=== PATIENT | male | born 1940 | race Caucasian/White ===

== ENCOUNTER → 2017-06-23 | Outpatient (CLI) | payer OTHER ==
[~2017-06-23] MED LIST: AFRIN15 ML NASAL; ALDACTONE25 MG PO; ATORVASTATIN CA40 MG PO; BAYER CHEWABLE81 MG PO; BENICAR20 MG PO; BYSTOLIC 5 MG5 M1 PO; CELEBREX 200 M200 M1 PO; COLACE100 MG PO; COUMADIN 2 MG TA2 M1 PO; COUMADIN 5 MG TA5 M1 PO; LASIX 40 MG TAB40 M2 PO; MOM PO; NEURONTIN 300300 M1 PO; NORCO 10-325 T1 EACH PO; NORCO 5-325 TA1 EACH PO; PRADAXA150 MG PO; PROTONIX40 M1 PO; SENNA PO; TYLENOL325 MG PO; VITAMIN B-12500 MCG PO; VITAMIN D1000 UNI1 PO
== END ==
LOC: HYPER 03-04 11:19
DX: L97.821 Non-pressure chronic ulcer of other part of left lower leg limited to breakdown of skin (principal); L97.811 Non-pressure chronic ulcer of other part of right lower leg limited to breakdown of skin; I87.323 Chronic venous hypertension (idiopathic) with inflammation of bilateral lower extremity; I77.9 Disorder of arteries and arterioles, unspecified; I48.1 Persistent atrial fibrillation; I25.10 Atherosclerotic heart disease of native coronary artery without angina pectoris; E78.00 Pure hypercholesterolemia, unspecified; I12.9 Hypertensive chronic kidney disease with stage 1 through stage 4 chronic kidney disease, or unspecified chronic kidney disease; N18.9 Chronic kidney disease, unspecified; I25.2 Old myocardial infarction; M19.90 Unspecified osteoarthritis, unspecified site; M86.9 Osteomyelitis, unspecified; F17.200 Nicotine dependence, unspecified, uncomplicated; Z96.611 Presence of right artificial shoulder joint; Z96.612 Presence of left artificial shoulder joint; Z86.73 Personal history of transient ischemic attack (TIA), and cerebral infarction without residual deficits

== ENCOUNTER → 2017-06-30 | Outpatient (CLI) | payer OTHER | LOC: HYPER 07:14 | DX: L97.821 Non-pressure chronic ulcer of other part of left lower leg limited to breakdown of skin (principal); L97.811 Non-pressure chronic ulcer of other part of right lower leg limited to breakdown of skin; I87.323 Chronic venous hypertension (idiopathic) with inflammation of bilateral lower extremity; I77.9 Disorder of arteries and arterioles, unspecified; M79.89 Other specified soft tissue disorders; I48.1 Persistent atrial fibrillation; I25.10 Atherosclerotic heart disease of native coronary artery without angina pectoris; I25.2 Old myocardial infarction; M19.90 Unspecified osteoarthritis, unspecified site; M86.9 Osteomyelitis, unspecified; F17.200 Nicotine dependence, unspecified, uncomplicated; Z96.611 Presence of right artificial shoulder joint; Z96.612 Presence of left artificial shoulder joint ==

== ENCOUNTER → 2017-07-07 | Outpatient (CLI) | payer OTHER | LOC: HYPER 06:51 | DX: I87.323 Chronic venous hypertension (idiopathic) with inflammation of bilateral lower extremity (principal); R60.0 Localized edema; I77.9 Disorder of arteries and arterioles, unspecified; M79.669 Pain in unspecified lower leg; M79.89 Other specified soft tissue disorders; I25.10 Atherosclerotic heart disease of native coronary artery without angina pectoris; E78.00 Pure hypercholesterolemia, unspecified; I25.2 Old myocardial infarction; M19.90 Unspecified osteoarthritis, unspecified site; I12.9 Hypertensive chronic kidney disease with stage 1 through stage 4 chronic kidney disease, or unspecified chronic kidney disease; N18.9 Chronic kidney disease, unspecified; F17.210 Nicotine dependence, cigarettes, uncomplicated ==

== ENCOUNTER → 2017-07-14 | Outpatient (CLI) | payer OTHER | LOC: HYPER 07:08 | DX: I87.333 Chronic venous hypertension (idiopathic) with ulcer and inflammation of bilateral lower extremity (principal); L97.821 Non-pressure chronic ulcer of other part of left lower leg limited to breakdown of skin; L97.811 Non-pressure chronic ulcer of other part of right lower leg limited to breakdown of skin; M79.89 Other specified soft tissue disorders; I48.1 Persistent atrial fibrillation; M19.90 Unspecified osteoarthritis, unspecified site; I25.2 Old myocardial infarction; M86.8X6 Other osteomyelitis, lower leg; I25.10 Atherosclerotic heart disease of native coronary artery without angina pectoris; E78.00 Pure hypercholesterolemia, unspecified; F17.200 Nicotine dependence, unspecified, uncomplicated; Z96.612 Presence of left artificial shoulder joint; Z86.73 Personal history of transient ischemic attack (TIA), and cerebral infarction without residual deficits; Z96.611 Presence of right artificial shoulder joint ==

== ENCOUNTER → 2017-08-04 | Outpatient (CLI) | payer OTHER | LOC: HYPER 07-28 11:29 | DX: I87.333 Chronic venous hypertension (idiopathic) with ulcer and inflammation of bilateral lower extremity (principal); L97.821 Non-pressure chronic ulcer of other part of left lower leg limited to breakdown of skin; L97.811 Non-pressure chronic ulcer of other part of right lower leg limited to breakdown of skin; M86.8X8 Other osteomyelitis, other site; I48.91 Unspecified atrial fibrillation; I25.10 Atherosclerotic heart disease of native coronary artery without angina pectoris; I25.2 Old myocardial infarction; I77.9 Disorder of arteries and arterioles, unspecified; E78.00 Pure hypercholesterolemia, unspecified; M19.90 Unspecified osteoarthritis, unspecified site; F17.200 Nicotine dependence, unspecified, uncomplicated; M79.89 Other specified soft tissue disorders; Z96.612 Presence of left artificial shoulder joint; Z86.73 Personal history of transient ischemic attack (TIA), and cerebral infarction without residual deficits; Z96.611 Presence of right artificial shoulder joint ==

== ENCOUNTER → 2017-08-18 | Outpatient (CLI) | payer OTHER | LOC: HYPER 06:49 | DX: I87.323 Chronic venous hypertension (idiopathic) with inflammation of bilateral lower extremity (principal); L97.821 Non-pressure chronic ulcer of other part of left lower leg limited to breakdown of skin; L97.811 Non-pressure chronic ulcer of other part of right lower leg limited to breakdown of skin; I12.9 Hypertensive chronic kidney disease with stage 1 through stage 4 chronic kidney disease, or unspecified chronic kidney disease; N18.9 Chronic kidney disease, unspecified; I25.10 Atherosclerotic heart disease of native coronary artery without angina pectoris; I25.2 Old myocardial infarction; I48.1 Persistent atrial fibrillation; E78.00 Pure hypercholesterolemia, unspecified; M19.90 Unspecified osteoarthritis, unspecified site; M86.8X8 Other osteomyelitis, other site; M79.89 Other specified soft tissue disorders; I77.9 Disorder of arteries and arterioles, unspecified; F17.200 Nicotine dependence, unspecified, uncomplicated; Z96.653 Presence of artificial knee joint, bilateral; Z96.612 Presence of left artificial shoulder joint; Z96.611 Presence of right artificial shoulder joint; Z86.73 Personal history of transient ischemic attack (TIA), and cerebral infarction without residual deficits ==

== ENCOUNTER → 2017-09-01 | Outpatient (CLI) | payer OTHER | LOC: HYPER 07:07 | DX: I87.333 Chronic venous hypertension (idiopathic) with ulcer and inflammation of bilateral lower extremity (principal); L97.821 Non-pressure chronic ulcer of other part of left lower leg limited to breakdown of skin; L97.811 Non-pressure chronic ulcer of other part of right lower leg limited to breakdown of skin; M86.8X8 Other osteomyelitis, other site; I25.10 Atherosclerotic heart disease of native coronary artery without angina pectoris; I25.2 Old myocardial infarction; I48.1 Persistent atrial fibrillation; E78.5 Hyperlipidemia, unspecified; I77.9 Disorder of arteries and arterioles, unspecified; M19.90 Unspecified osteoarthritis, unspecified site; M79.89 Other specified soft tissue disorders; M79.669 Pain in unspecified lower leg; F17.200 Nicotine dependence, unspecified, uncomplicated; Z79.02 Long term (current) use of antithrombotics/antiplatelets; Z86.73 Personal history of transient ischemic attack (TIA), and cerebral infarction without residual deficits; Z96.612 Presence of left artificial shoulder joint; Z96.611 Presence of right artificial shoulder joint ==

== ENCOUNTER → 2017-09-18 | Outpatient (CLI) | payer OTHER | LOC: HYPER 06:54 | DX: I87.323 Chronic venous hypertension (idiopathic) with inflammation of bilateral lower extremity (principal); L97.821 Non-pressure chronic ulcer of other part of left lower leg limited to breakdown of skin; L97.811 Non-pressure chronic ulcer of other part of right lower leg limited to breakdown of skin; I12.9 Hypertensive chronic kidney disease with stage 1 through stage 4 chronic kidney disease, or unspecified chronic kidney disease; N18.9 Chronic kidney disease, unspecified; M86.8X8 Other osteomyelitis, other site; E78.00 Pure hypercholesterolemia, unspecified; I25.2 Old myocardial infarction; I25.10 Atherosclerotic heart disease of native coronary artery without angina pectoris; I77.9 Disorder of arteries and arterioles, unspecified; I48.1 Persistent atrial fibrillation; M79.669 Pain in unspecified lower leg; M79.89 Other specified soft tissue disorders; M19.90 Unspecified osteoarthritis, unspecified site; F17.200 Nicotine dependence, unspecified, uncomplicated; Z96.612 Presence of left artificial shoulder joint; Z86.73 Personal history of transient ischemic attack (TIA), and cerebral infarction without residual deficits; Z79.02 Long term (current) use of antithrombotics/antiplatelets; Z96.611 Presence of right artificial shoulder joint ==

== ENCOUNTER → 2017-10-07 | Outpatient (CLI) | payer OTHER | LOC: HYPER 07:09 | DX: I87.323 Chronic venous hypertension (idiopathic) with inflammation of bilateral lower extremity (principal); L97.821 Non-pressure chronic ulcer of other part of left lower leg limited to breakdown of skin; L97.811 Non-pressure chronic ulcer of other part of right lower leg limited to breakdown of skin; I12.9 Hypertensive chronic kidney disease with stage 1 through stage 4 chronic kidney disease, or unspecified chronic kidney disease; N18.9 Chronic kidney disease, unspecified; M86.8X8 Other osteomyelitis, other site; I77.9 Disorder of arteries and arterioles, unspecified; I48.1 Persistent atrial fibrillation; I25.10 Atherosclerotic heart disease of native coronary artery without angina pectoris; E78.00 Pure hypercholesterolemia, unspecified; I25.2 Old myocardial infarction; M79.669 Pain in unspecified lower leg; M79.89 Other specified soft tissue disorders; M19.90 Unspecified osteoarthritis, unspecified site; F17.200 Nicotine dependence, unspecified, uncomplicated; Z79.02 Long term (current) use of antithrombotics/antiplatelets; Z86.73 Personal history of transient ischemic attack (TIA), and cerebral infarction without residual deficits; Z96.612 Presence of left artificial shoulder joint; Z96.611 Presence of right artificial shoulder joint ==

== ENCOUNTER → 2017-10-20 | Outpatient (CLI) | payer OTHER | LOC: HYPER 07:16 | DX: I87.323 Chronic venous hypertension (idiopathic) with inflammation of bilateral lower extremity (principal); L97.821 Non-pressure chronic ulcer of other part of left lower leg limited to breakdown of skin; L97.811 Non-pressure chronic ulcer of other part of right lower leg limited to breakdown of skin; M79.89 Other specified soft tissue disorders; I13.10 Hypertensive heart and chronic kidney disease without heart failure, with stage 1 through stage 4 chronic kidney disease, or unspecified chronic kidney disease; N18.9 Chronic kidney disease, unspecified; I25.10 Atherosclerotic heart disease of native coronary artery without angina pectoris; E78.00 Pure hypercholesterolemia, unspecified; I48.91 Unspecified atrial fibrillation; I77.9 Disorder of arteries and arterioles, unspecified; I25.2 Old myocardial infarction; M86.8X8 Other osteomyelitis, other site; M19.90 Unspecified osteoarthritis, unspecified site; F17.200 Nicotine dependence, unspecified, uncomplicated; Z79.02 Long term (current) use of antithrombotics/antiplatelets; Z86.73 Personal history of transient ischemic attack (TIA), and cerebral infarction without residual deficits ==

== ENCOUNTER 2018-09-26 20:35 | Inpatient (IN) | payer OTHER ==
[~2018-09-26] VITALS: Ht 190.5 cm; Wt 108.5 kg
--- NOTE | ~2018-09-26 | HC ---
[facility] [place] [address] CONSULTATION Name: TAYO MENESES Room #: 356-P ADM IN M.R.#: [id number] Admission: 09/26/18 ������������������ Attend Phys: Sacha Mcdermott Discharge: ������������������ Date of : 38 Report #: [id number] THIS REPORT FOR: //name// CC: Pascual Mcdermott DATE OF SERVICE: 09/27/2018 REASON FOR CONSULTATION: Hyperkalemia and elevated creatinine level. HISTORY OF PRESENT ILLNESS: This is an 78-year-old male with several chronic medical problems. He has a long history of atrial fibrillation. He has also had some hypertension. He has had some vascular disease in addition. He was on his usual chronic medications and there is some debate about what those actually include. At minimum he was on some losartan 100 mg daily, spironolactone 25 mg daily, some Bystolic 5 mg daily, about 10 days ago, he had a lesion removed from his left duncan. This leg wounds are required some extensive excision and with concern of infection he was placed on some Bactrim, which he was taking twice a day. He began feeling weaker and came to the Emergency Room yesterday. Upon presentation to the Emergency Room, he was found to be hyperkalemic with a potassium of 7.3. His bicarbonate is 20, sodium was 129. Glucose was 111, BUN 96, creatinine 3.8. He had no EKG changes of hyperkalemia. He was in his usual chronic atrial fibrillation. He was treated in the Emergency Room with insulin, dextrose, albuterol, Kayexalate, some IV fluids. Within a couple of hours his potassium was down to 6.7. He was continued on IV fluids overnight. The Kayexalate has had its effect as he has had several stools. In addition, with his creatinine level of 3.8, we reviewed that he has some chronic kidney disease with a baseline creatinine in the 1.6 range that at least as recently as 01/2017. I do not have the interim creatinine levels. He has seen a dermatological surgeon at [facility] who has told him that his renal function is stable. He is chronically on the losartan. He is unaware of proteinuria, hematuria, nephrolithiasis, urinary tract infections. A prior urinalysis from 5 years ago showed no proteinuria at that time, but I do not have a current urinalysis. It has been ordered. With his weakness, he is not quite as much intake of liquids. He states he has no trouble voiding urine. No nonsteroidal exposures. No contrast exposures. His only concern from a medication standpoint is his Emergency Room meds list not only the losartan, but also some olmesartan 20 mg daily, but the patient is unaware of whether he is actually on the olmesartan or not. He does readily recognized the losartan as well as the spironolactone. PAST MEDICAL HISTORY: Longstanding hypertension. He also has chronic atrial fib and is chronically on Xarelto. 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 He was hospitalized then, received tPA, and had fairly good response to that and spent some time on the rehab floor before going home. He has had prior partial colon resection for diverticular disease. [facility] [address] [place] [address] CONSULTATION Name: TAYO MENESES Room #: 356-P ADM IN M.R.#: [id number] Admission: 09/26/18 ������������������ Attend Phys: Sacha Mcdermott Discharge: ������������������ Date of : 38 Report #: [id number] He has had a prior appendectomy. He has had many joint surgeries over the years and I will not recount all of those. He has chronic kidney disease as noted above. He knows of no prostate trouble. MEDICATIONS: Again include losartan 100 mg daily, Bystolic 5 mg daily, spironolactone 25 mg daily. He is also on atorvastatin 40 mg daily, tramadol 50 mg twice daily, Xarelto 15 mg daily, vitamin D 1000 units daily and some gabapentin for some peripheral neuropathy 300 mg b.i.d., again we were uncertain about the olmesartan. He has been on the Bactrim twice daily just for the past 10 days. ALLERGIES: No known medication allergies. FAMILY HISTORY: Unremarkable. SOCIAL HISTORY: The patient is , currently lives in [place], [place]. 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 REVIEW OF SYSTEMS: Currently, denies dyspnea, cough, chest pain or palpitations. He is unaware of irregular heart rhythm except he knows that he is always in atrial fibrillation. Appetite has been a bit down. He had one episode of diarrhea prior to coming in. He has had more since he came in after getting the Kayexalate. Denies abdominal pain at this time. He has chronic lower extremity edema of both legs. He had the recent excision from his left leg of a benign lesion. He has chronic erythema of the legs with the chronic edema. He walks with an assistive device, but he is able to get around. He does not really notice any weakness on the left side since his stroke. 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 He has obstructive sleep apnea, but does not tolerate CPAP. Complains of no dyspnea at this time. PHYSICAL EXAMINATION: GENERAL: A very pleasant 78-year-old male, awake, alert and oriented at this time. VITAL SIGNS: Blood pressure 103/59, heart rate 86 and irregular, temperature 98.3. He has had no fever since admission, oxygen saturation 97%. HEENT: Shows right eye has reactive pupils, nonicteric sclerae on the right. Oral mucosa is moist. NECK: Supple without adenopathy, thyromegaly, JVD or bruit. CHEST: Generally clear bilaterally. HEART: Has an irregularly irregular rhythm. ABDOMEN: Has bowel sounds, which are present, soft, nontender at this time. I cannot palpate organomegaly or masses. EXTREMITIES: Show 2+ peripheral pulses. No upper extremity edema and the 2+ bilateral lower extremity edema, which appears chronic, with diffuse erythema [address] [address] CONSULTATION Name: TAYO MENESES Room #: 356-P [facility] IN M.R.#: [id number] Admission: 09/26/18 ������������������ Attend Phys: Sacha Mcdermott Discharge: ������������������ Date of : 38 Report #: [id number] below the knees. No active drainage from a wrapped area on both the left and the right leg. LABORATORY DATA: Chest x-ray is visualized and is clear. Renal ultrasound is as noted above. Labs from this morning, sodium 136, potassium down to 6.2, chloride 104, bicarbonate 20, BUN 90, creatinine 3.6, glucose 97, calcium 8.4, phosphorus 5.2, magnesium 2.6. Normal liver function tests. White count 6.9, hemoglobin 10.4, hematocrit 30.9, platelets 154,000. Differential on the white count 83 neutrophils, 7 lymphs, 8 monos, 1 eosinophil. Urinalysis not back yet. ASSESSMENT: 1. Hyperkalemia. Upon presentation, he had no EKG changes of hyperkalemia. He was treated in the Emergency Room, potassium level started to drop. It has now come down further. He was on both the losartan (uncertain about the second angiotensin receptor charly), spironolactone, and then the Bactrim was added which would have tipped things over the edge as far as potassium levels. At this time, with him improving, I will continue him on some IV fluids. We will give him a dose of furosemide to help clear some additional potassium. This should correct in the next 24-48 hours. Down the line, certainly I think an angiotensin receptor charly is fine. We will need to be careful about also using the spironolactone and hopefully we will have to give him any more of the Bactrim. 2. Elevated creatinine on top of chronic kidney disease stage 3. Blood pressures have been on the low side. He has some chronic edema. He got some additional volume in the Emergency Room. I will cut his rate down slightly, again the addition of the Bactrim has caused some of the change in creatinine level related to creatinine excretion. With adequate volume replacement and some time off the Bactrim this will correct. 3. Chronic atrial fibrillation, continue his anticoagulation. 4. Cerebrovascular accident in 2017, thought to be embolic, continues on anticoagulation. 5. Hypotension. He has been on the low side. Certainly we will not want to over medicate him, keep him with adequate perfusion. 6. Chronic lower extremity edema. PLAN: 1. I will cut his IV fluids down to 100 mL per hour. We will continue the normal saline. 2. Single dose of furosemide today to help with additional potassium clearance. 3. Continue to hold his angiotensin receptor charly and spironolactone at this time. 4. No further Bactrim. 5. Repeat labs in the morning. [facility] [address] [place] [address] CONSULTATION Name: TAYO MENESES Room #: 356-P ADM IN M.R.#: [id number] Admission: 09/26/18 ������������������ Attend Phys: Sacha Mcdermott Discharge: ������������������ Date of : 38 Report #: [id number] 6. We will check urinalysis and related urine studies today. 7. We will follow along the care of this very pleasant patient. ��������������������������������������������� ���������������������������������������� By: ��������������������������������������������� [id number] Jeffrey Grigsby MD /nt
--- NOTE | ~2018-09-26 | HC ---
[facility] [place] [address] CONSULTATION Name: TAYO MENESES Room #: 356-P ADM IN M.R.#: [id number] Admission: 09/26/18 ������������������ Attend Phys: Sacha Mcdermott Discharge: ������������������ Date of : 38 Report #: [id number] THIS REPORT FOR: //name// CC: Pascual Mcdermott DATE OF SERVICE: 09/27/2018 REASON FOR CONSULTATION: Cellulitis of both lower extremities with venous stasis and ulcerations. 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 He is a wound care patient of Dr. Morejon followed for venous stasis with ulceration of the lower extremities. He had recently been placed on Bactrim for some wounds of the lower extremities with small ulcers and weeping. He had also small skin cancer removed from the right pretibial leg, wound did not heal. The patient was admitted to the Emergency Room with weakness and hyperkalemia from renal failure. The patient has felt weak and has fallen a couple of times. He has a history of cerebrovascular accident. He also had some anorexia, weakness and unsteadiness. The patient complains for the past week or two HE has had a small open wound of his legs with some drainage and weeping of fluid. He also may have had some minor trauma to his legs creating some wound, which did not heal. He says that his legs have been red, but really do not hurt. PAST MEDICAL HISTORY: Status post cerebrovascular accident, chronic kidney disease with hyperkalemia, neuropathy, atrial fibrillation, chronic venous stasis of lower extremities, hypertension, hypercholesterolemia, idiopathic neuropathy, atrial fibrillation, status post right posterior frontal lobe cerebrovascular accident. ALLERGIES: ADHESIVE TAPE. MEDICATIONS: Lasix, Neurontin, Cozaar, Xarelto, Ultram, Lipitor, Bystolic, Aldactone, Tylenol. PAST SURGICAL HISTORY: Bilateral total shoulder replacement, bilateral rotator cuff repairs, lumbar laminectomy, colon resection for diverticulitis, right total knee in 10/2013. SOCIAL HISTORY: Does not drink. He is a cigarette smoker. PHYSICAL EXAMINATION: GENERAL: Shows a chronically ill-appearing elderly gentleman who is a good historian. VITAL SIGNS: Temperature 36.8, pulse 101, respirations 18, blood pressure 103/59. [address] [address] CONSULTATION Name: TAYO MENESES Room #: 356-P [facility] IN M.R.#: [id number] Admission: 09/26/18 ������������������ Attend Phys: Sacha Mcdermott Discharge: ������������������ Date of : 38 Report #: [id number] HEENT: Mucous membranes are moist. The patient has blindness opacification of the left eye from previous trauma. NECK: Supple. RESPIRATIONS: Unlabored. HEART: Rate is regular. ABDOMEN: Soft. EXTREMITIES: Shows some redness of both lower legs circumferentially. There is a small open ulcer of the left upper pretibial area measuring 2 x 1.5 cm with some adherent exudate. There is some other small wounds of both legs with drainage. Both legs show moderate cellulitis, but are nontender. Dorsalis pedis pulses are not palpable. IMPRESSION: 1. Severe hyperkalemia related to renal failure. 2. Status post cerebrovascular accident. 3. Chronic atrial fibrillation, on Xarelto. 4. Weakness. 5. Chronic venous stasis with inflammation and ulceration, bilateral lower extremity cellulitis and small open wound to the lower legs. PLAN: Wound culture of the open wounds of the legs. The patient is on IV antibiotics, vancomycin and clindamycin. Order mupirocin topical bordered foam to small open areas, will perform lower extremity arterial Dopplers to assess for arterial flow so the compression can be done if arterial flow is adequate. Notify Dr. Morejon the patient is in the hospital. Dr. Morejon has cared for this patient before. ��������������������������������������������� ���������������������������������������� By: ��������������������������������������������� [id number] Mono Amador MD /nt
--- NOTE | ~2018-09-26 | HC ---
[facility] [place] [place] [address] CONSULTATION Name: TAYO MENESES Room #: 356-P [facility] IN M.R.#: [id number] Admission: 09/26/18 ������������������ Attend Phys: Jamie Bush MD Discharge: 09/29/18 ������������������ Date of : 38 Report #: [id number] THIS REPORT FOR: //name// CC: Pascual Bush DATE OF SERVICE: 09/29/2018 HISTORY OF PRESENT ILLNESS: The patient is an 78-year-old white male, previously known to me, admitted with significant weakness and some hypotension. He has had a couple of falls including a fall a couple of weeks ago. He was having difficulty trying to get up steps. He has bilateral hand numbness and bilateral lower extremity numbness and weakness consistent with his premorbid idiopathic peripheral neuropathy. The patient was noted to have acute renal insufficiency superimposed on chronic kidney disease and had a severe increase in potassium at 7.3. BUN 96, creatinine 3.8. He has shown some improvement with potassium now down to 5.7, BUN 74, and creatinine 2.7. He has been diagnosed with bilateral lower extremity cellulitis. He has lower extremity wounds. He had been on Bactrim. Infectious Disease is involved as well as wound care. He is also being treated for chronic atrial fibrillation. He is noted to have venous stasis dermatitis, cellulitis, vascular ulcers. He also was noted to have right lower lobe collapse. He has multiple medical comorbidities and has had a significant decrease in his overall functional abilities. We are seeing him in rehabilitation medicine consultation. PAST MEDICAL HISTORY: Includes a prior right posterior frontal lobe CVA back in 2017. He has a history of hypertension, hyperlipidemia, peripheral vascular disease, and degenerative arthritis. He has a history of idiopathic neuropathy, unknown etiology, which he has had for approximately the last 7 years. Has history of diverticulitis, chronic edema of the lower extremities, obstructive sleep apnea. He is noted to have a CPAP at home. PAST SURGICAL HISTORY: Includes multiple joint surgeries including bilateral shoulders, bilateral hips, one knee, lumbar laminectomy, and left eye surgery x 5 with blindness. He has had finger and toe surgeries. HABITS: Past history of tobacco abuse, noted to chew tobacco. No history of alcohol abuse. MEDICATIONS: Please see the full medication listing, these are noted to include vitamins, herbals, and supplements. SOCIAL HISTORY: He lives in a house with his , 2-tianna house, 2 steps in with handrails. There are 13 inside steps with a stair glide. He did not utilize the stair glide, but his does. He has COPD. They have kids and grandkids that assist. He did get out in the community, some shopping trips, [facility] [address] [place] [address] CONSULTATION Name: TAYO MENESES Room #: 356-P [facility] IN M.R.#: [id number] Admission: 09/26/18 ������������������ Attend Phys: Jamie Bush MD Discharge: 09/29/18 ������������������ Date of : 38 Report #: [id number] etc. utilizing the cane. He was still driving. 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 REVIEW OF SYSTEMS: No current complaints of chest pain, shortness of breath, or abdominal discomfort. He does have numbness of the hands and lower extremities. He complains of generalized weakness. He had some diarrhea, which appears to be improving. He does have left eye blindness. He has chronic significant joint problems with multiple total joint replacements. PHYSICAL EXAMINATION: GENERAL: He is a pleasant, tall, 76-year-old white male in no obvious distress. VITAL SIGNS: Last recorded temperature 98, pulse 98, respirations 18, blood pressure 117/72. NEUROMUSCULOSKELETAL: He is alert, good historian. 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 Facies are symmetric. He has decreased range of motion of both shoulders with prior total shoulders. 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 Upper body strength is probably a grade 4-/5. He does have decreased distal sensation with his hands. In his lower extremities, both legs are wrapped. He has had a prior total joint replacements as noted above. He has marked decreased proprioception in bilateral large toes with decreased sensation and stocking distribution distally. Lower extremity strength is probably a grade 4-/5. Tone appeared to be intact. Functionally, he has been mod assist trying to come to stand. He has been some short distance gait mod assist with a front-wheeled walker. ASSESSMENT: An 78-year-old white male with the following problem list: 1. Idiopathic polyneuropathy with numbness and weakness involving both lower extremities greater than upper extremities. 2. Medical complexity with generalized debilitation. 3. Acute renal insufficiency with severe hyperkalemia, superimposed on chronic kidney disease. 4. Bilateral lower extremity cellulitis. 5. History of diverticulitis, status post colon resection. 6. Atrial fibrillation, on Xarelto. 7. Normocytic anemia with GI involved. 8. Partial lung collapse, right middle lobe. 9. Deep venous thrombosis prophylaxis. 10. Chronic atrial fibrillation. PLAN: The patient is a candidate for an acute in-hospital inpatient rehabilitation stay. Planning on transfer to the acute [address] [place] [address] inpatient rehabilitation birch when medically ready and bed available. ��������������������������������������������� ���������������������������������������� By: ��������������������������������������������� [phone] Chandrakant Zayas MD /nt
[2018-09-26 20:36] VITALS: BP 129/69
[2018-09-26 21:26] LABS: ABSOLUTE NEUTROPHILS 5.8 thou/uL (1.4-8.2); BASOPHILS 0.6 % (0.0-2.0); EOSINOPHILS 1.1 % (0.0-3.0); HEMOGLOBIN 11.6 gm/dL (14.0-18.0); LYMPHOCYTES 7.4 % (24.0-44.0); MCH 30.7 pg (26.0-34.0); MCV 93.2 fL (80.0-100.0); MONOCYTES 7.8 % (1.0-8.0); PLATELET COUNT 176 thou/uL (150-400); POLYS 83.1 % (36.0-66.0); RBC 3.76 mil/uL (4.50-6.00); WBC 6.9 thou/uL (4.0-11.0)
[2018-09-26 21:42] LABS: ALBUMIN 3.5 g/dL (3.4-5.0); CREATININE 3.8 mg/dL (0.7-1.3); MAGNESIUM 2.6 mg/dL (1.8-2.4); TOTAL BILIRUBIN 0.5 mg/dL (<0.1-1.0); TOTAL PROTEIN 7.1 g/dL (6.4-8.2); TROPONIN-I 0.12 ng/mL (<0.06)
[2018-09-26 21:47] LABS: POTASSIUM 7.3 mmol/L (3.5-5.1)
--- NOTE | 2018-09-26 21:48 | NUR ---
CRITICAL LAB RESULT K+7.3 - DR. TORO NOTIFIED AND NURSE MADE AWARE
[2018-09-26] MEDS ORDERED: COZAAR 25 MG TA25 M1 PO (23:09)
[2018-09-26] MEDS ORDERED: XARELTO15 MG PO (23:10)
[2018-09-26] MEDS ORDERED: TRAMADOL 50 MG50 MG PO ×2 (23:12→23:14)
[2018-09-26 23:28] VITALS: BP 130/98
--- NOTE | 2018-09-26 23:29 | NUR ---
HAND OFF TOOL SENT TO 3W
[2018-09-27] VITALS: BP 130/98
[2018-09-27 00:20] VITALS: BP 146/70
--- NOTE | 2018-09-27 03:12 | NUR ---
PATIENT WAS A NEW ADMISSION TO THE UNIT THIS SHIFT. HE ARRIVED VIA CART FROM THE ER AND WAS ABLE TO AMBULATE TO THE BED WITH ASSISTANCE INCIDENT FREE. PATIENT IS ALERT AND ORIENTED AND ABLE TO PARTICIPATE IN ADMISSION PROCESS AND CALL APPROPRIATELY FOR ASSISTANCE. NURSE TO COMPLETE ADMISSION AND INITIATE CARE PLAN.
[2018-09-27 05:30] LABS: HEMATOCRIT 30.9 % (42.0-52.0); HEMOGLOBIN 10.4 gm/dL (14.0-18.0); MCH 31.2 pg (26.0-34.0); MCHC 33.6 g/dL (28.0-37.0); MCV 92.8 fL (80.0-100.0); RBC 3.33 mil/uL (4.50-6.00); RDW 15.9 % (10.5-14.5); WBC 6.9 thou/uL (4.0-11.0)
[2018-09-27 05:36] VITALS: BP 105/60
[2018-09-27 06:25] LABS: CALCIUM 8.4 mg/dL (8.5-10.1); CREATININE 3.6 mg/dL (0.7-1.3); PHOSPHORUS 5.2 mg/dL (2.5-4.9); TROPONIN-I 0.1 ng/mL (<0.06)
[2018-09-27 06:29] LABS: POTASSIUM 6.2 mmol/L (3.5-5.1)
[2018-09-27 07:25] VITALS: BP 103/59
[2018-09-27 16:00] VITALS: BP 108/67
[2018-09-27 16:33] LABS: CALCIUM 8.5 mg/dL (8.5-10.1); CREATININE 3.8 mg/dL (0.7-1.3)
[2018-09-27 16:37] LABS: POTASSIUM 6.6 mmol/L (3.5-5.1)
--- NOTE | 2018-09-27 18:00 | NUR ---
PT TREATED FOR ELEVATED K TODAY..SEE ORDERS..WILL MONITOR..
[2018-09-27 19:24] LABS: URINE BILIRUBIN NEGATIVE (Negative); URINE BLOOD NEGATIVE (Negative); URINE CLARITY CLEAR; URINE COLOR YELLOW; URINE GLUCOSE-RANDOM* NEGATIVE (Negative); URINE KETONES NEGATIVE (Negative); URINE LEUKOCYTES-REFLEX NEGATIVE (Negative); URINE NITRITE-REFLEX NEGATIVE (Negative); URINE PROTEIN (DIPSTICK) NEGATIVE (Negative); URINE UROBILINOGEN 0.2 E.U./dl (0.2-1.0)
[2018-09-27 20:00] VITALS: BP 101/49
[2018-09-27 20:48] LABS: PROT/CREAT RATIO 0.1; URINE CREATININE-RANDOM* 105.8 mg/dL; URINE PROTEIN-RANDOM* 9.7 mg/dL (<11.9)
[2018-09-28 01:30] VITALS: BP 133/91
[2018-09-28 04:00] VITALS: BP 112/65
[2018-09-28 07:06] LABS: ALBUMIN 3.3 g/dL (3.4-5.0); CALCIUM 8.3 mg/dL (8.5-10.1); CREATININE 3.5 mg/dL (0.7-1.3); PHOSPHORUS 5.4 mg/dL (2.5-4.9); POTASSIUM 5.7 mmol/L (3.5-5.1)
--- NOTE | 2018-09-28 08:02 | NUR ---
PATIENT IS PROGRESSING IN HIS CARE PLAN. VITAL SIGNS STABLE WITH PATIENT HAVING NO COMPLAINTS OF NAUSEA. PATIENT DID COMPLAIN OF PAIN WHICH WAS TREATED WITH MEDICATION. PATIENT IS FULLY ORIENTED BUT FORGETFUL AT TIMES, BUT CALLS APPROPRIATELY FOR REQUESTS. UP MULTIPLE TIMES TO BATHROOM AND RECLINER WITH MODERATE ASSISTANCE INCIDENT FREE, PATIENT IS A HIGH FALL RISK. PATIENT IS UPSET DUE TO TEMPERATURE IN ROOM WHICH NURSE TRIED TO RECTIFY WITH WORK ORDER FOR [employer] TO ASSESS HEATER. PATIENT WAS ABLE TO VOID APPROPRIATELY. CONTINUE PLAN OF CARE.
[2018-09-28 08:09] VITALS: BP 108/75
--- NOTE | 2018-09-28 08:42 | EKG ---
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 Armenta : 1940 Requested By: Stephon Murphy Order Number: [id number] MD: Herson Lzoa Measurements Intervals [place] Rate: 71 P: [place]: QRS: 28 QRSD: 120 T: 8 QT: 411 QTc: 447 Interpretive Statements Atrial fibrillation Nonspecific intraventricular conduction delay Lead(s) aVF were not used for morphology analysis Compared to ECG 02/14/2017 17:05:50 Intraventricular conduction delay now present Electronically Signed On 09-28-2018 8:41:55 CDT by Herson Loza [email or web address] ��������������������������������������������� <ELECTRONICALLY SIGNED> ���������������������������������������� By: Herson Loza MD ��������������������������������������������� 09/28/18 0841 [id number] Herson Loza MD /EPI
[2018-09-28 11:20] VITALS: BP 116/57
--- NOTE | 2018-09-28 15:32 | NUR ---
WOUND CARE CONSULT; ROUNDING WITH DR HANSEN AND CHRIS GRAIN COMBINE DRIVER. PT IS ALERT AND ORIENTED. HEMOSIDERIN STAINING PRESENT BILATERALLY. LYMPHEDEMA NOTED. BILATERAL LE WOUNDS NOTED, COVERED WITH WOUND DEBRIS. RECOMMENDATIONS; APPLY THERAHONE TO BILATERAL LE WOUND, CHANGE M/W/F PRN DISCUSSED WITH JAYA
--- NOTE | 2018-09-28 15:33 | NUR ---
ASSESSMENT: CM REVIEWED CHART AND MET WITH PATIENT AT THE BEDSIDE. PT WAS ADMITTED WITH GER. PT REPORTS THAT HE LIVES AT HOME WITH HIS IN A HOUSE. PT REPORTS HAVING A COUPLE STEPS TO ENTER THE HOME WITH HANDRAILS. PT REPORTS ONCE INSIDE HE HAS ABOUT 13 STEPS WITH HANDRAILS TO HIS BEDROOM. PT REPORTS HE HAS CANES AND WALKERS AT HOME BUT STATES THAT HE USES HIS CANE MOST OFTEN. PT REPORTS HAVING A CPAP AT HOME. PT REPORTS THAT HE HAS GRAB BARS IN THE SHOWER. PT REPORTS HE HAS VERY SUPPORTIVE FAMILY THAT HELP ASSIST HIM. PTS MOTHER AND DAUGHTER CAME TO VISIT WHILE AT THE BEDSIDE. PT REPORTS HE BELIEVES HE HAS HAD CHCS IN THE PAST. CM DISCUSSED ROLE. PT WILL LIKELY NEED HH VS POST ACUTE CARE AT DISCHARGE. CM WILL CONTNUE TO FOLLOW TO ASSIST NEEDED.
[2018-09-28 16:57] VITALS: BP 92/61
[2018-09-28 19:00] VITALS: BP 100/57
--- NOTE | 2018-09-28 20:16 | NUR ---
PT WAS MEDICATED THIS AM AROUND 0700 FOR FEET PAIN AND HAS DECLINED ANY FURTHER PAIN MEDS..WILL MONITOR
--- NOTE | 2018-09-29 03:15 | NUR ---
PATIENT IS ADVANCING IN HIS CARE PLAN. VITAL SIGNS STABLE WITH PATIENT HAVING NO COMPLAINTS OF NAUSEA. PATIENT DID COMPLAIN OF PAIN IN LOWER LEGS WHICH WAS SUCCESSFULLY TREATED BY MEDICATION. PATIENT REMAINED ALERT AND ORIENTED, BUT WAS MORE FORGETFUL THAN PREVIOUS SHIFTS POSSIBLY DUE TO SLEEP DEPRIVATION. ATRIAL FIB RATE CONTROLLED. PATIENT WAS ABLE TO AMBULATE TO RESTROOM MULTIPLE TIMES WITH ASSISTANCE INCIDENT FREE. CONTINUE PLAN OF CARE.
[2018-09-29 04:21] VITALS: BP 111/76
[2018-09-29 05:51] LABS: ALBUMIN 3.2 g/dL (3.4-5.0); CALCIUM 8.4 mg/dL (8.5-10.1); CREATININE 2.7 mg/dL (0.7-1.3); POTASSIUM 5.7 mmol/L (3.5-5.1)
[2018-09-29 06:00] LABS: ALBUMIN 3.2 g/dL (3.4-5.0); DIRECT BILIRUBIN 0.3 mg/dL (<0.1-0.3); TOTAL BILIRUBIN 0.7 mg/dL (<0.1-1.0); TOTAL PROTEIN 5.9 g/dL (6.4-8.2)
[2018-09-29 07:35] VITALS: BP 117/72
--- NOTE | 2018-09-29 09:42 | NUR ---
Assess for RD consult regarding wt loss. Admit with weakness, acute on chronic kidney injury. Wound care also consulted and pt with lymphedema and bilateral lower extremity wounds. Visit with pt this am, ate 100% and stated appetite was good. Reviewed renal diet as pt with high K and phos levels. Pt reports a usual wt of 220 lb and no wt loss for several years. Current wt is up to 239 lb due to fluids. Renal managing fluid needs. Physician has indicated mild protein calorie malnutrition: RD will defer this dx. Presents at low nutrition risk at this time.
[2018-09-29 11:35] VITALS: BP 96/62
[2018-09-29] MEDS ORDERED: MELATONIN5 M1 PO (12:27)
[2018-09-29] MEDS ORDERED: TRIAMCINOLONE A80 G2 TOP (12:27)
[2018-09-29] MEDS ORDERED: KEFLEX500 M1 PO (12:27)
[2018-09-29] MEDS ORDERED: NICOTINE GUM2 MG MUCOUS MEM (12:27)
[2018-09-29] MEDS ORDERED: ACCUNEB SO1.25 MG/1 INH (12:27)
[2018-09-29] MEDS ORDERED: SODIUM BICARBO650 M3 PO (12:27)
[2018-09-29] MEDS ORDERED: DEMADEX20 MG PO (12:27)
--- NOTE | 2018-09-29 12:42 | NUR ---
WOUND CARE FOLLOW UP; ROUNDING WITH DR HANSEN AND CHRIS FANCY PACKER. THIS PATIENT HAS LYMPHEDEMA WRAPS ON BILATERALLY. DISCSSED THE EFFICACY OF THESE WRAPS. THE PATIENT AGREE TO CONTINUE THEM. RECOMMENDATION; NO CHANGES AT THIS TIME. DISCUSSED WITH RN
--- NOTE | 2018-09-29 13:19 | NUR ---
ON-GOING ASSESSMENT: CM REVIEWED CHART AND MET WITH PATIENT AT THE BEDSIDE. PT IS POSSIBLE DISCHARGE TO TO ACUTE REHAB TODAY. CM MET WITH PATIENT AT THE BEDSIDE. [facility]N CONSULT WAS PLACED FOR PATIENT AND THEY ARE ABLE TO ACCEPT PATIENT. PT REPORTS HE PREFERS TO GO TO 5N AT [facility] HIS CHOICE FOR REHAB. PLANS ARE FOR PATIENT TO GO TO [facility]N ACUTE REHAB LATER THIS AFTERNOON. CM ASKED PT IF HE WANTED CM TO REACH OUT TO HIS TO DISCUSS REHaB. PT STATED NO AND THAT HE WOULD TELL HER IN A BIT. CM DISCUSSED THAT HE WOULD LIKELY BE ABLE TO GO UP THIS AFTERNOON AND CM DID NOT WANT TO CATCH HER OFF GUARD. HE STATES HE WILL CALL HER. CM ATTEMPTED TO CONTACT PATIENTS SON ELAINE BUT VM WAS LEFT.
[2018-09-29 15:09] LABS: KAPPA FREE LIGHT CHAINS 48.3 mg/L (3.3-19.4); KAPPA/LAMBDA RATIO 1.83 (0.26-1.65); LAMBDA FREE LIGHT CHAINS 26.4 mg/L (5.7-26.3)
--- NOTE | 2018-09-29 15:39 | NUR ---
ASSUMED CARE OF PT AT 0700. PT HAS BEEN A&Ox4 WITH SOME FORGETFULNESS. PT HAS BEEN IN A-FLUTTER WITH CONTROLLED RATES. PT HAS DENIED PAIN BUT HAS ANTICIPATED THAT PAIN WILL DEVELOP IN HIS FEET FOLLOWING OT'S APPLICATION OF COMPRESSION WRAPS ON HIS BILATERAL LOWER EXTREMITIES. PT EXPRESSES THE DESIRE TO WORK MORE DILIGENTLY ON HIS ABILITY TO WALK TODAY, CITING THE DESIRE TO BE ABLE TO GO BACK HOME SOONER RATHER THAN LATER. ANTICIPATED DC TO 5N TODAY. PT CONTINUES TO PROGRESS TOWARD HIS POC AND DC GOALS. WILL CONTINUE TO MONITOR AND ASSESS.
--- NOTE | 2018-09-29 15:52 | HC ---
[facility] [place] [address] CONSULTATION Name: TAYO MENESES Room #: 356-P ADM IN M.R.#: [id number] Admission: 09/26/18 ������������������ Attend Phys: Jamie Bush MD Discharge: ������������������ Date of : 38 Report #: [id number] THIS REPORT FOR: //name// CC: Pascual Mcdermott DATE OF SERVICE: 09/27/2018 REASON FOR CONSULTATION: I was asked to evaluate concerning lower extremity cellulitis and wound infection. HISTORY OF PRESENT ILLNESS: The patient is an 78-year-old who was admitted with generalized weakness, found to have acute kidney injury with hyperkalemia. After treatment with Bactrim, he has underlying hypertension, chronic kidney disease. He has chronic venous stasis, both lower extremities, been a longstanding issue for him. Aldie skin cancer to his left pretibial skin, which was resected. Developed a wound from this. Last week, was placed on Bactrim and had significant side effects from this. He has had no fever, chills or sweats. Pain has been minimal. Does have peripheral neuropathy. No history of diabetes. He does smoke cigars. Peripheral vascular studies showed mild diffuse disease with no focal narrowing. REVIEW OF SYSTEMS: Denies any cough, sputum, nausea, vomiting. He has had generalized weakness. He had loose stools after getting Kayexalate. A 10-point review of systems was otherwise negative. PAST MEDICAL HISTORY: Hypertension, hyperlipidemia, bilateral shoulder, bilateral hip and right knee replacement, colon resection for diverticulitis, left eye blind, peripheral vascular disease, cataracts, appendectomy, degenerative arthritis, peripheral neuropathy, chronic kidney disease, TIA, atrial fibrillation, previous stroke. FAMILY HISTORY: Noncontributory. SOCIAL HISTORY: Smoker of cigarettes. No significant alcohol intake. ALLERGIES: ADHESIVE TAPE. MEDICATIONS: As noted on his JUN, now on vancomycin. PHYSICAL EXAMINATION: VITAL SIGNS: Afebrile, hemodynamically stable. GENERAL: He is alert, cooperative. SKIN: With venous stasis dermatitis changes both pretibial legs has a small shallow ulcer over the right pretibial skin with some serous drainage. A deeper wound over the anterior upper pretibial, left leg. Serous drainage from this. [address] [address] CONSULTATION Name: TAYO MENESES Room #: 356-P ADM IN M.R.#: [id number] Admission: 09/26/18 ������������������ Attend Phys: Jamie Bush MD Discharge: ������������������ Date of : 38 Report #: [id number] 2+ edema both lower extremities below the knees. Pulses were palpable. Decreased sensation in his feet to touch. No palpable adenopathy. Blind in the left eye. MOUTH: Without mucositis. NECK: Supple. LUNGS: Clear to auscultation. HEART: Regular, without murmur. ABDOMEN: Soft, nontender, no hepatosplenomegaly or mass. EXTREMITIES: As noted above. NEUROLOGIC: As noted above. Mood normal. LABORATORY STUDIES: Reviewed. Cultures reviewed. Ultrasound of the arteries reviewed. IMPRESSION: 1. Acute kidney injury in the setting of chronic kidney disease following use of Bactrim in addition to his diuretics. 2. Venous stasis disease, bilateral lower extremities. May have a component of cellulitis on the left, but it is mild 3. Atrial fibrillation, diarrhea related to Kayexalate. 4. Generalized weakness, suspect a combination of all of the above. RECOMMENDATION: 1. We will continue with cephalexin. Leg elevation to control edema. Topical steroid for venous stasis disease. Continue localized wound care. 2. Nephrology is working on his potassium and acute kidney injury. We will avoid Bactrim in the future given a combination of diuretics. 3. Continue other current management. I do not feel that stools due to Clostridium difficile in this setting. Less likely related to his Kayexalate. ��������������������������������������������� <ELECTRONICALLY SIGNED> ���������������������������������������� By: Stephon Norris MD ��������������������������������������������� 09/29/18 1552 [id number] Stephon Norris MD /nt
[2018-10-01 11:09] LABS: GLOBULIN TOTAL 2.3 g/dL (2.2-3.9); M-SPIKE Not Observed g/dL (Not Observed)
== END 2018-09-29 15:52 | DRG 683 ==
LOC: ER 20:35 → EROBS 22:43 → 3W 22:43
PROVIDERS: Emergency Medicine; Internal Medicine Nephrology; Nurse Practitioner; Nurse Practitioner Acute Care; ADMIT Internal Medicine
DX: N17.9 Acute kidney failure, unspecified (principal); L03.116 Cellulitis of left lower limb; E87.1 Hypo-osmolality and hyponatremia; L03.115 Cellulitis of right lower limb; J98.19 Other pulmonary collapse; K52.1 Toxic gastroenteritis and colitis; E44.1 Mild protein-calorie malnutrition; E78.00 Pure hypercholesterolemia, unspecified; H54.40 Blindness, one eye, unspecified eye; I73.9 Peripheral vascular disease, unspecified; M19.90 Unspecified osteoarthritis, unspecified site; D64.9 Anemia, unspecified; E87.5 Hyperkalemia; I95.9 Hypotension, unspecified; G62.9 Polyneuropathy, unspecified; I87.2 Venous insufficiency (chronic) (peripheral); I48.2 Chronic atrial fibrillation; N18.3 Chronic kidney disease, stage 3 (moderate); I12.9 Hypertensive chronic kidney disease with stage 1 through stage 4 chronic kidney disease, or unspecified chronic kidney disease; Z96.612 Presence of left artificial shoulder joint; Z96.611 Presence of right artificial shoulder joint; F17.210 Nicotine dependence, cigarettes, uncomplicated; T50.3X5A Adverse effect of electrolytic, caloric and water-balance agents, initial encounter; Z68.29 Body mass index [BMI] 29.0-29.9, adult; Z86.010 Personal history of colon polyps; Y92.89 Other specified places as the place of occurrence of the external cause; Z90.49 Acquired absence of other specified parts of digestive tract; Z86.73 Personal history of transient ischemic attack (TIA), and cerebral infarction without residual deficits; Z79.01 Long term (current) use of anticoagulants; Z79.899 Other long term (current) drug therapy; Z88.8 Allergy status to other drugs, medicaments and biological substances
CPT/HCPCS: 10879

== ENCOUNTER 2018-09-29 12:53 | Inpatient (IN) | payer OTHER ==
[~2018-09-29] VITALS: Ht 185.4 cm; Wt 108.0 kg
--- NOTE | ~2018-09-29 | P ---
[facility] [place] [address] PROCEDURE REPORT Name: TAYO MENESES Room #: 501-A ADM IN M.R.#: [id number] Admission: 09/29/18 ������������������ Attend Phys: Chandrakant Zayas MD Discharge: ������������������ Date of : 38 Report #: [id number] THIS REPORT FOR: //name// CC: Chandrakant Powers DATE OF SERVICE: 10/07/2018 PROCEDURE PERFORMED: Colonoscopy. HISTORY OF PRESENT ILLNESS: The patient is an 78-year-old male with a normocytic anemia, Hemoccult positive stool and rust color stool recently. Plan is for colonoscopy. Reportedly, he had colonoscopy in the last 5 years and it was negative. No family history of colon cancer. Denies any symptoms. His most recent hemoglobin was 11.2 today and 10.7 on the . Plan is for colonoscopy. DESCRIPTION OF PROCEDURE: The risks and benefits of the procedure were explained to the patient, those risks including but not limited to bleeding, perforation and the risk of sedation. He understood these risks and gave informed consent. Sedation was given using propofol per Anesthesia. Next, a digital rectal exam was initially performed, which was normal. Next, using a standard Olympus colonoscope, the scope was placed in the patient's anus and advanced under direct vision to the cecum. The overall prep was excellent. The cecum and ileocecal valve were normal in appearance. Ascending, transverse, descending and sigmoid colon were normal. In the remaining sigmoid colon, surgical anastomosis was noted. The patient had a previous partial sigmoid resection for diverticulitis in the past. No evidence of diverticula were noted. The rectal mucosa was normal. On retroflexion, small nonbleeding internal hemorrhoids were noted. The scope was then withdrawn and the procedure terminated. The patient tolerated the procedure well. IMPRESSION: 1. Surgical anastomosis well healed in the distal remaining sigmoid colon. 2. Small internal hemorrhoids. 3. Otherwise, normal colonoscopy. RECOMMENDATIONS: Observe at this point and monitor hemoglobin, could consider EGD or possible M2 capsule in the future if the patient's hemoglobin drops or if he remains anemic. [facility] [place] [place] [address] [place] [address] PROCEDURE REPORT Name: TAYO MENESES Room #: 501-A [facility] IN M.R.#: [id number] Admission: 09/29/18 ������������������ Attend Phys: Chandrakant Zayas MD Discharge: ������������������ Date of : 38 Report #: [id number] Thank you for allowing me to participate in his care. ��������������������������������������������� ���������������������������������������� By: ��������������������������������������������� [id number] [address] العراقي MD /nt
[~2018-09-29 12:53] MED LIST changes: +ACCUNEB SO1.25 MG/1 INH; +COZAAR 25 MG TA25 M1 PO; +DEMADEX20 MG PO; +KEFLEX500 M1 PO; +MELATONIN5 M1 PO; +NICOTINE GUM2 MG MUCOUS MEM; +SODIUM BICARBO650 M3 PO; +TRAMADOL 50 MG50 MG PO; +TRIAMCINOLONE A80 G2 TOP; +XARELTO15 MG PO
[2018-09-29 16:15] VITALS: BP 115/66
[2018-09-29 16:30] VITALS: BP 115/66
[2018-09-29 19:10] VITALS: BP 111/64
--- NOTE | 2018-09-29 19:21 | NUR ---
PT ADMITTED TO ROOM 501 FROM 3W FOR IDIOPATHIC PERIPHERAL NEUROPATHY AND BLE CELLULITIS. PATIENT A/O X4, BUT NATIVE AND FORGETFUL. VSS ON RA. OFFERED SUPPORTIVE CARE. DISCUSSED WITH PT ABOUT REHAB SCHEDULED. PT TOOK NAP AT ADMISSION, NOTICED THAT PT WAS SHAKING AND JERKING WHILE SLEEPING. PT HAS APNEA AND FAMILY REQUESTS FOR CPAP AT NIGHT. PT DENIES OF PAIN, BUT DOES HAS BACK PAIN WHEN WALKING. UP WITH 2X AT THIS MOMENT FOR SAFETY. PT HAS STRONG UPPER EXTREMETIES BUT WEAK LOWER EXTREMITIES. LYMPHEDEMA OT WRAPPED LEGS BEFORE PT MOVED UP TO 5N. NO ADMISSION PICTURE TAKEN AT THIS MOMENT SINCE PT REFUSES TO REWRAP. BLE DRESSING IN PLACE,BLE EDEMA NOTED. MEDICATIONS LIST WENT OVER WITH PT AND HIS FAMILY AND FAXED TO PHARMACY. ADMISSION ASSESSMENT COMPLETE. CONSENTS SIGNED. GAVE REPORT TO NIGHT NURSE TO CALL FOR CONSULTS, NOTIFY DAY NURSE TO TAKE ADMISSION PICTURES. PT UP IN RECLINER ATE 90% DINNER. USES URINAL HAD 350CC LIGHT YELLOW URINE. FALL PRECAUTIONS IN PLACE. CALL LIGHT WITHIN REACH.
--- NOTE | 2018-09-30 01:24 | NUR ---
PT ALERT AND ORIENTED X 4, VERY FORGETFUL. VOIDS ADEQUATE AMTS CLEAR YELLOW URINE PER URINAL. PT REQUESTED OTILIA WRAPS BE REMOVED FROM RIGHT LEG SINCE HIS HEEL WAS BURNING. WRAPS REMOVED AND RELIEF OF BURNING VERBALIZED. OTILIA WRAP C/D/I TO LEFT LEG. PT REFUSED CPAP TONIGHT. WANTS TO WAIT UNTIL HIS FAMILY CAN BRING HIS MACHINE FROM HOME. C/O GENERALIZED PAIN. TRAMADOL GIVEN AT HS. PT SLEEPING UPON REASSESSMENT. PT SLEEPING IN RECLINER. CHAIR ALARM ON FOR SAFETY. PT APPEARS TO BE SLEEPING ON HOURLY ROUNDS.
[2018-09-30 06:21] LABS: HEMATOCRIT 31.5 % (42.0-52.0); HEMOGLOBIN 10.7 gm/dL (14.0-18.0); MCH 31.3 pg (26.0-34.0); MCHC 33.8 g/dL (28.0-37.0); MCV 92.7 fL (80.0-100.0); RBC 3.4 mil/uL (4.50-6.00); RDW 15.7 % (10.5-14.5); WBC 5.7 thou/uL (4.0-11.0)
[2018-09-30 06:56] LABS: ALBUMIN 3.2 g/dL (3.4-5.0); CALCIUM 8.6 mg/dL (8.5-10.1); CREATININE 2.4 mg/dL (0.7-1.3); PHOSPHORUS 4.8 mg/dL (2.5-4.9); POTASSIUM 5.4 mmol/L (3.5-5.1)
[2018-09-30 08:31] VITALS: BP 115/73
--- NOTE | 2018-09-30 10:20 | NUR ---
chart review. pt up in recliner getting ready to work with ot. intro to cm, team meeting and transition of care. " home with , few step to enter with hand rail, 13 steps to bedroom with hr. still drive, use cane and have walker. manage own medication, use cpap([facility] and have own leg pumps at home for legs. have 2 ladies come in 2 x month to clean. cooks and microwave."/isabel. will cont following as needed for dc needs.
--- NOTE | 2018-09-30 11:15 | NUR ---
ASSUMED CARES AT 0700. PT AWAKE, ALERT AND ORIENTED *4 BUT FORGETFUL. DENIES PAIN. VITALS REMAIN STABLE. LS CLEAR/ DIMINISHED , O2 SATS GREATER 95% ON RA. BS ACTIVE *4, ABDOMEN SOFT AND ROUND, LAST BM 09/29. HS STABLE, EDEMA AND CELLULITIS IN BLE, WOUNDS IN BLE. DRESSING ON BLE CHANGED AND EXTREMITIES ELEVATED. PT UP WITH 1 MIN ASSIST, GAITBELT AND WALKER. Q1H VISUAL CHECKS. CALL LIGHT WITHIN REACH. FALL PRECAUTIONS IN PLACE
--- NOTE | 2018-09-30 12:35 | NUR ---
Nutrition: Pt seen for consult related to diet instruction. Admit to rehab unit with peripheral neuropathy, BLE cellulitis. Intake is good, 100% of meals. UBW 220# currently up significantly with fluid. Renal manages and now on torsemide. RD reviewed renal restrictions with pt on 09/29 while on acute unit and pt reports no additional questions at this time. Consider low risk.
--- NOTE | 2018-09-30 14:14 | NUR ---
Patient participated in community reintegration on 09/30/18 with Physical Therapy. Refer to documentation by PT.
[2018-09-30 19:21] VITALS: BP 116/66
--- NOTE | 2018-09-30 23:18 | NUR ---
PT ASSESSMENT COMPLETED AND VSS. MEDS GIVEN ORDERED AND WELL TOLERATED. FALL PRECUATIONS IN PLACE. SLEEP AND PAIN MEDICATION WORKING WELL. SLEEPING WELL. WILL CONTINUE TO MONITOR FREQUENTLY.
[2018-10-01 08:58] VITALS: BP 117/64
--- NOTE | 2018-10-01 12:54 | NUR ---
ASSUMED CARES AT 0700. PT ALERT AND ORIENTED*4. DENIES PAIN. VITALS REMAIN STABLE. PT CONTINUES TO HAVE CELLULITIS AND WOUNDS IN BLE. LYMPHEDEMA NURSE MASSAGE AND WRAPPED EXTREMITIES WITH OTILIA WRAPS, EXTREMITIES ELEVATED WHEN AT REST. WOUNDS CLEANED AND DRESSING CHANGED. PT UP WITH THERAPY AND TOLERATED WELL, AMBULATED WITH WALKER AND GAITBELT. Q1H VISUAL CHECKS. CALL LIGHT WITHIN REACH. FALL PRECAUTIONS IN PLACE
[2018-10-01 20:45] VITALS: BP 118/62
--- NOTE | 2018-10-02 01:22 | NUR ---
PT ALERT AND ORIENTED X 4, FORGETFUL. AMB TO BR WITH WALKER AND ASSIST X 1. C/O PAIN IN FEET. TRAMADOL GIVEN AT HS PER PT REQUEST. MELATONIN AND BENADRYL GIVEN PER PT REQUEST FOR SLEEP AT HS ALSO. OTILIA WRAPS C/D/I TO BOTH LE'S. BED ALARM ON FOR SAFETY. PT APPEARS TO BE SLEEPING ON HOURLY ROUNDS.
[2018-10-02 05:39] LABS: ALBUMIN 3.1 g/dL (3.4-5.0); CALCIUM 8.8 mg/dL (8.5-10.1); CREATININE 2.1 mg/dL (0.7-1.3); PHOSPHORUS 4.3 mg/dL (2.5-4.9); POTASSIUM 4.4 mmol/L (3.5-5.1)
[2018-10-02 08:41] VITALS: BP 128/67
[2018-10-02 18:56] VITALS: BP 112/63
--- NOTE | 2018-10-02 19:51 | NUR ---
ASSUMED CARE OF PT AT 0715. PT IS A&OX4 AND VITAL SIGNS ARE STABLE. PT HAS OTILIA WRAPS PLACED BY LYMPHEDEMA IN PLACE AND C/D/I. PT TRANSFERS AND AMBULATES WITH 1 PERSON ASSISTANCE USING GAIT BELT AND WALKER. PT FAMILY BROUGHT CPAP RESERVIOR IN TODAY AND RT PROVIDED WATER. PT REPORTED NO PAIN AND PARTICIPATED IN SCHEDULED THERAPIES. MEDICAITONS TAKEN WHOLE WITH THIN LIQUIDS. FALL PRECAUTIONS IN PLACE AND NURSING WILL CONTINUE TO MONITOR.
--- NOTE | 2018-10-03 00:43 | NUR ---
PT ASSESSMENT COMPLETED AND VSS. MEDS GIVEN ORDERED AND WELL TOLERATED. FALL PRECAUTIONS IN PLACE. UP TO THE BATHROOM WITH ASST/GAIT/WALKER. STEADY. VOIDING LARGE AMOUNT OF YELLOW URINE. PT DENIES NEEDS. SLEEPING WELL AFTER SLEEPING MEDICATION. WILL CONTINUE TO MONITOR FREQUENTLY.
[2018-10-03 09:25] VITALS: BP 104/64
--- NOTE | 2018-10-03 11:20 | NUR ---
ASSUMED CARES AT 0700. PT AWAKE, ALERT AND ORIENTED*4. DENIES PAIN. VITALS REMAIN STABLE, PT CONCERNED ABOUT 104/64, ENCOURAGED TO INCREASE FLUID INTAKE. WOUNDS ON BLE CLEANED AND DRESSINGS CHANGED. ACEWRAPS ON BLE R/T CELLULITIS. PT CONTINUES TO HAVE BLE, EXTREMITIES ELEVATED. BS ACTIVE*4, ABDOMEN SOFT AND DISTENDED, MED BM TODAY (PT STATED THAT HE FELT CONSTIPATED), STOOL SOFTENOR ADMINISTERED. PT UP WITH SBA, GAITBELT AND WALKER AND TOLERATED WELL. Q1H VISUAL CHECKS. CALL LIGHT WITHIN REACH
[2018-10-03 21:00] VITALS: BP 117/66
--- NOTE | 2018-10-04 03:14 | NUR ---
assumed care at approx 1900 evening 10/03. pt alert and oriented x4, appropriate and cooperative. pt sitting up in recliner at change of shift resting and watching tv. pt somewhat impulsive not waiting for staff before getting up to go to bathroom. chair alarm on and call light in reach. reminded pt to not get up on his own and please wait for assistance. pt verbalized understanding. pt now in bed appears to be resting soundly. bed alarm on, call light in reach. will continue to monitor.
[2018-10-04 07:27] VITALS: BP 116/68
--- NOTE | 2018-10-04 12:04 | NUR ---
ASSUMED CARE OF PT AT 0715. PT IS A&OX4 AND VITAL SIGNS ARE STABLE. PT IS IMPULSIVE AND FREQUENTLY SELF TRANSFERS AND AMBULATES TO THE RESTROOM AND AROUND ROOM WITHOUT WAITING FOR STAFF TO ASSIST. PT EDUCATED ABOUT FALL PRECAUTIONS AND RISK FOR FALLS. PT REPORTS PAIN IN SHINS WHICH HAVE BEEN TREATED WITH ORAL MEDICAITONS WITH PARTIAL RELIEF. PT PARTICIPATED IN THERAPIES THIS SHIFT AND AMBULATES WITH 1 PERSON STAND BY ASSISTANCE WITH GAIT BELT AND WALKER. FALL PRECAUTIONS IN PLACE AND NURSING WILL CONTINUE TO MONITOR.
[2018-10-04 21:17] VITALS: BP 130/73
--- NOTE | 2018-10-05 01:26 | NUR ---
PT ALERT AND ORIENTED X 4. AMB TO BR WITH WALKER AND ASSIST X 1 WITHOUT DIFFICULTY. CPAP ON DURING THE NIGHT. PT C/O PAIN IN HIS FEET. TRAMADOL GIVEN AT HS. MELATONIN AND BENADRYL GIVEN AT HS PER PT REQUEST FOR SLEEP. OTILIA WRAPS INTACT TO LE'S. BED ALARM ON FOR SAFETY. PT CHECKED ON HOURLY ROUNDS.
[2018-10-05 05:39] LABS: ALBUMIN 3.2 g/dL (3.4-5.0); CALCIUM 8.7 mg/dL (8.5-10.1); CREATININE 1.9 mg/dL (0.7-1.3); PHOSPHORUS 4.5 mg/dL (2.5-4.9); POTASSIUM 3.7 mmol/L (3.5-5.1)
[2018-10-05 07:20] VITALS: BP 95/55
--- NOTE | 2018-10-05 12:30 | NUR ---
cm visited with isabel in room rt bedside nurse passed on that pt wanted hh with anneliese. , " want [facility] with lymphedema specialized for [facility]h. i will just got with you all for hh"/isabel. referral sent to [facility] and will cont following as needed for dc needs.
--- NOTE | 2018-10-05 13:34 | NUR ---
PER CONVERSATION WITH MEGAN ZARATE NP, PATIENT IS TO HAVE A COLONOSCOPY WHILE ON REHAB ON SATURDAY 10/07. THIS IS BEING DONE WHILE INPATIENT DUE TO CONCERNS OF HEME POSITIVE STOOLS AND CHANGE IN STOOL COLOR PER PT CONCERN. PLANS FOR THERAPIES TO ENSUE FOR FRIDAY AND FRIDAY IS TENTATIVE DISCHARGE. THIS PLAN HAS BEEN COMMUNICATED TO HARDEEP, THE PHYSICAL THERAPIST AND TO Robert LINOLEUM FLOOR INSTALLER TO CONVEY TO THE REST OF THE TEAM REGARDING DISCHARGE EVALUATIONS, ETC.
[2018-10-05 15:23] VITALS: BP 95/55
--- NOTE | 2018-10-05 15:25 | NUR ---
FAXED REFERRAL TO [facility] SPOKE WITH RAJEEV IN ADM SHE CAN ACCEPT PT AT DC AND THEY HAVE LYMPHEDEMA SPECIALIST TO DO THE LEG WRAPS. DCP TO FOLLOW.
[2018-10-05 19:20] VITALS: BP 108/68
--- NOTE | 2018-10-05 19:37 | NUR ---
ASSUMED CARE OF PT AT 0715. PT IS A&OX4 AND VITAL SIGNS ARE STABLE. ORDERS RECEIVED FOR PT TO BE MOD I IN ROOM. PT EDUCATED ABOUT MOD I ORDERS. PT HAD BOWEL MOVEMENT THIS MORNING WITH VISIBLE BLOOD. ORDERS TO CONSULT WITH GI AND ORDERS ARE FOR PT TO HAVE COLONOSCOPY ON FRIDAY. PT CLEAR LIQUIDS BEGINING WITH BREAKFAST TOMORROW. PT DENIES ABDOMINAL PAIN, NAUSEA, VOMITING, COLORING IS APPROPRIATE. DRESSINGS TO SHINS AND WRAPS BILATERALLY CHANGED BY LYMPHEDEMA THIS SHIFT. NURSING WILL CONTINUE TO MONITOR.
--- NOTE | 2018-10-06 02:24 | NUR ---
assumed care at approx 1900 evening 10/05. pt sitting up in recliner at change of shift. pt now modified independent in his room with walker. pt alert and oriented x4, appropriate and cooperative. pt took hs meds with water tolerating well. pt wearing cpap at present. pt appears to be sleeping soundly with hourly rounding checks. call light in reach. will continue to monitor.
--- NOTE | 2018-10-06 06:31 | HC ---
[facility] [place] [address] CONSULTATION Name: TAYO MENESES Room #: 501-A [facility] IN M.R.#: [id number] Admission: 09/29/18 ������������������ Attend Phys: Chandrakant Zayas MD Discharge: ������������������ Date of : 38 Report #: [id number] THIS REPORT FOR: //name// CC: Chandrakant Dyereusebia Clements DATE OF SERVICE: 10/04/2018 NEUROBEHAVIORAL STATUS EXAMINATION ATTENDING PHYSICIAN: Chandrakant Zayas MD. RAYON WINDER: Fede Hein, PhD CLINICAL PRESENTATION: The patient is an 78-year-old male admitted to the Rehabilitation Unit at [facility] for comprehensive inpatient rehabilitation program to improve functional mobility, activities of daily living and self-care secondary to a fall at his home. The patient carries a diagnosis of idiopathic polyneuropathy with numbness and weakness that involves both lower extremities greater than upper extremities. His assessment on admission to rehab included medical complexity with generalized debility, acute renal insufficiency superimposed on chronic kidney disease, severe hyperkalemia, bilateral lower extremity cellulitis, history of diverticulitis, status post colon resection, atrial fibrillation on Xarelto, normocytic anemia with GI involvement, partial lung collapse in the right middle lobe, deep venous thrombosis and chronic atrial fibrillation. A complete description of his medical condition and history can be found in his medical records. Neuropsychological consultation was requested to provide assistance in the assessment of cognitive and emotional status and to provide recommendations and services. Prior to this most recent medical event, he was living independently with his in their home. He reports having been independent with driving and managing instrumental activities of daily living. He has 4 children. 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 He is a college graduate. He does not report a prior history of treatment for alcohol/drug abuse or mood disorder. The patient did indicate having participated in an assessment for the [facility] Compens[facility] Program, but did not qualify. TECHNIQUES UTILIZED: Clinical interview, review of medical records, staff consultation and behavioral observation, mini mental status exam 2 standard version, clock drawing and verbal fluency assessment (letter and category). EXAMINATION FINDINGS: The patient was alert and cooperative with the assessment. He did not present with aphasia. His thoughts are logical and [facility] [address] [place] [address] CONSULTATION Name: TAYO MENESES Room #: 501-A [facility] IN [facility].#: [id number] Admission: 09/29/18 ������������������ Attend Phys: Chandrakant Zayas MD Discharge: ������������������ Date of : 38 Report #: [id number] goal oriented. He was somewhat suspicious of the assessment and questioned how the report would be used. There is no evidence of thought disorder. He does not report auditory or visual hallucinations. His performance on the MMSE 2 brief version was 13/16, which is a T score of 38 and percentile rank of 12. He was 1/3 for initial registration, 5/5 for orientation to time, 5/[address] and 1/3 for immediate recall with 3 items after a brief time delay and distraction. The patient required multiple repetitions during initial registration. His performance on the MMSE 2 standard version was a raw score of 25/30, which is a T score of 44, which is at the 27th percentile and in the average range. The patient was 4/5 for serial sevens, 2/2 for naming, 1/1 for repetition, 3/3 for auditory comprehension. He could read and follow single command and write a sentence. The patient had difficulty with copying a simple geometric design. Clock drawing was within normal limits for number placement. However, the patient was unable to accurately place the hands of the clock at a designated time. Letter fluency was at the 8th percentile with a raw score of 15, T score of 36, which is in the borderline range. Category fluency was within normal limits with a raw score of 38, T score of 48 and percentile rank of 42. Overall, total fluency was a raw score of 53, T score 38, percentile rank of 12, which is low average. The patient is presenting with deficits in subtests that suggest higher level executive dysfunction. Deficits in letter fluency and inability to place the hands at a correct time suggests variability in attention/concentration and executive functioning. 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 RECOMMENDATIONS: The patient is not reporting subjective difficulty with memory, although he does notice occasional difficulty with word finding, which was identified in letter fluency assessment. He does not report symptoms suggesting anxiety or depression. Mild deficits in cognition are likely associated with medical etiology. He may benefit from assistance in higher level planning and problem solving and aspects of decision making. [address] [address] CONSULTATION Name: TAYO MENESES Room #: 501-A [facility] IN .R.#: [id number] Admission: 09/29/18 ������������������ Attend Phys: Chandrakant Zayas MD Discharge: ������������������ Date of : 38 Report #: [id number] Thank you very much for allowing me to provide the consultation on this patient. ��������������������������������������������� <ELECTRONICALLY SIGNED> ���������������������������������������� By: Fede Hein, PhD ��������������������������������������������� 10/06/18 0631 1621 15 Fede Hein, PhD /nt
[2018-10-06 07:28] VITALS: BP 117/60
--- NOTE | 2018-10-06 11:23 | NUR ---
Nutrition followup: pt continues on rehab unit. Now on clear liquids for colonoscopy prep tomorrow due to some rust colored/heme + stools. Weights trending down 11# in 6 days with diuresis. Still up 18# from reported usual. Prior intake recorded 100% of all meals. Remains low nutrition risk.
--- NOTE | 2018-10-06 11:32 | NUR ---
ASSUMED CARE AT 0700. PATIENT IS ALERT AND ORIENTED X4. PATIENT GARCIA'S, DEGREASING WHEEL OPERATOR ARE EQUAL. LUNGS ARE CLEAR. ABD IS SOFT WITH BSX4. PATIENT IS MOD/I IN ROOM. UP IN CHAIR FOR CLEAR LIQUID BREAKFAST. G.I. PREP TO START AFTER LUNCH. LEGS HAVE LYMPHEDEMA WRAPS IN PLACE. CREAM APPLIED TO FEET/TOES. FALL AND SAFETY PROTOCOLS IN PLACE. C/O PAIN IN HIS LEGS AND BACK. MEDICATED WITH PRN PAIN MED. CONTINUES TO PROGESS TOWARDS D/C GOALS. WILL CONTINUE TO MONITER.
--- NOTE | 2018-10-06 14:06 | NUR ---
team meeting, recommendation: adl and mobility for mod I over 150 ft with fww. dc 13th with hh ( pt, ot, nursing, lymphedema home care) with [facility].
[2018-10-06 14:36] VITALS: BP 95/55
[2018-10-06 19:08] VITALS: BP 110/56
--- NOTE | 2018-10-07 03:39 | NUR ---
ASSUMED CARE FOR PT. @1900 PT ALERT AND OREINTED X4 SITTING UP IN RECLINER AND WATCHING TV. VSS, MIRALAX POWDER GIVEN FOR COLON PREP AND COLONOSCOPY IN THE MORNING. PAIN MEDS GIVEN FOR FOOT PAIN. NPO AT MIDNIGHT. WILL CONTINUE TO MONITOR
[2018-10-07 05:55] LABS: ABSOLUTE NEUTROPHILS 3.9 thou/uL (1.4-8.2); BASOPHILS 1.3 % (0.0-2.0); EOSINOPHILS 2.6 % (0.0-3.0); HEMATOCRIT 32.9 % (42.0-52.0); HEMOGLOBIN 11.2 gm/dL (14.0-18.0); LYMPHOCYTES 16.4 % (24.0-44.0); MCH 31.1 pg (26.0-34.0); MCHC 34.1 g/dL (28.0-37.0); MCV 91.4 fL (80.0-100.0); MONOCYTES 11.8 % (1.0-8.0); PLATELET COUNT 231 thou/uL (150-400); POLYS 67.9 % (36.0-66.0); RDW 15.4 % (10.5-14.5); WBC 5.8 thou/uL (4.0-11.0)
[2018-10-07 06:12] LABS: ALBUMIN 3.3 g/dL (3.4-5.0); CALCIUM 8.8 mg/dL (8.5-10.1); CREATININE 1.8 mg/dL (0.7-1.3); MAGNESIUM 1.5 mg/dL (1.8-2.4); PHOSPHORUS 3.9 mg/dL (2.5-4.9); POTASSIUM 3.6 mmol/L (3.5-5.1)
[2018-10-07 07:15] VITALS: BP 111/65
--- NOTE | 2018-10-07 07:51 | NUR ---
ASSUMED CARE AT 0700. PATIENT IS ALERT AND ORIENTED X4. PATIENT GARCIA'S, COMMUNICATION ENGINEER ARE EQUAL. LUNGS ARE CLEAR. ABD IS SOFT WITH BSX4. PATIENT IS NPO FOR COLONOSCOPY THIS A.M. PATIENT IS MOD/I IN ROOM. FALL AND SAFETY PROTOCOLS IN PLACE. DIDN'T SLEEP WELL. PATIENT HAS LEG WRAPS ON. CONTINUES TO PROGRESS TOWARDS D/C GOALS. WILL CONTINUE TO MONITER.
--- NOTE | 2018-10-07 10:34 | NUR ---
TO G.I. LAB PER CART FOR COLONOSCOPY. FAMILY AT BEDSIDE. WILL CONTINUE TO MONITER WHEN HE RETURNS.
--- NOTE | 2018-10-07 12:48 | NUR ---
PATIENT RETURNED FROM G.I. LAB. VSS, UP IN CHAIR FOR LUNCH. BP LOW, BYSTOLIC HELD. ENCOURAGED PO FLUIDS. PATIENT RESTARTED ON REGULAR DIET. WILL CONTINUE TO MONITER.
[2018-10-07 18:52] VITALS: BP 109/69
[2018-10-07 22:00] VITALS: BP 122/65
--- NOTE | 2018-10-07 23:12 | NUR ---
PT ASSESSMENT COMPLETED AND VSS. MEDS GIVEN ORDERED AND WELL TOLERATED. TITI IN ROOM. STEADY. VOIDING MODERATE AMOUNT OF YELLOW URINE. 0 BM. PRN PAIN AND SLEEP MEDICATION HELPFUL. ALESSIO LOWER LEG WRAPS IN PLACE. CREAM PLACED ON FEET AND TOES ORDERED. SLEEPING. WILL CONTINUE TO MONITOR FREQUENTLY.
[2018-10-08] VITALS (7 sets, daily range): BP systolic 95–103; BP diastolic 55–57
[2018-10-08] MEDS ORDERED: DEMADEX20 MG PO (09:36)
[2018-10-08] MEDS ORDERED: SODIUM BICARBO650 M3 PO (09:36)
--- NOTE | 2018-10-08 12:38 | NUR ---
PT DISCHARGING TODAY TO HOME WITH [facility] FAXED DC ORDERSS/SUMMARY TO [facility] SPOKE WITH KRISTINA IN ADM SHE RECEIVED DC ORDERS AND WILL NOTIFY PT TIME OF VISITS.
--- NOTE | 2018-10-08 14:33 | NUR ---
ASSUMED CARE OF PT AT 0730. PT IS A&OX4 AND VITAL SIGNS ARE STABLE, PT IS MOD I IN ROOM. ORDERS FOR DISCHARGE THIS SHIFT. DISCHARGE EDUCATION GIVEN WITH PRINTED D/C INSTRUCTIONS AND EDUCATION PACKET, CHILDREN PRESENT AT DISCHARGE. INFORMATION GIVEN REGUARDING F/U WITH PROVIDERS, D/C MEDICAITONS, D/C WITH HH, INFORMAITON ABOUT RENAL DISEASE AND DIET (PER FAMILY REQUEST), PT AND FAMILY VERBALIZED UNDERSTANDING OF INFORMATION. PT WAS DISCHARGED FROM FACILITY WITH CHILDREN AND ASSISTED BY VOLUNTEER TRANSPORT TO THE [facility].
--- NOTE | 2018-10-08 19:35 | NUR ---
NO D/C PHOTO TAKEN ON DISCHARGE DUE TO LEGS BEING WRAPPED AND ORDERS TO NOT REMOVE WRAPS BY PROVIDER.
--- NOTE | 2018-10-12 15:26 | PLAN ---
[facility] [place] [address] REHAB UNIT PLAN OF CARE Name: TAYO MENESES Room #: 501-A [facility] IN M.R.#: [id number] Admission: 09/29/18 ������������������ Attend Phys: Chandrakant Zayas MD Discharge: 10/08/18 ������������������ Date of : 38 Report #: [id number] THIS REPORT FOR: //name// CC: Chandrakant Dyereusebia Clements DATE OF SERVICE: 10/02/2018 PROGRESS NOTE/OVERALL PLAN OF CARE SUBJECTIVE: The patient is seen back today in followup. He was in no distress. Temperature 36.7, pulse 78, respirations 16, and blood pressure 118/62. Wound care is continuing to follow regarding his lower extremity edema and vascular ulcers. Occupational therapy is following as well from lymphedema therapy. He is working in physical therapy with transfers, min assist, gait 90 feet contact guard. He did start stairs 8 steps x 2 with min assist. In occupational therapy, lower body dressing is mod assist. ASSESSMENT: 1. Idiopathic polyneuropathy with numbness and weakness involving both lower extremities greater than upper extremities. 2. Medical complexity with generalized debilitation. 3. Acute renal insufficiency superimposed on chronic kidney disease. 4. Bilateral lower extremity edema and venous stasis ulcers. 5. Recent bilateral lower extremity cellulitis. 6. History of diverticulitis, status post colon resection. 7. Atrial fibrillation, on Xarelto. 8. Normocytic anemia with GI involved. 9. Partial lung collapse, right middle lobe. 10. Deep venous thrombosis prophylaxis. 11. Chronic atrial fibrillation. PLAN: The overall plan of care is based on the preadmission screen, post-admission physician evaluation, and information garnered from therapy assessments. 1. Estimated length of stay is probably at least 7-10 days. 2. Medical prognosis is reasonably good. 3. Anticipated interventions includes the interdisciplinary acute inpatient rehabilitation program. 4. Anticipated functional outcomes would be for the patient to become modified independent with transfers, mobility, ADLs, so he can return back to the home setting. 5. Discharge destination would be back home with his . He does have a lot of steps at home and did not utilize the stair glide premorbidly. 6. Expected therapy by discipline includes PT and OT 1-1/2 hours per day each [address] [address] REHAB UNIT PLAN OF CARE Name: TAYO MENESES Room #: 501-A [facility] IN [facility]#: [id number] Admission: 09/29/18 ������������������ Attend Phys: Chandrakant Zayas MD Discharge: 10/08/18 ������������������ Date of : 38 Report #: [id number] five days a week throughout the duration of the acute inpatient rehabilitation stay. ��������������������������������������������� <ELECTRONICALLY SIGNED> ���������������������������������������� By: Chandrakant Zayas MD ��������������������������������������������� 10/12/18 1526 0751 [id number] Chandrakant Zayas MD /nt
--- NOTE | 2018-10-12 15:26 | H ---
[facility] [place] [address] HISTORY AND PHYSICAL Name: TAYO MENESES Room #: 501-A [facility] IN M.R.#: [id number] Admission: 09/29/18 ������������������ Attend Phys: Chandrakant Zayas MD Discharge: 10/08/18 ������������������ Date of : 38 Report #: [id number] THIS REPORT FOR: //name// CC: Chandrakant Garner [facility] DATE OF SERVICE: 09/30/2018 HISTORY AND PHYSICAL/POSTADMISSION PHYSICIAN EVALUATION HISTORY OF PRESENT ILLNESS: This is an 78-year-old male previously known to me, admitted with significant weakness originally on 09/26/2018. He had hypotension. He has had a couple of falls including a fall a couple of weeks ago. He was having difficulty trying to get up steps. He has bilateral lower extremity numbness and weakness as well as bilateral hand numbness with his premorbid idiopathic peripheral neuropathy. He is noted to have acute renal insufficiency superimposed on chronic kidney disease and initially had a severe increase in potassium at 7.3. He had elevated BUN and creatinine. He has shown some improvement with his potassium dropping down to 5.7 and most recently 5.3. He was diagnosed with bilateral lower extremity cellulitis. He has lower extremity wounds and was on Bactrim. Infectious Disease has been involved as well as wound care. He was treated for chronic atrial fibrillation. He is noted to have venous stasis dermatitis, cellulitis, and vascular ulcers. He also was noted to have a right lower lobe collapse. He has multiple medical comorbidities and has his idiopathic peripheral neuropathy and has had a significant decline from his premorbid functional level. He has been admitted for acute in-hospital inpatient rehabilitation. PAST MEDICAL HISTORY: Includes a prior right posterior frontal lobe CVA back in 2017. He has a history of hypertension, hyperlipidemia, peripheral vascular disease, and degenerative arthritis. He has the idiopathic neuropathy, unknown etiology for which he has had approximately the last 7 years. He has history of diverticulitis, chronic edema of the lower extremities for which he utilizes bilateral lower extremity pumps and has a history of obstructive sleep apnea. 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 HABITS: Past history of tobacco abuse noted to chew tobacco. No history of alcohol abuse. MEDICATIONS: Please see the full medication listing. This includes vitamins, herbals, and supplements per report. SOCIAL HISTORY: Lives in a house with his , [address], [address] [place] [address] HISTORY AND PHYSICAL Name: TAYO MENESES Room #: 501-A [facility] IN ..#: [id number] Admission: 09/29/18 ������������������ Attend Phys: Chandrakant Zayas MD Discharge: 10/08/18 ������������������ Date of : 38 Report #: [id number] hand rails. There are 13 steps inside with a stair glide. He did not utilize a stair glide, but his does. They do have kids and grandkids that assist. He was getting out in the community, short shopping trips, etc. Utilized a cane. He was still driving. He is a retired [employer]. REVIEW OF SYSTEMS: Currently complains of chest pain, shortness of breath, abdominal discomfort. He has the numbness of his hands and lower extremities. He has complaints of generalized weakness. He has the chronic significant joint problems with multiple joint replacements. PHYSICAL EXAMINATION: GENERAL: He is a pleasant 78-year-old white male in no obvious distress. VITAL SIGNS: Temperature 97.6, pulse 74, respirations 20, blood pressure 111/64. 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 He is a good historian. CHEST: Sounded clear to auscultation except for some diffuse decreased breath sounds. CARDIOVASCULAR: Regular rate and rhythm. ABDOMEN: Bowel sounds positive, nontender. GENITOURINARY AND RECTAL: Deferred. EXTREMITIES: He has significant degenerative arthritis of his hands and has decreased range of motion of both shoulders with his prior total shoulder replacements. Upper body strength is a grade 4-/5. He has decreased distal sensation. His lower extremities, he does have wrappings. He has had prior total joint replacements. He has marked decreased proprioception bilateral large toes with decreased sensation in a stocking distribution. Lower extremity strength is grade 4-/5. Tone appears to be intact. He has been mod assist coming to stand. He has done some short distance front-wheeled walker ambulation. ASSESSMENT: An 78-year-old white male with the following problems: 1. Idiopathic polyneuropathy with numbness and weakness involving both lower extremities greater than upper extremities. 2. Medical complexity with generalized debilitation. 3. Acute renal insufficiency superimposed on chronic kidney disease. He had initial severe hyperkalemia. 4. Bilateral lower extremity cellulitis. 5. History of diverticulitis, status post colon resection. 6. Atrial fibrillation, on Xarelto. 7. Normocytic anemia with GI involved. 8. Partial lung collapse, right middle lobe. 9. Deep venous thrombosis prophylaxis. 10. Chronic atrial fibrillation. PLAN: The patient is admitted for acute in-hospital inpatient rehabilitation. [facility] [address] [place] [address] HISTORY AND PHYSICAL Name: TAYO MENESES Room #: 501-A [facility] IN [facility]#: [id number] Admission: 09/29/18 ������������������ Attend Phys: Chandrakant Zayas MD Discharge: 10/08/18 ������������������ Date of : 38 Report #: [id number] From a postadmission physician evaluation perspective, there are no relevant changes since the preadmission screening. Please see the above review of prior and current medical and functional conditions and comorbidities. Please see the patient's previous and current functional status. As far as risk of complications, the patient has multiple medical comorbidities as noted above. Initial plan of care involves the interdisciplinary acute inpatient rehabilitation program with goal of maximizing his functional independence, so he can hopefully return back to his prior living situation. Measurable functional goals would be for the patient to become modified independent with transfers, mobility, ADLs improvement in overall mobility and independence with ADLs, so he can return back to the home setting. Prognosis is reasonably good. Estimated length of stay is probably at least 1-2 weeks pending progress. Potential barriers would include his multiple medical comorbidities and decreased functional status. The patient meets diagnostic criteria for an acute in-hospital inpatient rehabilitation stay. He meets the medical necessity criteria and we will have the multiple immigration consultant physicians continue to follow. He does have the tolerance for therapies and has appropriate discharge goals back to the home setting. ��������������������������������������������� <ELECTRONICALLY SIGNED> ���������������������������������������� By: Chandrakant Zayas MD ��������������������������������������������� 10/12/18 1526 0906 Donna Zayas MD /heladio
== END 2018-10-08 13:45 | disposition home health service (06) | DRG 74 ==
LOC: ENTRNSPT 10-08 13:32 → EDTRNSPTSTS 10-08 13:39
PROVIDERS: Internal Medicine Nephrology; Nurse Practitioner; ADMIT Physical Medicine & Rehabilitation
PROC: 0DJD8ZZ Inspection of Lower Intestinal Tract, Via Natural or Artificial Opening Endoscopic (ICD-10-PCS; principal; 2018-10-07)
DX: G60.8 Other hereditary and idiopathic neuropathies (principal); L03.116 Cellulitis of left lower limb; L03.115 Cellulitis of right lower limb; J98.19 Other pulmonary collapse; N17.9 Acute kidney failure, unspecified; E44.1 Mild protein-calorie malnutrition; L97.819 Non-pressure chronic ulcer of other part of right lower leg with unspecified severity; L97.829 Non-pressure chronic ulcer of other part of left lower leg with unspecified severity; R53.81 Other malaise; D64.9 Anemia, unspecified; I48.2 Chronic atrial fibrillation; N18.3 Chronic kidney disease, stage 3 (moderate); I89.0 Lymphedema, not elsewhere classified; R19.7 Diarrhea, unspecified; I12.9 Hypertensive chronic kidney disease with stage 1 through stage 4 chronic kidney disease, or unspecified chronic kidney disease; I73.9 Peripheral vascular disease, unspecified; E87.5 Hyperkalemia; E78.5 Hyperlipidemia, unspecified; M19.90 Unspecified osteoarthritis, unspecified site; K64.9 Unspecified hemorrhoids; G47.33 Obstructive sleep apnea (adult) (pediatric); Z86.73 Personal history of transient ischemic attack (TIA), and cerebral infarction without residual deficits; Z91.048 Other nonmedicinal substance allergy status; Z79.01 Long term (current) use of anticoagulants; Z87.891 Personal history of nicotine dependence; Z68.31 Body mass index [BMI] 31.0-31.9, adult; Z86.010 Personal history of colon polyps
CPT/HCPCS: 10112; 62110; 62900; 70005

== ENCOUNTER 2018-10-12 12:26 | Emergency (ER) | payer OTHER ==
[~2018-10-12] VITALS: Ht 185.4 cm; Wt 99.8 kg
[2018-10-12 13:30] LABS: ABSOLUTE NEUTROPHILS 7.9 thou/uL (1.4-8.2); BASOPHILS 0.6 % (0.0-2.0); EOSINOPHILS 0.8 % (0.0-3.0); HEMATOCRIT 33.5 % (42.0-52.0); HEMOGLOBIN 11.4 gm/dL (14.0-18.0); LYMPHOCYTES 6.2 % (24.0-44.0); MCH 31.6 pg (26.0-34.0); MCHC 34.2 g/dL (28.0-37.0); MCV 92.3 fL (80.0-100.0); MONOCYTES 8.7 % (1.0-8.0); PLATELET COUNT 230 thou/uL (150-400); POLYS 83.7 % (36.0-66.0); RBC 3.63 mil/uL (4.50-6.00); RDW 15.5 % (10.5-14.5); WBC 9.4 thou/uL (4.0-11.0)
[2018-10-12 13:38] LABS: CALCIUM 9.1 mg/dL (8.5-10.1); CREATININE 2.5 mg/dL (0.7-1.3); POTASSIUM 4.2 mmol/L (3.5-5.1)
[2018-10-12 14:56] LABS: CREATININE 2.5 mg/dL (0.7-1.3); POTASSIUM 4.4 mmol/L (3.5-5.1)
[2018-10-12 15:27] VITALS: BP 129/76
== END 2018-10-12 15:20 | disposition home or self-care (01) ==
LOC: ER 12:26
PROVIDERS: Emergency Medicine
DX: N17.9 Acute kidney failure, unspecified (principal); K56.41 Fecal impaction; I48.91 Unspecified atrial fibrillation; I12.9 Hypertensive chronic kidney disease with stage 1 through stage 4 chronic kidney disease, or unspecified chronic kidney disease; N18.3 Chronic kidney disease, stage 3 (moderate); G47.30 Sleep apnea, unspecified; I73.9 Peripheral vascular disease, unspecified; M19.90 Unspecified osteoarthritis, unspecified site; G60.9 Hereditary and idiopathic neuropathy, unspecified; Z90.49 Acquired absence of other specified parts of digestive tract; Z79.899 Other long term (current) drug therapy; Z86.73 Personal history of transient ischemic attack (TIA), and cerebral infarction without residual deficits; Z96.643 Presence of artificial hip joint, bilateral; Z96.611 Presence of right artificial shoulder joint; Z96.612 Presence of left artificial shoulder joint

== ENCOUNTER 2018-10-12 20:35 | Inpatient (IN) | payer OTHER ==
[~2018-10-12] VITALS: Ht 185.4 cm; Wt 100.2 kg
[2018-10-13 01:32] LABS: ABSOLUTE NEUTROPHILS 10.2 thou/uL (1.4-8.2); BASOPHILS 0.6 % (0.0-2.0); EOSINOPHILS 0.1 % (0.0-3.0); HEMATOCRIT 36.8 % (42.0-52.0); HEMOGLOBIN 12.4 gm/dL (14.0-18.0); LYMPHOCYTES 5.1 % (24.0-44.0); MCHC 33.6 g/dL (28.0-37.0); MCV 92.3 fL (80.0-100.0); MONOCYTES 7.2 % (1.0-8.0); PLATELET COUNT 249 thou/uL (150-400); RBC 3.99 mil/uL (4.50-6.00); RDW 15.2 % (10.5-14.5); WBC 11.7 thou/uL (4.0-11.0)
[2018-10-13 01:37] LABS: CALCIUM 9.1 mg/dL (8.5-10.1); CREATININE 2.9 mg/dL (0.7-1.3); POTASSIUM 4.2 mmol/L (3.5-5.1)
[2018-10-13 01:43] LABS: ALBUMIN 4.1 g/dL (3.4-5.0); TOTAL BILIRUBIN 1.4 mg/dL (<0.1-1.0); TOTAL PROTEIN 7.9 g/dL (6.4-8.2)
[2018-10-13 08:08] VITALS: BP 119/57
[2018-10-13 08:20] VITALS: BP 103/49; BP 119/57
[2018-10-13 08:44] VITALS: BP 97/61
--- NOTE | 2018-10-13 10:33 | NUR ---
78 YO MALE ADMITTED TO 417 BY CART FROM ED. A&OX4, IV INTACT IN R AC, AMBULATES WITH STAND BY ASSIST. DURHAM TO DD URINE IS CLOUDY WITH SOME SEDIMENT. DENIES PAIN AT THIS TIME. BILAT LOWER EXTREMITIES WITH LYMPHODEMA. ASSESSMENT COMPLETE, CONSULTS CALLED IN FOR WOUND CARE AND NEPHROLOGY FOR GER. PT ORIENTED TO ROOM, CALL LIGHT IS W/I REACH.
--- NOTE | 2018-10-13 13:13 | NUR ---
WOUND CONSULT; ROUNDING WITH DR HANSEN AND CHRIS. THIS IS A WELL KNOW PT TO US. THE LEFT LE BEING MANGED WITH LYMPHEDEMA WRAPS. THE LEFT LE WOUND IS MORE SIGNIFICANT THAN THE RIGHT. BOTH WOUNDS HAVE NO VISUAL S/S OF INFECTION. RECOMMENDATIONS; CONT. LYMPHEDEMA MANGEMENT AND BOARDERED FOAM DRESSINGS TO THE WOUNDS. DISCUSSED WITH JAYA
--- NOTE | 2018-10-13 13:53 | NUR ---
ASSESSMENT: CM REVIEWED CHART AND MET WITH PT AND HIS SON AT THE BEDSIDE. PT WAS ADMITTED WITH URINARY RETENTION. PT WAS JUST DISCHARGED FROM LAST WEEK AND WENT HOME WITH [facility]. PT LIVES IN A HOUSE WITH HIS . PT REPORTS HE HAS ABOUT 2 STEPS WITH HANDRAILS TO ENTER THE HOME. PT REPORTS ONCE INSIDE HE HAS ABOUT 13 STEPS WITH HANDRAILS TO HIS UPPER LEVEL IN THE HOME. PT REPORTS USING A WALKER AND CANE AT HOME WELL A CPAP. PT REPORTS HE IS STILL IN SERVICES WITH [facility]. CM CONTACTED [facility] TO NOTIFY THEM AND FAXED CLINICAL. PT PLANS ON RETURNING HOME WITH [facility] ONCE MEDICALLY STABLE. PT REPORTS HIS FAMILY IS VERY SUPPORTIVE. CM WILL CONTINUE TO FOLLOW TO ASSIST NEEDED.
[2018-10-13 15:20] LABS: URINE BILIRUBIN NEGATIVE (Negative); URINE BLOOD 3+ (Negative); URINE CLARITY SL CLOUDY; URINE COLOR YELLOW; URINE GLUCOSE-RANDOM* NEGATIVE (Negative); URINE KETONES NEGATIVE (Negative); URINE LEUKOCYTES-REFLEX 1+ (Negative); URINE NITRITE-REFLEX NEGATIVE (Negative); URINE PROTEIN (DIPSTICK) 1+ (Negative); URINE UROBILINOGEN 0.2 E.U./dl (0.2-1.0)
[2018-10-13 15:36] LABS: BACTERIA-REFLEX >30 Many /HPF (None Seen); SQUAMOUS None Seen /LPF (0-3); URINE RBC >20 Many /HPF (0-2); URINE WBC-REFLEX 6-15 Few /HPF (0-5)
[2018-10-13 15:37] LABS: CASTS None Seen /LPF (None Seen); CRYSTALS None Seen /LPF (None Seen)
[2018-10-13 16:20] VITALS: BP 103/45
[2018-10-13 20:42] VITALS: BP 99/54
--- NOTE | 2018-10-14 01:07 | NUR ---
PT UNABLE TO SLEEP DESPITE TAKING MELATONIN ALREADY, TEXT PAGED ARABELLA.
[2018-10-14 04:52] VITALS: BP 92/52
[2018-10-14 05:45] LABS: HEMATOCRIT 31.3 % (42.0-52.0); HEMOGLOBIN 10.5 gm/dL (14.0-18.0); MCHC 33.5 g/dL (28.0-37.0); MCV 92.5 fL (80.0-100.0); RBC 3.39 mil/uL (4.50-6.00); RDW 15.1 % (10.5-14.5); WBC 8.8 thou/uL (4.0-11.0)
[2018-10-14 06:00] LABS: ALBUMIN 2.6 g/dL (3.4-5.0); CALCIUM 8.3 mg/dL (8.5-10.1); CREATININE 2.5 mg/dL (0.7-1.3); PHOSPHORUS 4.2 mg/dL (2.5-4.9); POTASSIUM 4.3 mmol/L (3.5-5.1); TOTAL BILIRUBIN 1.1 mg/dL (<0.1-1.0); TOTAL PROTEIN 5.8 g/dL (6.4-8.2)
[2018-10-14 08:00] VITALS: BP 110/58
--- NOTE | 2018-10-14 08:49 | HC ---
[facility] [place] [address] CONSULTATION Name: TAYO MENESES Room #: 417-I ADM IN M.R.#: [id number] Admission: 10/13/18 ������������������ Attend Phys: Krzysztof Jama DO Discharge: ������������������ Date of : 38 Report #: [id number] THIS REPORT FOR: //name// CC: Pascual Jama DATE OF SERVICE: 10/13/2018 CHIEF COMPLAINT: Ulcerations to the pretibial region bilaterally. HISTORY OF PRESENT ILLNESS: This is an 78-year-old male patient with whom I am familiar from recent hospitalization who was discharged from the [facility]'s rehab unit last week. Since that time, he has not been able to have a bowel movement and he returned to the ER yesterday morning with severe abdominal pain. He underwent manual disimpaction and enema. He improved and was discharged home; however, returned to the ER, was noted to have a distended bladder and elevated renal function. A Hagan was placed in the ER. He has had persistent ulcers on both legs and I have been asked to see him with regard to wound care. The patient states he is feeling much more comfortable at this time. PAST MEDICAL HISTORY: Positive for hypertension, high cholesterol, bilateral total shoulder replacements, bilateral rotator cuff repairs, lumbar laminectomy, sleep apnea, right knee surgery x 3, colon resection for diverticulitis. He is blind in his left eye. History of peripheral vascular disease, diverticulitis, chronic lower extremity lymphedema, previous appendectomy, idiopathic neuropathy, chronic kidney disease stage 3, TIA, atrial fibrillation. SOCIAL HISTORY: Negative for alcohol use. He currently smokes daily. FAMILY HISTORY: Noncontributory. REVIEW OF SYSTEMS: CONSTITUTIONAL: The patient denies fever, chills or weight loss. NEUROLOGICAL: The patient denies focal weakness, numbness or tingling. EYES: The patient denies any new visual changes. He has blindness in his left eye. ENT: The patient denies earache, nasal drainage, sore throat. CARDIOVASCULAR: The patient denies chest pain, palpitations or diaphoresis. PULMONARY: The patient denies cough or shortness of breath. GASTROINTESTINAL: The patient does complain of some abdominal discomfort, which is now resolved having had a Hagan catheter placed. ORTHOPEDIC: The patient does note the ulcerations on bilateral lower extremities with both lower extremity swelling. Denies pain at this time. Other systems in a 14-point review of systems are negative. [facility] [address] [id number] CONSULTATION Name: TAYO MENESES Room #: 417-I ADM IN [facility].#: [id number] Admission: 10/13/18 ������������������ Attend Phys: Krzysztof Jama DO Discharge: ������������������ Date of : 38 Report #: [id number] PHYSICAL EXAMINATION: VITAL SIGNS: At this time include temperature 36.8, pulse 86, respiratory rate 20, blood pressure 103/45. GENERAL: This is a chronically ill-appearing male patient who appears to be in minimal distress. HEENT: Head normocephalic. Nose and throat are clear. NECK: Supple. LUNGS: Clear. HEART: Regular. ABDOMEN: Soft. Bowel sounds present. EXTREMITIES: Examination of the lower extremities demonstrate ulcerations to both pretibial regions, left greater than right. They are both improved mostly clean, healthy, granulating, do not show sign of infection. He has 2+ edema to his both lower extremities. NEUROLOGIC: The patient is alert, does move all 4 extremities. LABORATORY DATA: Include sodium 135, potassium 4.2, chloride 96, CO2 of 27, BUN 65, creatinine 2.9, glucose 128, calcium is 9.1, total bilirubin 1.4, alkaline phosphatase 129, total protein 7.9, albumin 4.1. White blood cell count 11.7, hemoglobin 12.4, hematocrit 36.8. CLINICAL IMPRESSION: 1. Venous type ulcerations to both lower extremities, left greater than right. 2. Bilateral lower extremity lymphedema. 3. Hypertension. 4. Chronic atrial fibrillation. 5. Idiopathic neuropathy. 6. Chronic kidney disease stage 3. 7. History of transient ischemic attack. 8. Generalized weakness. 9. Mild protein-calorie malnutrition. RECOMMENDATIONS: We will recommend bordered foam to the open ulcers and then lymphedema wraps three times per week. It is okay to leave his feet excluded. He has done well with this in the past. We will recommend elevation of the lower extremities, continuation of current medications, and PT, OT as able. I appreciate being asked to see the patient in consultation. ��������������������������������������������� <ELECTRONICALLY SIGNED> ���������������������������������������� By: Zach Mcmillan MD ��������������������������������������������� 10/14/18 0849 [id number] Zach Mcmillan MD /nt
--- NOTE | 2018-10-14 10:58 | NUR ---
PT A&OX4, IV INTACT INFUSING FLUIDS W/O COMPS, AMBULATES WITH STAND BY ASSIST AND GAIT BELT. DURHAM TO DD. OT WAS IN TO BLE LYMPHDEMA WRAPS AND WILL BE BACK FRIDAY. DENIES ANY PAIN. PT SITTING IN CHAIR NOW CALL LIGHT W/I REACH.
[2018-10-14] MEDS ORDERED: FLOMAX0.4 MG PO ×2 (14:01)
[2018-10-14 14:36] VITALS: BP 110/58
--- NOTE | 2018-10-14 15:15 | NUR ---
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 THE WOUND WAS NOT VISUALIZED TODAY DUE TO LYPHEDEMA WRAPS REAPPLIED TODAY. PT IS WORKING WITH PT AMBULATING. HIS STRENGTH IS INCREASING. CONTINUE CURRENT PLAN OF CARE DISCUSSED WITH RN
--- NOTE | 2018-10-14 15:25 | NUR ---
PT DISCHARGING TODAY TO HOME WITH [facility]. FAXED DC ORDERS/SUMMARY TO [facility] SPOKE WITH KRISTINA IN ADM SHE RECEIVED DC ORDERS AND WILL RESUME CARE TOMORROW AND WILL NOTIFY PT TIME OF VISITS.
[2018-10-14 16:09] VITALS: BP 110/58
--- NOTE | 2018-10-14 16:46 | NUR ---
DC ORDERS RECEIVED.IV REMOVED FROM R AC, DC INSTRUCTIONS, SCRIPT AND F/U APPOINTMENT REVIEWED WITH PT. VOLUNTEER WHEELED PT TO MAIN ENTRANCE.
--- NOTE | 2018-10-15 10:08 | HC ---
[facility] [place] [address] CONSULTATION Name: TAYO MENESES Room #: 417-I [facility] IN M.R.#: [id number] Admission: 10/13/18 ������������������ Attend Phys: Krzysztof Jama DO Discharge: 10/14/18 ������������������ Date of : 36 Report #: [id number] THIS REPORT FOR: //name// CC: Pascual Tyreeshivani Jama DATE OF SERVICE: 10/13/2018 NEPHROLOGY CONSULTATION ATTENDING PHYSICIAN: Dr. Jama. REASON FOR CONSULTATION: Urinary retention. HISTORY OF PRESENT ILLNESS: The patient is well known to our service with underlying diabetic nephropathy and a baseline creatinine of about 2. He was recently hospitalized at this hospital with hyperkalemia related to losartan, spironolactone, Bystolic and Bactrim. He has a previous history of CVA and peripheral neuropathy and was debilitated. He underwent a rehabilitation stay and improved nicely. During the hospitalization, he did not have an indwelling catheter. His creatinine fell to 1.8 by the time of discharge 1 week ago. After going home, he became constipated and developed urinary retention. Creatinine bonifacio to 2.9. He was readmitted with urinary retention, enlarged bladder and bilateral hydroureteronephrosis. PAST MEDICAL HISTORY: He has longstanding hypertension as well as diabetes, previous CVA. He has chronic atrial fibrillation with peripheral neuropathy. PAST SURGICAL HISTORY: Includes joint surgeries, appendectomy, partial colon resection for diverticular disease. MEDICATIONS: At the time of admission included Lipitor 40 mg daily, vitamin D, vitamin B12, gabapentin 300 mg b.i.d., Bystolic 5 mg daily, Xarelto 15 mg daily, torsemide 20 mg daily, tramadol. FAMILY HISTORY: Please see old charts. 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 Chews tobacco. REVIEW OF SYSTEMS: GENERAL: He has been feeling poorly since he went home. He has had constipation. SKIN: He has got sores on his anterior shins and complicated by chronic brawny lower extremity edema. SKELETAL: Well developed, well nourished. [facility] [address] [place] [address] CONSULTATION Name: TAYO MENESES Room #: 417-I [facility] IN M.R.#: [id number] Admission: 10/13/18 ������������������ Attend Phys: Krzysztof Jama DO Discharge: 10/14/18 ������������������ Date of : 38 Report #: [id number] HEENT: Extraocular movements are full, blind in the left eye, reasonably good sight in the right. No scleral icterus. Hearing and vision are otherwise intact. Mucous membranes are moist. NECK: Supple. CHEST: Clear to auscultation. HEART: Regular. ABDOMEN: Soft, nontender. EXTREMITIES: Show trace brawny edema and dressings over sores on his anterior shins bilaterally. NEUROLOGIC: Grossly intact. LABORATORY DATA: The creatinine was 2.9, potassium was 4.2. Hemoglobin 12.4. ASSESSMENT: 1. Urinary retention. He has urinary retention with hydroureteronephrosis, presumably secondary to prostatic hypertrophy. Flomax will be initiated. We will try to get the Hagan catheter. I will give him some IV fluids for completeness. 2. History of peripheral neuropathy. 3. History of hypertension. 4. Chronic kidney disease. 5. Leg wounds. 6. History of cerebrovascular accident. ��������������������������������������������� <ELECTRONICALLY SIGNED> ���������������������������������������� By: Pascual Powers MD ��������������������������������������������� 10/15/18 1008 1126 1835 Pascual Powers MD /nt
== END 2018-10-14 17:01 | disposition home health service (06) | DRG 683 ==
LOC: ER 20:35 → 4E 10-13 04:48 → EROBS 10-13 04:48 → 4E 10-13 08:20 → ENTRNSPT 10-14 16:47 → 4E 10-14 17:01
PROVIDERS: Emergency Medicine; Nurse Practitioner Family; ADMIT Internal Medicine Geriatric Medicine
DX: N17.9 Acute kidney failure, unspecified (principal); L97.929 Non-pressure chronic ulcer of unspecified part of left lower leg with unspecified severity; L97.919 Non-pressure chronic ulcer of unspecified part of right lower leg with unspecified severity; E44.1 Mild protein-calorie malnutrition; N40.1 Benign prostatic hyperplasia with lower urinary tract symptoms; N13.30 Unspecified hydronephrosis; R33.9 Retention of urine, unspecified; E78.00 Pure hypercholesterolemia, unspecified; Z96.612 Presence of left artificial shoulder joint; Z96.611 Presence of right artificial shoulder joint; Z96.651 Presence of right artificial knee joint; Z96.643 Presence of artificial hip joint, bilateral; I48.91 Unspecified atrial fibrillation; I12.9 Hypertensive chronic kidney disease with stage 1 through stage 4 chronic kidney disease, or unspecified chronic kidney disease; E11.22 Type 2 diabetes mellitus with diabetic chronic kidney disease; E11.42 Type 2 diabetes mellitus with diabetic polyneuropathy; F17.220 Nicotine dependence, chewing tobacco, uncomplicated; I89.0 Lymphedema, not elsewhere classified; E11.622 Type 2 diabetes mellitus with other skin ulcer; N18.3 Chronic kidney disease, stage 3 (moderate); I48.2 Chronic atrial fibrillation; E83.42 Hypomagnesemia; K56.41 Fecal impaction; R31.9 Hematuria, unspecified; R33.8 Other retention of urine; Z90.49 Acquired absence of other specified parts of digestive tract; Z98.42 Cataract extraction status, left eye; Z98.41 Cataract extraction status, right eye; Z86.73 Personal history of transient ischemic attack (TIA), and cerebral infarction without residual deficits; Z79.4 Long term (current) use of insulin; Z79.899 Other long term (current) drug therapy; Z91.048 Other nonmedicinal substance allergy status; Z68.29 Body mass index [BMI] 29.0-29.9, adult
CPT/HCPCS: 10084

== ENCOUNTER 2018-10-16 15:49 | Emergency (ER) | payer OTHER ==
[~2018-10-16] VITALS: Ht 182.9 cm; Wt 81.7 kg
[~2018-10-16 15:49] MED LIST changes: +FLOMAX0.4 MG PO
[2018-10-16 17:26] LABS: ABSOLUTE NEUTROPHILS 10.2 thou/uL (1.4-8.2); BASOPHILS 0.3 % (0.0-2.0); EOSINOPHILS 0.2 % (0.0-3.0); HEMATOCRIT 31.7 % (42.0-52.0); HEMOGLOBIN 10.6 gm/dL (14.0-18.0); LYMPHOCYTES 4.8 % (24.0-44.0); MCH 30.9 pg (26.0-34.0); MCHC 33.3 g/dL (28.0-37.0); MCV 92.9 fL (80.0-100.0); MONOCYTES 10.9 % (1.0-8.0); PLATELET COUNT 196 thou/uL (150-400); POLYS 83.8 % (36.0-66.0); RBC 3.42 mil/uL (4.50-6.00); RDW 15.1 % (10.5-14.5); WBC 12.1 thou/uL (4.0-11.0)
[2018-10-16 17:30] LABS: CALCIUM 8.5 mg/dL (8.5-10.1); CREATININE 2.6 mg/dL (0.7-1.3); POTASSIUM 4.4 mmol/L (3.5-5.1)
[2018-10-16] MEDS ORDERED: NORCO 5-325 TA1 EAC1 PO (21:18)
[2018-10-16 22:01] VITALS: BP 112/72
== END 2018-10-16 22:05 | disposition home or self-care (01) ==
LOC: ER 15:49
PROVIDERS: Emergency Medicine
DX: S91.115A Laceration without foreign body of left lesser toe(s) without damage to nail, initial encounter (principal); I95.1 Orthostatic hypotension; T50.905A Adverse effect of unspecified drugs, medicaments and biological substances, initial encounter; I12.9 Hypertensive chronic kidney disease with stage 1 through stage 4 chronic kidney disease, or unspecified chronic kidney disease; E11.22 Type 2 diabetes mellitus with diabetic chronic kidney disease; N18.3 Chronic kidney disease, stage 3 (moderate); I48.91 Unspecified atrial fibrillation; E78.00 Pure hypercholesterolemia, unspecified; Z96.612 Presence of left artificial shoulder joint; Z96.611 Presence of right artificial shoulder joint; F17.200 Nicotine dependence, unspecified, uncomplicated; Z91.09 Other allergy status, other than to drugs and biological substances; W18.11XA Fall from or off toilet without subsequent striking against object, initial encounter; Y93.89 Activity, other specified; Y92.89 Other specified places as the place of occurrence of the external cause; Y99.8 Other external cause status

== ENCOUNTER → 2018-11-09 | Outpatient (CLI) | payer OTHER ==
[~2018-11-09] MED LIST changes: +NORCO 5-325 TA1 EAC1 PO
== END ==
LOC: HYPER 06:34
DX: T81.89XA Other complications of procedures, not elsewhere classified, initial encounter (principal); L89.311 Pressure ulcer of right buttock, stage 1; I87.021 Postthrombotic syndrome with inflammation of right lower extremity; I48.91 Unspecified atrial fibrillation; I25.10 Atherosclerotic heart disease of native coronary artery without angina pectoris; I12.9 Hypertensive chronic kidney disease with stage 1 through stage 4 chronic kidney disease, or unspecified chronic kidney disease; N18.9 Chronic kidney disease, unspecified; M86.8X8 Other osteomyelitis, other site; E78.00 Pure hypercholesterolemia, unspecified; I25.2 Old myocardial infarction; M19.90 Unspecified osteoarthritis, unspecified site; R60.0 Localized edema; F32.9 Major depressive disorder, single episode, unspecified; Z96.612 Presence of left artificial shoulder joint; Z96.611 Presence of right artificial shoulder joint; Z86.73 Personal history of transient ischemic attack (TIA), and cerebral infarction without residual deficits; Z87.891 Personal history of nicotine dependence; Y92.89 Other specified places as the place of occurrence of the external cause; Y83.8 Other surgical procedures as the cause of abnormal reaction of the patient, or of later complication, without mention of misadventure at the time of the procedure

== ENCOUNTER → 2018-12-01 | Outpatient (CLI) | payer OTHER | LOC: HYPER 06:46 | DX: T81.89XD Other complications of procedures, not elsewhere classified, subsequent encounter (principal); L89.311 Pressure ulcer of right buttock, stage 1; I87.021 Postthrombotic syndrome with inflammation of right lower extremity; I12.9 Hypertensive chronic kidney disease with stage 1 through stage 4 chronic kidney disease, or unspecified chronic kidney disease; N18.9 Chronic kidney disease, unspecified; M86.8X8 Other osteomyelitis, other site; I48.1 Persistent atrial fibrillation; I25.10 Atherosclerotic heart disease of native coronary artery without angina pectoris; E78.00 Pure hypercholesterolemia, unspecified; I25.2 Old myocardial infarction; M19.90 Unspecified osteoarthritis, unspecified site; R60.0 Localized edema; F32.9 Major depressive disorder, single episode, unspecified; Z96.612 Presence of left artificial shoulder joint; Z86.73 Personal history of transient ischemic attack (TIA), and cerebral infarction without residual deficits; Z96.611 Presence of right artificial shoulder joint; Z87.891 Personal history of nicotine dependence; Y83.8 Other surgical procedures as the cause of abnormal reaction of the patient, or of later complication, without mention of misadventure at the time of the procedure ==

== ENCOUNTER 2019-01-05 07:50 | Emergency (ER) | payer OTHER ==
[~2019-01-05] VITALS: Ht 185.4 cm; Wt 95.3 kg
[2019-01-05 08:05] LABS: HEMATOCRIT 32.1 % (42.0-52.0); HEMOGLOBIN 10.7 gm/dL (14.0-18.0); MCH 30.6 pg (26.0-34.0); MCHC 33.4 g/dL (28.0-37.0); MCV 91.5 fL (80.0-100.0); PLATELET COUNT 187 thou/uL (150-400); RBC 3.51 mil/uL (4.50-6.00); RDW 14.9 % (10.5-14.5); WBC 7.3 thou/uL (4.0-11.0)
[2019-01-05 08:11] LABS: CALCIUM 9.2 mg/dL (8.5-10.1); CREATININE 2.5 mg/dL (0.7-1.3)
[2019-01-05 08:17] LABS: ALBUMIN 3.4 g/dL (3.4-5.0); TOTAL BILIRUBIN 1.1 mg/dL (<0.1-1.0); TOTAL PROTEIN 7.3 g/dL (6.4-8.2)
[2019-01-05 08:18] LABS: INR 1.3; PROTIME 13.6 Seconds (9.3-11.4)
--- NOTE | 2019-01-05 08:39 | EKG ---
[address] [place] [address] ELECTROCARDIOGRAM REPORT Name: EDMONDJOSEFeliceTAYO Room #: PRE [facility].#: [id number] ������������������ Admission: ������������������ Attend Phys: Discharge: ������������������ Date of : 38 Report #: [id number] ����������������������������������������������������������������� [id number] THIS REPORT FOR: //name// [facility] ED Test Date: 2019-01-05 Test Time: 07:54:49 Pat Name: TAYO MENESES Department: Room: Gender: M Physician: : 1940 Requested By: Shawn Gaines Order Number: [id number] MD: Eusebio Smallwood Measurements Intervals [place] Rate: 85 P: [place]: QRS: 20 QRSD: 111 T: 44 QT: 404 QTc: 481 Interpretive Statements Atrial fibrillation Nonspecific ST segment abnormality Borderline prolonged QT interval Compared to ECG 09/26/2018 21:46:10 No significant change was found Electronically Signed On 01-05-2019 8:39:31 CDT by Eusebio Smallwood [email or web address] ��������������������������������������������� <ELECTRONICALLY SIGNED> ���������������������������������������� By: Eusebio Smallwood MD, [facility] ��������������������������������������������� 01/05/19 0839 0754 0754 Eusebio Smallwood MD, FACC /EPI
[2019-01-05 08:44] LABS: ABSOLUTE NEUTROPHILS 6.4 thou/uL (1.4-8.2)
[2019-01-05 08:45] LABS: ANISOCYTOSIS 1+; OVALOCYTES 1+; POLYCHROMASIA 1+; SCHISTOCYTES OCCASIONAL
[2019-01-05] MEDS ORDERED: NORCO 5-325 TA1 EAC1 PO (08:45)
[2019-01-05 09:10] VITALS: BP 125/72
== END 2019-01-05 09:10 | disposition home or self-care (01) ==
LOC: ER 07:50
PROVIDERS: Emergency Medicine
DX: M25.511 Pain in right shoulder (principal); I12.9 Hypertensive chronic kidney disease with stage 1 through stage 4 chronic kidney disease, or unspecified chronic kidney disease; E11.22 Type 2 diabetes mellitus with diabetic chronic kidney disease; N18.3 Chronic kidney disease, stage 3 (moderate); E78.00 Pure hypercholesterolemia, unspecified; G47.30 Sleep apnea, unspecified; I48.91 Unspecified atrial fibrillation; F17.290 Nicotine dependence, other tobacco product, uncomplicated; Z86.73 Personal history of transient ischemic attack (TIA), and cerebral infarction without residual deficits; Z96.651 Presence of right artificial knee joint; Z96.611 Presence of right artificial shoulder joint; Z96.612 Presence of left artificial shoulder joint; Z98.890 Other specified postprocedural states; Z91.048 Other nonmedicinal substance allergy status

== ENCOUNTER → 2019-06-24 | Outpatient (CLI) | payer OTHER ==
[~2019-06-24] MED LIST changes: +DESYREL150 MG PO; +DOXYCYCLINE 10100 M2 PO; +MIDODRINE HCL 55 M1 PO; +PROBIOTIC1 EAC7 PO; +TORSEMIDE20 MG PO
== END ==
LOC: SJCVCIMAG 08:20
DX: M79.661 Pain in right lower leg (principal); M79.89 Other specified soft tissue disorders; I87.2 Venous insufficiency (chronic) (peripheral); R59.9 Enlarged lymph nodes, unspecified

== ENCOUNTER 2019-06-30 18:47 | Emergency (ER) | payer OTHER ==
[~2019-06-30] VITALS: Ht 185.4 cm; Wt 90.7 kg
[~2019-06-30 18:47] MED LIST changes: -DESYREL150 MG PO; -DOXYCYCLINE 10100 M2 PO; -MIDODRINE HCL 55 M1 PO; -PROBIOTIC1 EAC7 PO; -TORSEMIDE20 MG PO
[2019-06-30] MEDS ORDERED: TORSEMIDE20 MG PO (19:30)
[2019-06-30] MEDS ORDERED: FLOMAX0.4 MG PO (19:33)
[2019-06-30] MEDS ORDERED: DESYREL150 MG PO (19:34)
[2019-06-30] MEDS ORDERED: MIDODRINE HCL 55 M1 PO (19:44)
[2019-06-30] MEDS ORDERED: PROBIOTIC1 EAC7 PO (19:45)
[2019-06-30 20:01] LABS: HEMOGLOBIN 10.9 gm/dL (14.0-18.0)
[2019-06-30 20:03] LABS: ABSOLUTE NEUTROPHILS 5.4 thou/uL (1.4-8.2); BASOPHILS 0.8 % (0.0-2.0); EOSINOPHILS 0.9 % (0.0-3.0); HEMATOCRIT 33.1 % (42.0-52.0); LYMPHOCYTES 7.9 % (24.0-44.0); MCH 29.1 pg (26.0-34.0); MCHC 32.8 g/dL (28.0-37.0); MCV 88.8 fL (80.0-100.0); MONOCYTES 10.9 % (1.0-8.0); PLATELET COUNT 208 thou/uL (150-400); POLYS 79.5 % (36.0-66.0); RBC 3.73 mil/uL (4.50-6.00); RDW 16.3 % (10.5-14.5); WBC 6.8 thou/uL (4.0-11.0)
[2019-06-30 20:24] LABS: CALCIUM 8.8 mg/dL (8.5-10.1); CREATININE 2.1 mg/dL (0.7-1.3)
[2019-06-30 20:29] LABS: ALBUMIN 3.4 g/dL (3.4-5.0); DIRECT BILIRUBIN 0.5 mg/dL (<0.1-0.2); TOTAL BILIRUBIN 1.2 mg/dL (<0.1-1.0); TOTAL PROTEIN 6.4 g/dL (6.4-8.2)
[2019-06-30] MEDS ORDERED: NORCO 5-325 TA1 EAC1 PO (21:03)
[2019-06-30] MEDS ORDERED: DOXYCYCLINE 10100 M2 PO (21:03)
[2019-06-30 21:25] VITALS: BP 127/77
== END 2019-06-30 21:26 | disposition home or self-care (01) ==
LOC: ER 18:47
PROVIDERS: Emergency Medicine
DX: L03.116 Cellulitis of left lower limb (principal); L03.115 Cellulitis of right lower limb; I12.9 Hypertensive chronic kidney disease with stage 1 through stage 4 chronic kidney disease, or unspecified chronic kidney disease; I48.91 Unspecified atrial fibrillation; E11.22 Type 2 diabetes mellitus with diabetic chronic kidney disease; E78.00 Pure hypercholesterolemia, unspecified; N18.3 Chronic kidney disease, stage 3 (moderate); G47.30 Sleep apnea, unspecified; F17.220 Nicotine dependence, chewing tobacco, uncomplicated; Z96.611 Presence of right artificial shoulder joint; Z96.612 Presence of left artificial shoulder joint; Z90.49 Acquired absence of other specified parts of digestive tract; Z96.651 Presence of right artificial knee joint; Z86.73 Personal history of transient ischemic attack (TIA), and cerebral infarction without residual deficits

== ENCOUNTER → 2019-07-01 | Outpatient (CLI) | payer OTHER ==
[~2019-07-01] MED LIST changes: +DESYREL150 MG PO; +DOXYCYCLINE 10100 M2 PO; +MIDODRINE HCL 55 M1 PO; +PROBIOTIC1 EAC7 PO; +TORSEMIDE20 MG PO
== END ==
LOC: HYPER 12:06
DX: L97.821 Non-pressure chronic ulcer of other part of left lower leg limited to breakdown of skin (principal); L03.116 Cellulitis of left lower limb; L03.115 Cellulitis of right lower limb; I87.2 Venous insufficiency (chronic) (peripheral); R60.0 Localized edema; I48.11 Longstanding persistent atrial fibrillation; I25.10 Atherosclerotic heart disease of native coronary artery without angina pectoris; E78.00 Pure hypercholesterolemia, unspecified; I12.9 Hypertensive chronic kidney disease with stage 1 through stage 4 chronic kidney disease, or unspecified chronic kidney disease; N18.9 Chronic kidney disease, unspecified; I25.2 Old myocardial infarction; M19.90 Unspecified osteoarthritis, unspecified site; M86.9 Osteomyelitis, unspecified; F32.9 Major depressive disorder, single episode, unspecified; Z86.73 Personal history of transient ischemic attack (TIA), and cerebral infarction without residual deficits; Z87.891 Personal history of nicotine dependence; Z96.611 Presence of right artificial shoulder joint; Z96.612 Presence of left artificial shoulder joint; Z79.01 Long term (current) use of anticoagulants

== ENCOUNTER → 2019-07-08 | Outpatient (CLI) | payer OTHER | LOC: HYPER 14:51 | DX: L97.822 Non-pressure chronic ulcer of other part of left lower leg with fat layer exposed (principal); M86.9 Osteomyelitis, unspecified; M19.90 Unspecified osteoarthritis, unspecified site; R60.0 Localized edema; I48.19 Other persistent atrial fibrillation; I25.10 Atherosclerotic heart disease of native coronary artery without angina pectoris; E78.00 Pure hypercholesterolemia, unspecified; I12.9 Hypertensive chronic kidney disease with stage 1 through stage 4 chronic kidney disease, or unspecified chronic kidney disease; N18.9 Chronic kidney disease, unspecified; I25.2 Old myocardial infarction; F32.9 Major depressive disorder, single episode, unspecified; Z86.73 Personal history of transient ischemic attack (TIA), and cerebral infarction without residual deficits; Z96.611 Presence of right artificial shoulder joint; Z96.612 Presence of left artificial shoulder joint; Z87.891 Personal history of nicotine dependence; Z79.01 Long term (current) use of anticoagulants ==

== ENCOUNTER → 2019-07-13 | Outpatient (CLI) | payer OTHER | LOC: SJCVCIMAG 08:49 | DX: I87.2 Venous insufficiency (chronic) (peripheral) (principal) ==

== ENCOUNTER → 2019-07-22 | Outpatient (CLI) | payer OTHER | LOC: HYPER 14:43 | DX: L97.811 Non-pressure chronic ulcer of other part of right lower leg limited to breakdown of skin (principal); L97.821 Non-pressure chronic ulcer of other part of left lower leg limited to breakdown of skin; L03.116 Cellulitis of left lower limb; L03.115 Cellulitis of right lower limb; S81.811A Laceration without foreign body, right lower leg, initial encounter; I87.2 Venous insufficiency (chronic) (peripheral); I48.19 Other persistent atrial fibrillation; I25.10 Atherosclerotic heart disease of native coronary artery without angina pectoris; I10 Essential (primary) hypertension; E78.00 Pure hypercholesterolemia, unspecified; N18.9 Chronic kidney disease, unspecified; I12.9 Hypertensive chronic kidney disease with stage 1 through stage 4 chronic kidney disease, or unspecified chronic kidney disease; I25.2 Old myocardial infarction; M86.9 Osteomyelitis, unspecified; M19.90 Unspecified osteoarthritis, unspecified site; F32.9 Major depressive disorder, single episode, unspecified; Z86.73 Personal history of transient ischemic attack (TIA), and cerebral infarction without residual deficits; Z96.611 Presence of right artificial shoulder joint; Z96.612 Presence of left artificial shoulder joint; Z79.01 Long term (current) use of anticoagulants; X58.XXXA Exposure to other specified factors, initial encounter; Y93.89 Activity, other specified; Y92.89 Other specified places as the place of occurrence of the external cause; Y99.8 Other external cause status ==

== ENCOUNTER → 2019-08-05 | Outpatient (CLI) | payer OTHER | LOC: HYPER 14:05 | DX: L97.811 Non-pressure chronic ulcer of other part of right lower leg limited to breakdown of skin (principal); L97.821 Non-pressure chronic ulcer of other part of left lower leg limited to breakdown of skin; L03.115 Cellulitis of right lower limb; L03.116 Cellulitis of left lower limb; L84 Corns and callosities; R60.0 Localized edema; I48.19 Other persistent atrial fibrillation; I25.10 Atherosclerotic heart disease of native coronary artery without angina pectoris; I12.9 Hypertensive chronic kidney disease with stage 1 through stage 4 chronic kidney disease, or unspecified chronic kidney disease; N18.9 Chronic kidney disease, unspecified; I25.2 Old myocardial infarction; E78.00 Pure hypercholesterolemia, unspecified; M19.90 Unspecified osteoarthritis, unspecified site; M86.8X8 Other osteomyelitis, other site; F32.9 Major depressive disorder, single episode, unspecified; Z86.73 Personal history of transient ischemic attack (TIA), and cerebral infarction without residual deficits; Z87.891 Personal history of nicotine dependence; Z96.611 Presence of right artificial shoulder joint; Z96.612 Presence of left artificial shoulder joint ==

== ENCOUNTER → 2019-08-26 | Outpatient (CLI) | payer OTHER | LOC: HYPER 14:17 | DX: L97.811 Non-pressure chronic ulcer of other part of right lower leg limited to breakdown of skin (principal); L97.821 Non-pressure chronic ulcer of other part of left lower leg limited to breakdown of skin; L03.116 Cellulitis of left lower limb; L03.115 Cellulitis of right lower limb; L84 Corns and callosities; R60.0 Localized edema; I12.9 Hypertensive chronic kidney disease with stage 1 through stage 4 chronic kidney disease, or unspecified chronic kidney disease; N18.9 Chronic kidney disease, unspecified; I48.19 Other persistent atrial fibrillation; I25.10 Atherosclerotic heart disease of native coronary artery without angina pectoris; I25.2 Old myocardial infarction; E78.00 Pure hypercholesterolemia, unspecified; M19.90 Unspecified osteoarthritis, unspecified site; M86.8X8 Other osteomyelitis, other site; F32.9 Major depressive disorder, single episode, unspecified; Z86.73 Personal history of transient ischemic attack (TIA), and cerebral infarction without residual deficits; Z87.891 Personal history of nicotine dependence; Z96.611 Presence of right artificial shoulder joint; Z96.612 Presence of left artificial shoulder joint ==

== ENCOUNTER → 2019-09-09 | Outpatient (CLI) | payer OTHER | LOC: HYPER 10:55 | DX: L97.812 Non-pressure chronic ulcer of other part of right lower leg with fat layer exposed (principal); L97.821 Non-pressure chronic ulcer of other part of left lower leg limited to breakdown of skin; L03.116 Cellulitis of left lower limb; L03.115 Cellulitis of right lower limb; L84 Corns and callosities; R60.0 Localized edema; I25.10 Atherosclerotic heart disease of native coronary artery without angina pectoris; I12.9 Hypertensive chronic kidney disease with stage 1 through stage 4 chronic kidney disease, or unspecified chronic kidney disease; N18.9 Chronic kidney disease, unspecified; I25.2 Old myocardial infarction; I48.19 Other persistent atrial fibrillation; E78.00 Pure hypercholesterolemia, unspecified; M19.90 Unspecified osteoarthritis, unspecified site; M86.8X8 Other osteomyelitis, other site; F32.9 Major depressive disorder, single episode, unspecified; Z86.73 Personal history of transient ischemic attack (TIA), and cerebral infarction without residual deficits; Z87.891 Personal history of nicotine dependence; Z96.611 Presence of right artificial shoulder joint; Z96.612 Presence of left artificial shoulder joint ==

== ENCOUNTER → 2019-09-30 | Outpatient (CLI) | payer OTHER | LOC: HYPER 13:28 | DX: L97.812 Non-pressure chronic ulcer of other part of right lower leg with fat layer exposed (principal); L03.116 Cellulitis of left lower limb; L03.115 Cellulitis of right lower limb; L84 Corns and callosities; R60.0 Localized edema; I87.8 Other specified disorders of veins; I48.19 Other persistent atrial fibrillation; I25.10 Atherosclerotic heart disease of native coronary artery without angina pectoris; I12.9 Hypertensive chronic kidney disease with stage 1 through stage 4 chronic kidney disease, or unspecified chronic kidney disease; N18.9 Chronic kidney disease, unspecified; I25.2 Old myocardial infarction; E78.00 Pure hypercholesterolemia, unspecified; M19.90 Unspecified osteoarthritis, unspecified site; M86.8X8 Other osteomyelitis, other site; F32.9 Major depressive disorder, single episode, unspecified; Z86.73 Personal history of transient ischemic attack (TIA), and cerebral infarction without residual deficits; Z87.891 Personal history of nicotine dependence; Z96.611 Presence of right artificial shoulder joint; Z96.612 Presence of left artificial shoulder joint ==

== ENCOUNTER → 2019-10-21 | Outpatient (CLI) | payer OTHER | LOC: HYPER 14:09 | PROVIDERS: ATTEND Emergency Medicine | DX: L97.812 Non-pressure chronic ulcer of other part of right lower leg with fat layer exposed (principal); L89.152 Pressure ulcer of sacral region, stage 2; L03.116 Cellulitis of left lower limb; L03.115 Cellulitis of right lower limb; S51.812A Laceration without foreign body of left forearm, initial encounter; R60.0 Localized edema; E78.00 Pure hypercholesterolemia, unspecified; I48.19 Other persistent atrial fibrillation; I25.10 Atherosclerotic heart disease of native coronary artery without angina pectoris; I12.9 Hypertensive chronic kidney disease with stage 1 through stage 4 chronic kidney disease, or unspecified chronic kidney disease; N18.9 Chronic kidney disease, unspecified; I25.2 Old myocardial infarction; I87.8 Other specified disorders of veins; M86.8X8 Other osteomyelitis, other site; M19.90 Unspecified osteoarthritis, unspecified site; F32.9 Major depressive disorder, single episode, unspecified; Z87.891 Personal history of nicotine dependence; Z96.611 Presence of right artificial shoulder joint; Z96.612 Presence of left artificial shoulder joint; Z86.73 Personal history of transient ischemic attack (TIA), and cerebral infarction without residual deficits; X58.XXXA Exposure to other specified factors, initial encounter; Y93.89 Activity, other specified; Y92.89 Other specified places as the place of occurrence of the external cause; Y99.8 Other external cause status ==

== ENCOUNTER → 2019-11-11 | Outpatient (CLI) | payer OTHER | LOC: HYPER 08:53 | PROVIDERS: ATTEND Emergency Medicine | DX: L89.152 Pressure ulcer of sacral region, stage 2 (principal); L97.812 Non-pressure chronic ulcer of other part of right lower leg with fat layer exposed; L03.115 Cellulitis of right lower limb; L03.116 Cellulitis of left lower limb; R60.0 Localized edema; I48.19 Other persistent atrial fibrillation; I25.10 Atherosclerotic heart disease of native coronary artery without angina pectoris; E78.00 Pure hypercholesterolemia, unspecified; I12.9 Hypertensive chronic kidney disease with stage 1 through stage 4 chronic kidney disease, or unspecified chronic kidney disease; N18.9 Chronic kidney disease, unspecified; I25.2 Old myocardial infarction; M19.90 Unspecified osteoarthritis, unspecified site; M86.9 Osteomyelitis, unspecified; F32.9 Major depressive disorder, single episode, unspecified; Z86.73 Personal history of transient ischemic attack (TIA), and cerebral infarction without residual deficits; Z79.01 Long term (current) use of anticoagulants; Z96.611 Presence of right artificial shoulder joint; Z96.612 Presence of left artificial shoulder joint; Z87.891 Personal history of nicotine dependence ==

== ENCOUNTER → 2019-12-09 | Outpatient (CLI) | payer OTHER | LOC: HYPER 14:00 | PROVIDERS: ATTEND Emergency Medicine Emergency Medical Services | DX: L97.812 Non-pressure chronic ulcer of other part of right lower leg with fat layer exposed (principal); L89.152 Pressure ulcer of sacral region, stage 2; L84 Corns and callosities; L03.116 Cellulitis of left lower limb; L03.115 Cellulitis of right lower limb; R60.0 Localized edema; E78.00 Pure hypercholesterolemia, unspecified; I48.19 Other persistent atrial fibrillation; I25.10 Atherosclerotic heart disease of native coronary artery without angina pectoris; I12.9 Hypertensive chronic kidney disease with stage 1 through stage 4 chronic kidney disease, or unspecified chronic kidney disease; N18.9 Chronic kidney disease, unspecified; I25.2 Old myocardial infarction; M19.90 Unspecified osteoarthritis, unspecified site; M86.8X8 Other osteomyelitis, other site; I87.2 Venous insufficiency (chronic) (peripheral); F32.9 Major depressive disorder, single episode, unspecified; Z86.73 Personal history of transient ischemic attack (TIA), and cerebral infarction without residual deficits; Z87.891 Personal history of nicotine dependence; Z96.611 Presence of right artificial shoulder joint; Z96.612 Presence of left artificial shoulder joint ==

== ENCOUNTER 2020-05-15 10:33 | Inpatient (IN) | payer OTHER ==
[~2020-05-15] VITALS: Ht 182.9 cm; Wt 88.1 kg
[~2020-05-15 10:33] MED LIST changes: -NEURONTIN 300300 M1 PO; +NEURONTIN 300M300 M2 PO
[2020-05-15 10:35] VITALS: BP 113/68
[2020-05-15 11:05] LABS: URINE BILIRUBIN NEGATIVE (Negative); URINE BLOOD NEGATIVE (Negative); URINE CLARITY CLEAR; URINE COLOR YELLOW; URINE GLUCOSE-RANDOM* NEGATIVE (Negative); URINE KETONES NEGATIVE (Negative); URINE LEUKOCYTES-REFLEX NEGATIVE (Negative); URINE NITRITE-REFLEX NEGATIVE (Negative); URINE PROTEIN (DIPSTICK) NEGATIVE (Negative); URINE UROBILINOGEN 0.2 E.U./dl (0.2-1.0)
[2020-05-15 12:05] LABS: ABSOLUTE NEUTROPHILS 2.5 thou/uL (1.4-8.2); BASOPHILS 0.8 % (0.0-2.0); EOSINOPHILS 0.6 % (0.0-3.0); HEMATOCRIT 31.3 % (42.0-52.0); HEMOGLOBIN 10.4 gm/dL (14.0-18.0); LYMPHOCYTES 11.8 % (24.0-44.0); MCH 31.6 pg (26.0-34.0); MCHC 33.3 g/dL (28.0-37.0); MONOCYTES 9.6 % (1.0-8.0); PLATELET COUNT 186 thou/uL (150-400); POLYS 77.2 % (36.0-66.0); RBC 3.29 mil/uL (4.50-6.00); RDW 16.5 % (10.5-14.5); WBC 3.2 thou/uL (4.0-11.0)
[2020-05-15 12:17] LABS: INR 1.8
[2020-05-15 12:19] LABS: CALCIUM 8.9 mg/dL (8.5-10.1); CREATININE 1.4 mg/dL (0.7-1.3)
[2020-05-15 12:25] LABS: ALBUMIN 3.1 g/dL (3.4-5.0); POTASSIUM 4.1 mmol/L (3.5-5.1); TOTAL BILIRUBIN 1.6 mg/dL (0.2-1.0); TOTAL PROTEIN 6.2 g/dL (6.4-8.2)
[2020-05-15] MEDS ORDERED: IRON325 PO (12:44)
[2020-05-15] MEDS ORDERED: POTASSIUM20 PO (12:44)
--- NOTE | 2020-05-15 13:55 | EKG ---
[address] [address] ELECTROCARDIOGRAM REPORT Name: CAROLYNE MENESES V Room #: 170-11 ADM IN M.R.#: [id number] Admission: 05/15/20 Attend Phys: Eliceo Aguila MD Discharge: Date of : 38 Report #: [id number] ED Test Date: 2020-05-15 Test Time: 11:22:41 Pat Name: CAROLYNE MENESES Department: Room: 170 Gender: M Rn Oncology Research: ibis : 1940 Requested By: Conner Brenner Order Number: [id number] MD: Rakesh Meyer Measurements Intervals [place] Rate: 83 P: [place]: QRS: 103 QRSD: 88 T: QT: 476 QTc: 560 Interpretive Statements Atrial fibrillation Ventricular premature complex Right axis deviation Low voltage, extremity and precordial leads Anteroseptal infarct, old Baseline wander in lead(s) V5 Compared to ECG 01/05/2019 07:54:49 Ventricular premature complex(es) now present Right-axis deviation now present Low QRS voltage now present Electronically Signed On 05-15-2020 13:55:06 ADMINISTRATIVE STAFF SUPERVISOR by Rakesh Meyer [email or web address] <ELECTRONICALLY SIGNED> By: Rakesh Meyer MD, FACC 05/15/20 1355 1122 1122 Rakesh Meyer MD, FAC /EPI
--- NOTE | 2020-05-15 16:03 | NUR ---
80-year-old male presenting to the ER with blood per rectum x1 to 2 weeks. States that over the last week or so he has been noticing dark red blood with his stools. Of note patient is on Xarelto for chronic A-fib. Patient was recently tested positive for Covid. Per ED documentation and that of the patient the patient swab was obtained 8 days ago on May 07 and reportedly came back positive. The patient has been admitted for a GI bleed, recent as of 05-07-20 per ED Record COVID POSITIVE not requiring hospitalization, chronic bilateral lower extremity cellulitis, venous stasis dermatitis, cardiomyopathy with an EF of 45%, A-fib, CKD, HLD, Carotid stenosis, CAD and MACKENZIE. Son Arslan Roman is the son and listed as next of kin and alliance party of notification at [phone]. Spoke with daniella Mcdaniels and introduced role of the CM. Son told me that patient is utilizing [facility] for private duty and uses [facility]. CM will follow for discharge needs.
[2020-05-16] VITALS (9 sets, daily range): BP systolic 103–109; BP diastolic 55–73
--- NOTE | 2020-05-16 05:35 | NUR ---
HANDOFF SENT TO 3W
[2020-05-16] MEDS ORDERED: MIRALAX17 GM PO (11:36)
--- NOTE | 2020-05-16 13:57 | NUR ---
PATIENT DISCHARGED HOME AT THIS TIME. HE WAS EDUCATGED ON NEED TO TAKE LAXATIVE AND ALSO WATCH BLOOD STOOLS. TO CALL IF NEEDED.
--- NOTE | 2020-05-16 14:29 | NUR ---
PT ON SERVICE WITH [facility] PRIOR TO ADM FAXED REFERRAL FOR RESUMPTION OF CARE/DC ORDERS/SUMMARY SPOKE WITH JOSHUA IN INTAKE SHE RECEIVED FAX AND WILL ARRANGE VISITS WITH PT.
--- NOTE | 2020-05-16 16:07 | NUR ---
INITIAL ASSESSMENT/DISCHARGE NOTE: JOSESITO reviewed chart and spoke with nursing and attending physician. Pt was admitted from home due to GI bleed. Pt placed in Enhanced Isolation due to COVID. Pt was discharged home earlier today. Prior to SW visiting with pt and/or family. JOSESITO received call from pt's son, Arslan ([phone]) asking about follow up recommendations as pt continues to bleed. JOSESITO provided Arslan's contact info to attending physician and BOX SORTER to follow up with Arslan. Pt currently on service with [facility]. merchandise planner faxed referral and discharge orders/summary. Pt also has private duty in place at home. No additional SW needs identified at this time, but is available to assist should needs arise.
== END 2020-05-16 06:04 | disposition home health service (06) | DRG 377 ==
LOC: ER 10:33 → EROBS 13:11 → 3W 05-16 06:00
PROVIDERS: Physician Assistant; ADMIT Hospitalist; ATTEND Hospitalist
DX: K92.1 Melena (principal); U07.1 COVID-19; I13.0 Hypertensive heart and chronic kidney disease with heart failure and stage 1 through stage 4 chronic kidney disease, or unspecified chronic kidney disease; L03.116 Cellulitis of left lower limb; L03.115 Cellulitis of right lower limb; I42.9 Cardiomyopathy, unspecified; I48.21 Permanent atrial fibrillation; K64.9 Unspecified hemorrhoids; E78.00 Pure hypercholesterolemia, unspecified; M19.90 Unspecified osteoarthritis, unspecified site; E11.51 Type 2 diabetes mellitus with diabetic peripheral angiopathy without gangrene; E11.22 Type 2 diabetes mellitus with diabetic chronic kidney disease; D64.9 Anemia, unspecified; N18.30 Chronic kidney disease, stage 3 unspecified; F17.210 Nicotine dependence, cigarettes, uncomplicated; I87.8 Other specified disorders of veins; I25.10 Atherosclerotic heart disease of native coronary artery without angina pectoris; E78.5 Hyperlipidemia, unspecified; G47.33 Obstructive sleep apnea (adult) (pediatric); K59.00 Constipation, unspecified; I50.9 Heart failure, unspecified; I65.29 Occlusion and stenosis of unspecified carotid artery; Z66 Do not resuscitate; Z86.16 Personal history of COVID-19; Z96.612 Presence of left artificial shoulder joint; Z96.611 Presence of right artificial shoulder joint; Z90.49 Acquired absence of other specified parts of digestive tract; Z98.42 Cataract extraction status, left eye; Z98.41 Cataract extraction status, right eye; Z79.01 Long term (current) use of anticoagulants; Z79.899 Other long term (current) drug therapy; Z88.2 Allergy status to sulfonamides

== ENCOUNTER 2020-06-02 12:17 | Inpatient (IN) | payer OTHER ==
[~2020-06-02] VITALS: Ht 185.4 cm; Wt 95.3 kg
[~2020-06-02 12:17] MED LIST changes: +IRON325 PO; +MIRALAX17 GM PO; +POTASSIUM20 PO
[2020-06-02 12:28] VITALS: BP 109/67
[2020-06-02 13:15] LABS: ABSOLUTE NEUTROPHILS 4.1 thou/uL (1.4-8.2); BASOPHILS 1.4 % (0.0-2.0); EOSINOPHILS 1.3 % (0.0-3.0); HEMATOCRIT 25.9 % (42.0-52.0); HEMOGLOBIN 8.4 gm/dL (14.0-18.0); LYMPHOCYTES 9.9 % (24.0-44.0); MCHC 32.5 g/dL (28.0-37.0); MCV 95.3 fL (80.0-100.0); MONOCYTES 13.4 % (1.0-8.0); PLATELET COUNT 269 thou/uL (150-400); RBC 2.72 mil/uL (4.50-6.00); RDW 16.3 % (10.5-14.5); WBC 5.5 thou/uL (4.0-11.0)
[2020-06-02 13:38] LABS: CALCIUM 8.3 mg/dL (8.5-10.1); CREATININE 1.8 mg/dL (0.7-1.3); POTASSIUM 4.6 mmol/L (3.5-5.1)
[2020-06-02 13:49] LABS: DIRECT BILIRUBIN 0.5 mg/dL (<0.1-0.2); MAGNESIUM 2.6 mg/dL (1.8-2.4); PHOSPHORUS 5.1 mg/dL (2.6-4.7); TOTAL PROTEIN 6.8 g/dL (6.4-8.2); TROPONIN-I 0.08 ng/mL (<0.06)
[2020-06-02 14:12] LABS: URINE BILIRUBIN NEGATIVE (Negative); URINE BLOOD NEGATIVE (Negative); URINE CLARITY CLEAR; URINE COLOR YELLOW; URINE GLUCOSE-RANDOM* NEGATIVE (Negative); URINE KETONES NEGATIVE (Negative); URINE LEUKOCYTES-REFLEX NEGATIVE (Negative); URINE NITRITE-REFLEX NEGATIVE (Negative); URINE PROTEIN (DIPSTICK) NEGATIVE (Negative); URINE UROBILINOGEN 0.2 E.U./dl (0.2-1.0)
[2020-06-02 15:24] VITALS: BP 100/70
--- NOTE | 2020-06-02 15:32 | EKG ---
[address] [place] [address] ELECTROCARDIOGRAM REPORT Name: CAROLYEN MENESES V Room #: 170-7 ADM IN M.R.#: [id number] Admission: 06/02/20 Attend Phys: Sacha Mcdermott Discharge: Date of : 38 Report #: [id number] [facility] ED Test Date: 2020-06-02 Test Time: 14:37:27 Pat Name: CAROLYNE MENESES Department: Room: 170 Gender: M Objective C Developer: [place] : 1940 Requested By: Damion Aj Order Number: [id number] MD: Rakesh Meyer Measurements Intervals [place] Rate: 66 P: CT: QRS: 24 QRSD: 131 T: 221 QT: 455 QTc: 477 Interpretive Statements Atrial fibrillation Right bundle branch block Nonspecific T abnormalities, lateral leads Compared to ECG 05/15/2020 11:22:41 Right bundle-branch block now present T-wave abnormality now present Ventricular premature complex(es) no longer present Right-axis deviation no longer present Electronically Signed On 06-02-2020 15:32:15 CORNER TRIMMER OPERATOR by Rakesh Meyer [email or web address] <ELECTRONICALLY SIGNED> By: Rakesh Meyer MD, FAC 06/02/20 1532 1437 1437 Rakesh Meyer MD, [facility] /EPI
== END 2020-06-02 15:38 | disposition home or self-care (01) | DRG 291 ==
LOC: ER 12:17 → EROBS 15:24
PROVIDERS: Emergency Medicine; ADMIT Hospitalist; ATTEND Hospitalist
DX: I13.0 Hypertensive heart and chronic kidney disease with heart failure and stage 1 through stage 4 chronic kidney disease, or unspecified chronic kidney disease (principal); I50.33 Acute on chronic diastolic (congestive) heart failure; I48.21 Permanent atrial fibrillation; D50.8 Other iron deficiency anemias; E78.00 Pure hypercholesterolemia, unspecified; Z96.612 Presence of left artificial shoulder joint; Z96.611 Presence of right artificial shoulder joint; E11.51 Type 2 diabetes mellitus with diabetic peripheral angiopathy without gangrene; Z96.643 Presence of artificial hip joint, bilateral; N18.30 Chronic kidney disease, stage 3 unspecified; M19.90 Unspecified osteoarthritis, unspecified site; R53.82 Chronic fatigue, unspecified; I87.2 Venous insufficiency (chronic) (peripheral); H54.62 Unqualified visual loss, left eye, normal vision right eye; E11.22 Type 2 diabetes mellitus with diabetic chronic kidney disease; F17.220 Nicotine dependence, chewing tobacco, uncomplicated; F03.90 Unspecified dementia, unspecified severity, without behavioral disturbance, psychotic disturbance, mood disturbance, and anxiety; I65.29 Occlusion and stenosis of unspecified carotid artery; Z86.16 Personal history of COVID-19; Z90.49 Acquired absence of other specified parts of digestive tract; Z98.49 Cataract extraction status, unspecified eye; Z86.73 Personal history of transient ischemic attack (TIA), and cerebral infarction without residual deficits; Z88.2 Allergy status to sulfonamides; Z79.899 Other long term (current) drug therapy; Z59.0 Homelessness

== ENCOUNTER 2020-06-25 13:01 | Emergency (ER) | payer OTHER ==
[~2020-06-25] VITALS: Ht 182.9 cm; Wt 90.7 kg
[2020-06-25] MEDS ORDERED: KEFLEX500 M1 PO (14:10)
[2020-06-25 14:23] VITALS: BP 106/70
== END 2020-06-25 14:23 | disposition home or self-care (01) ==
LOC: ER 13:01
DX: S81.812A Laceration without foreign body, left lower leg, initial encounter (principal); E78.5 Hyperlipidemia, unspecified; I48.91 Unspecified atrial fibrillation; E11.22 Type 2 diabetes mellitus with diabetic chronic kidney disease; I12.9 Hypertensive chronic kidney disease with stage 1 through stage 4 chronic kidney disease, or unspecified chronic kidney disease; N18.30 Chronic kidney disease, stage 3 unspecified; Z79.899 Other long term (current) drug therapy; Z86.73 Personal history of transient ischemic attack (TIA), and cerebral infarction without residual deficits; Z88.2 Allergy status to sulfonamides; W26.8XXA Contact with other sharp object(s), not elsewhere classified, initial encounter; Y93.89 Activity, other specified; Y92.89 Other specified places as the place of occurrence of the external cause; Y99.8 Other external cause status

== ENCOUNTER 2020-07-04 13:09 | Inpatient (IN) | payer OTHER ==
[~2020-07-04] VITALS: Ht 182.9 cm; Wt 112.4 kg
--- NOTE | ~2020-07-04 | HC ---
[facility] [place] [address] CONSULTATION Name: CAROLYNE MENESES V Room #: 359-P ADM IN M.R.#: [id number] Admission: 07/04/20 Attend Phys: Raymond Buchanan MD Discharge: Date of : 38 Report #: [id number] THIS REPORT FOR: cc: Maciel Teixeira MD, [place] S. MD Al-Absi,Carine Ellis MD ~ REASON FOR CONSULTATION: Chronic kidney disease. REASON FOR PRESENTATION: Worsening edema. HISTORY OF PRESENT ILLNESS: Very well-known patient to me from the previous admission. He required an extensive hospital stay for an extended hospital stay back in April of 2019. He then went to the rehabilitation to continue with the efforts to rehabilitate him. He is known to have extensive renal history. He has a long history of atrial fibrillation. He is also suffering from hypertension. He has chronic kidney disease with his baseline creatinine recently in the 2 range. We had achieved an euvolemic status in the previous admission and the patient was discharged appropriately on diuretics; however, he had been significantly gaining weight in the last couple of weeks. His son reported about 40 pounds of weight gain with significant lower extremity edema. He also reported to shortness of breath. He presented for further evaluation and management. I was consulted to manage his diuresis. He is usually taking torsemide at home. His son has increased the dose of his torsemide to 80 mg once a day without any improvement in the swelling or the shortness of breath. PAST MEDICAL AND SURGICAL HISTORY: 1. Hypertension. 2. Hyperlipidemia. 3. Bilateral total shoulder replacement. 4. Bilateral rotator cuff repair. 5. Lumbar laminectomy. 6. Colon resections. 7. Left eye surgery. 8. Peripheral vascular disease. 9. Appendectomy. 10. Stage 4 chronic kidney disease. 11. Atrial fibrillation. 12. Cerebrovascular accident. 13. Diabetes mellitus. 14. History of COVID-19 back in April 2020. MEDICATIONS: 1. Gabapentin. 2. Torsemide. 3. Trazodone. 4. Potassium chloride. [facility] [address] [place] [address] CONSULTATION Name: CAROLYNE MENESES V Room #: 359-P [facility] IN .R.#: [id number] Admission: 07/04/20 Attend Phys: Raymond Buchanan MD Discharge: Date of : 38 Report #: [id number] 5. Atorvastatin. ALLERGIES: SULFA. SOCIAL HISTORY: No drug or alcohol abuse, but he chews tobacco. REVIEW OF SYSTEMS: GENERAL: Significant for weakness and lethargy. CARDIOVASCULAR: Significant for shortness of breath and dyspnea on exertion with significant weight gain and lower extremity edema. PULMONARY: Significant for dyspnea on exertion, but no cough or hemoptysis. GASTROINTESTINAL: No nausea or vomiting. GENITOURINARY: No frequency, no urgency. MUSCULOSKELETAL: As per the history of present illness. NEUROLOGICAL: No headache, no dizziness. FAMILY HISTORY: Significant for hypertension and diabetes mellitus. PHYSICAL EXAMINATION: GENERAL: Blood pressure is 105/66, pulse rate is 87, temperature is 36.6. HEAD AND NECK: No jugular venous distention. CHEST: Decreased air entry bilaterally with crackles. CARDIOVASCULAR: No rub detected. ABDOMEN: Soft with abdominal wall edema. LOWER EXTREMITIES: Massive anasarca all the way up to the thigh. LABORATORY DATA: His hemoglobin is 9.2. Sodium is 135, BUN is 62, creatinine is 1.8. C-reactive protein is 35.1. Urinalysis negative. IMPRESSION AND PLAN: 1. Massive anasarca. 2. Chronic kidney disease. 3. Coronary artery disease. 4. Atrial fibrillation. 5. Debility. 6. Initiate the patient on Lasix drip. 7. Salt restriction. Unfortunately, most of his issues and is not all of his issues are due to noncompliance with low salt diet. 8. If needed, I will add metolazone. 9. Need to discuss long-term care plans with his son and with him. I do not think that he is a good candidate for dialysis. 10. Continue to optimize his heart condition, Cardiology following. He suffers [address] [address] CONSULTATION Name: CAROLYNE MENESES V Room #: 359-P [facility] IN .R.#: [id number] Admission: 07/04/20 Attend Phys: Raymond Buchanan MD Discharge: Date of : 38 Report #: [id number] from chronic hypotension, which is complicating his ideal heart failure management. By: 0747 Carine Thorpe, /heladio
[2020-07-04 13:13] VITALS: BP 124/73
[2020-07-04 14:18] LABS: ABSOLUTE NEUTROPHILS 6.7 thou/uL (1.4-8.2); BASOPHILS 1.5 % (0.0-2.0); EOSINOPHILS 1.3 % (0.0-3.0); HEMATOCRIT 31.1 % (42.0-52.0); HEMOGLOBIN 9.7 gm/dL (14.0-18.0); MCH 28.3 pg (26.0-34.0); MCHC 31.2 g/dL (28.0-37.0); MCV 90.7 fL (80.0-100.0); MONOCYTES 7.9 % (1.0-8.0); PLATELET COUNT 229 thou/uL (150-400); POLYS 83.3 % (36.0-66.0); RBC 3.43 mil/uL (4.50-6.00); RDW 16.3 % (10.5-14.5)
[2020-07-04 14:29] LABS: URINE BILIRUBIN NEGATIVE (Negative); URINE BLOOD NEGATIVE (Negative); URINE CLARITY CLEAR; URINE COLOR YELLOW; URINE GLUCOSE-RANDOM* NEGATIVE (Negative); URINE KETONES NEGATIVE (Negative); URINE LEUKOCYTES-REFLEX NEGATIVE (Negative); URINE NITRITE-REFLEX NEGATIVE (Negative); URINE PROTEIN (DIPSTICK) NEGATIVE (Negative); URINE SPECIFIC GRAVITY 1.015 (1.005-1.035); URINE UROBILINOGEN 0.2 E.U./dl (0.2-1.0)
[2020-07-04 14:39] LABS: CALCIUM 8.5 mg/dL (8.5-10.1); POTASSIUM 4.3 mmol/L (3.5-5.1)
[2020-07-04 14:45] LABS: ALBUMIN 3.1 g/dL (3.4-5.0); TOTAL BILIRUBIN 1.1 mg/dL (0.2-1.0)
[2020-07-04 15:59] VITALS: BP 134/51
--- NOTE | 2020-07-04 16:18 | EKG ---
[facility] [employer] [place] [address] ELECTROCARDIOGRAM REPORT Name: CAROLYNE MENESES V Room #: 170-11 ADM IN M.R.#: [id number] Admission: 07/04/20 Attend Phys: Raymond Buchanan MD Discharge: Date of : 38 Report #: [id number] [facility] ED Test Date: 2020-07-04 Test Time: 13:55:36 Pat Name: CAROLYNE MENESES Department: Room: 170 Gender: M Pool Table Mechanic: : 1940 Requested By: Chani Rebolledo Order Number: [id number] MD: Rakesh Meyer Measurements Intervals [place] Rate: 73 P: [place]: QRS: 72 QRSD: 89 T: 242 QT: 531 QTc: 586 Interpretive Statements Atrial fibrillation Ventricular premature complex Low voltage, extremity and precordial leads RSR' in V1 or V2, probably normal variant Compared to ECG 06/02/2020 14:37:27 Ventricular premature complex(es) now present Low QRS voltage now present RSR' in V1 or V2 now present Prolonged QT interval now present Right bundle-branch block no longer present T-wave abnormality no longer present Electronically Signed On 07-04-2020 16:18:40 ROOFING TECHNICIAN by Rakesh Meyer [email or web address] <ELECTRONICALLY SIGNED> By: Rakesh Meyer MD, [facility] 07/04/20 1618 1355 1355 Rakesh Meyer MD, [facility] /EPI
--- NOTE | 2020-07-04 16:21 | NUR ---
ATTEMPTED TO CALL REPORT, NOTIFIED THAT NURSE IS IN ROOM AND UNAVAIL AT THIS TIME. WAS ASKED IF A CALL BACK COULD BE COMPLETED WHEN SHE IS FINISHED, NOTIFIED I HAVE TO TAKE THE PATIENT UP BUT IF SHE CALLED BEFORE I LEFT THE FLOOR WOULD GIVE PHONE REPORT IF NOT WE CAN COMPLETE AT THE BEDSIDE.
[2020-07-04 16:51] VITALS: BP 109/72
[2020-07-04 20:35] VITALS: BP 113/75
--- NOTE | 2020-07-04 22:58 | NUR ---
WOUND CARE DONE PER ORDERS TO YAZMIN LE. WENT TO PLACE OTILIA WRAPS TO BOTH LEGS AND PT REFUSED AFTER PARTIALLY PLACING THE WRAP ON RLE. "NOPE, I CAN'T STAND HAVING THAT ON MY FEET. I'LL BE UP TRYING TO GET THOSE THINGS OFF."
[2020-07-04 23:44] VITALS: BP 98/61
[2020-07-05 04:31] VITALS: BP 104/72
--- NOTE | 2020-07-05 04:41 | NUR ---
PT MAKING POOR PROGRESS TOWARDS GOALS. "I SURE DON'T PEE THIS MUCH A HOME." URINE OUTPUT 675ML (CLEAR YELLOW URINE). NOTED 720ML PO FLUID INTAKE. WILL PROVIDE FLUIDS IN SMALL CUPS RATHER THAN HOSPITAL PROVIDED DRINKING JUGS.
[2020-07-05 05:34] LABS: HEMATOCRIT 28.5 % (42.0-52.0); HEMOGLOBIN 9.2 gm/dL (14.0-18.0); MCHC 32.2 g/dL (28.0-37.0); RBC 3.16 mil/uL (4.50-6.00); RDW 16.2 % (10.5-14.5); WBC 5.4 thou/uL (4.0-11.0)
[2020-07-05 05:56] LABS: CALCIUM 8.3 mg/dL (8.5-10.1); CREATININE 1.8 mg/dL (0.7-1.3); MAGNESIUM 2.5 mg/dL (1.8-2.4); POTASSIUM 4.2 mmol/L (3.5-5.1)
[2020-07-05 06:52] VITALS: BP 105/66
--- NOTE | 2020-07-05 08:58 | 2DMMODE ---
[facility] [place] [address] 2 D/M-MODE ECHOCARDIOGRAM Name: CAROLYNE MENESES V Room #: 359-P ADM IN M.R.#: [id number] Admission: 07/04/20 Attend Phys: Raymond Buchanan MD Discharge: Date of : 38 Report #: [id number] THIS REPORT FOR: cc: Maciel Teixeira MD, [place] S. MD Santiago, Patrick MD [facility] ~ APPROVED REPORT Study performed: 07/05/2020 08:12:18 EXAM: Limited 2D, Doppler, and color-flow Echocardiogram Patient Location: Bedside Room #: 359 Status: routine BSA: 2.33 HR: 93 bpm BP: 105/66 mmHg Rhythm: Atrial Fibrillation Other Information Study Quality: Good Indications Limited follow up echo. Short of breath, increased edema, CHF. Hx: Cardiomyopathy, CAD, Afib. 2D Dimensions IVSd: 16.72 (7-11mm) LVOT Diam: 25.03 (18-24mm) LVDd: 46.60 mm PWd: 17.71 (7-11mm) LVDs: 37.80 (25-40mm) Aortic Root: 37.60 mm Aortic Valve AoV Peak Lee.: 1.57 m/s AO Peak Gr.: 14.97 mmHg LVOT Max P.05 mmHg LVOT Max V: 0.71 m/s GAGE Vmax: 2.23 cm2 Tricuspid Valve TR Peak Lee.: 2.90 m/s RAP Estimate: 15.00 mmHg TR Peak Gr.: 33.00 mmHg PA Pressure: 48.00 mmHg Left Ventricle [facility] [address] [place] [address] 2 D/M-MODE ECHOCARDIOGRAM Name: CAROLYNE MENESES V Room #: 359-P [facility] IN Dyan.#: [id number] Admission: 07/04/20 Attend Phys: Raymond Buchanan MD Discharge: Date of : 38 Report #: [id number] The left ventricle is normal size. Severe concentric left ventricular hypertrophy. Left ventricular systolic function is mildly decreased. LVEF is 45-50%. Right Ventricle Right ventricle is dilated. Right ventricle is hypokinetic. Atria Severe biatrial enlargement. Aortic Valve Aortic valve is moderately calcified. No aortic regurgitation is present. Mitral Valve Mitral valve leaflets are thickened. Moderate mitral annular calcification. Trace mitral regurgitation. Tricuspid Valve The tricuspid valve is normal in structure. Moderate to severe tricuspid regurgitation. Estimated PAP is 48mmHg. Great Vessels IVC is dilated and collapses <50% with inspiration. Pericardium Small circumferential pericardial effusion. Bilateral pleural effusions. <Conclusion> Normal left ventricle size, severe concentric hypertrophy Ejection fraction 45% Right ventricle mildly dilated/hypokinetic Aortic valve is moderately calcified Moderate mitral annular calcification. Severe tricuspid valve insufficiency Pulmonary artery systolic pressure estimated at 49 mmHg Trace mostly posterior pericardial effusion IVC dilated and minimally responsive to respiration <ELECTRONICALLY SIGNED> By: Rakesh Meyer MD, FACC 07/05/20857 7 7 Rakesh Meyer MD, FACC /INF
[2020-07-05 11:54] VITALS: BP 93/64
[2020-07-05 15:43] VITALS: BP 107/42
--- NOTE | 2020-07-05 15:52 | NUR ---
INITIAL ASSESSMENT: SW reviewed chart and spoke with nursing and attending physician. Pt was admitted from home due to BLE edema. Pt is on IV lasix. SW met with pt at bedside. Introduced role of SW. Pt is alert/orientated. Pt reports he has 24 hour care at home and services. Pt requested SW speak with his son, Arslan. SW received call from JAYA Monroe at [facility]. Pt is currently on service with the palliative care program. Family has been discussing transitioning pt to hospice when discharged. Pt has DME in place. Mabel has spoken with attending physician regarding plan of care. JOSESITO spoke with pt's son, Arslan, via phone. Introduced role of JOSESITO. Arslan is aware and in agreement with plan for pt to discharge home on hospice when medically stable. JOSESITO is following to assist as needed with discharge planning. [facility]--
--- NOTE | 2020-07-05 18:02 | NUR ---
PT UP IN CHAIR TODAY AND HAD MODERATE BOWEL MOVEMENT ON KOMODE. WOUND CARE CHANGED DRESSINGS AND USE MORPHINE CREAM ON SACRAL AREA. LASIX GTT STARTED AND PT TOLERATED PO WELL. WILL CONTINUE TO ASSESS.
--- NOTE | 2020-07-05 18:46 | NUR ---
CHANGED DRESSINGS BILAT LOWER EXTREMITIES AND WRAPPED LEGS WITH KERLEX PER PT REQUEST.
[2020-07-05 19:50] VITALS: BP 101/56
--- NOTE | 2020-07-06 01:40 | NUR ---
PROGRESS PT A/O X4 BUT SOME CONFUSION NOTED AT TIMES. VSS. LEFT LEG DRESSING CHANGED D/T CLEAR SEROUS DRAINAGE, SUTURES INTACT CLEANSED WITH SALINE, XEROFORM,ABD AND KERLIX APPLIED PRAFO BOOTS ON BILATERALLY. LEFT KNEE DRSG C/D/I WRAPPED WITH OTILIA WRAP. RIGHT LOWER LEG DRESSING C/D/I PT DID NOT WANT IT UNWRAPPED. SACRUM WITH ERYTHEMA BUT APPEARS INTACT, CLEANSED AND MORPHINE CREAM APPLIED ORDERED. PT TAKING TYLENOL AND TRAMADOL FOR PAIN WITH SOME EFFECT. TELEMETRY INTACT READING AFIB WITH A CONTROLLED RATE.IV TO RIGHT FOREARM INFUSING FUROSEMIDE DRIP AT 10ML'S/20 MG PER HOUR. PT VOIDING FREQUENTLY CLEAR YELLOW URINE, DIFFICULTY WITH URINAL D/T SCROTAL AND PENILE EDEMA. PT HAS A GOOD APPETITE EATING JENNIFER CRACKERS AND PEANUT BUTTER, TAKING IN GOOD PO FLUIDS. CONTINUE TO MONITOR. ADEQUATE PO FLUID INTAKE.
[2020-07-06 03:35] VITALS: BP 92/56
[2020-07-06 05:38] LABS: ALBUMIN 2.7 g/dL (3.4-5.0); CALCIUM 8.4 mg/dL (8.5-10.1); CREATININE 1.9 mg/dL (0.7-1.3); PHOSPHORUS 4.3 mg/dL (2.5-4.9)
[2020-07-06 08:00] VITALS: BP 104/65
[2020-07-06 11:30] VITALS: BP 104/65
[2020-07-06 12:00] VITALS: BP 100/72
[2020-07-06] MEDS ORDERED: TRAMADOL 50 MG50 MG PO (13:32)
[2020-07-06] MEDS ORDERED: SSD CREAM 1% 5050 GM TOP (13:32)
[2020-07-06] MEDS ORDERED: LORAZEPAM I2 MG/1 ML PO (13:32)
[2020-07-06] MEDS ORDERED: METOLAZONE 5 MG5 MG PO (13:32)
[2020-07-06] MEDS ORDERED: TORSEMIDE20 MG PO (13:32)
[2020-07-06] MEDS ORDERED: MSL20MG/ML PO (13:32)
[2020-07-06 16:00] VITALS: BP 102/68
--- NOTE | 2020-07-06 16:31 | NUR ---
Tenative plan to dc home with hospice today. Plan dc home with [facility]. Son at bedside and was not anticipating dc today. He sp at length with Dr Buchanan. Son adament no dc today. he needs to have equiptment delivered to home. He was tearful and appears not prepared to trasition from pallative care to hospice. Sp with Dr Buchanan and plan dc in am. Sp with Jammie at [facility]. they plan to have consents signed today at 1600. Notified supervisor char house. Plan dc in am. Faxed updates and orders.
[2020-07-06 19:49] VITALS: BP 99/66
[2020-07-07 03:11] VITALS: BP 101/67
[2020-07-07 05:10] LABS: CALCIUM 8.5 mg/dL (8.5-10.1); CREATININE 1.8 mg/dL (0.7-1.3); POTASSIUM 3.9 mmol/L (3.5-5.1)
--- NOTE | 2020-07-07 05:40 | NUR ---
PROGRESS PT A/O X4 BUT WAKES UP CONFUSED AND IT TAKES A LITTLE WHILE FOR HIM TO RE-ORIENT HIMSELF TO PLACE. BILATERAL LOWER EXTREMETY EDEMA HAS IMPROVED BUT SCROTAL EDEMA APPEARS WORSE PENIS EDEMA HAS RECEDED ENOUGH THAT AN EXTERNAL CATHETER WAS ABLE TO BE PLACED. CELIO AREA IS RED AND MACERATED FROM URINE CLEANSED ZGUARD AND INTER DRY PLACED, ORDER FOR NYSTATIN POWDER OBTAINED. REFUSED PRAFO BOOTS. DRESSING TO LE INTACT AND DRY. TELE INTACT READING AFIB HAD A COUPLE RUNS OF V TACH 6 BEATS NOTED. VSS RPOSITIONED FREQUENTLY POSSIBLE DC HOME WITH HOSPICE TODAY.
[2020-07-07 07:22] VITALS: BP 106/71
--- NOTE | 2020-07-07 07:51 | NUR ---
Note Given: Y Facility List Provided:Y Facility Nael: None chosen at this time Karla Ding NP discussed BPCI with this pt 07/05/2020
[2020-07-07 11:25] VITALS: BP 107/71
--- NOTE | 2020-07-07 13:01 | NUR ---
DISCHARGE NOTE: JOSESITO reviewed chart and spoke with nursing and attending physician. Pt is medically stable for discharge home today with [facility]. JOSESITO spoke with pt's son, Arslan, via phone to discuss discharge plan. Per Arslan, the DME has been delivered to pt's home. Arslan requests transportation to be arranged after 1500 today. Pt able to be transported via w/c van. JOSESIOT arranged w/c van transportation for [phone] via [employer]. Director of Case Mgmt aware of transportation arrangements and authorized. JOSESITO spoke with Jammie at [facility], who confirms they have all the ppwk and orders. Hospice is aware of transportation time. JOSESITO updated nursing and attending physician. No additional SW needs identified at this time, but is available to assist should needs arise.
--- NOTE | 2020-07-07 13:21 | NUR ---
CARE TAKEN OVER AT 0700, PT ALERT AND ORIENTED X4, FORGETFUL AND CONFUSED AT TIMES. DENIES ANY PAIN, NAUSEA AND VOMITTING. CONTINUE TO BE ON ROOM AIR, NO SIGNS OF DISTRESS NOTED. WOUND CARE AND PICTURES COMPLETED. ANTICIPATING FOR D/C TODAY. DR. JAMAR WOODSON WITH DISCONTINUING LASIX DRIP. FALL PRECAUTIONS IN PLACE. DENIES ANY NEEDS AT MOMENT. WILL CONTINUE TO MONITOR
--- NOTE | 2020-07-13 15:40 | HC ---
[facility] [place] [address] CONSULTATION Name: CAROLYNE MENESES V Room #: 359-P [facility] IN M.R.#: [id number] Admission: 07/04/20 Attend Phys: Raymond Buchanan MD Discharge: 07/07/20 Date of : 38 Report #: [id number] THIS REPORT FOR: cc: Maciel Teixeira MD, [place] S. MD Althoff,Zach Draper MD ~ DATE OF SERVICE: 07/04/2020 CHIEF COMPLAINT: Lower extremity ulcerations. HISTORY OF PRESENT ILLNESS: This is an 80-year-old male patient with whom I am familiar from multiple hospitalizations. He has a history of coronary artery disease and history of a cerebrovascular accident as well as chronic venous insufficiency and venous type ulcers. He had a recent fall, sustained a laceration to his left leg, had a primary repair performed in the Emergency Department, and has sutures in place. He is a little bit confused today. He is also complaining of some sacral-gluteal pain that is typical for him and is requesting Silvadene, morphine topically to help with the pain. PAST MEDICAL HISTORY: Positive for hypertension, hyperlipidemia, bilateral shoulder replacements, bilateral rotator cuff repair, lumbar laminectomy. He has sleep apnea, but does not use CPAP on a regular basis. He has had previous colon resection. He has had multiple surgeries and is blind in his left eye. He has had history of diverticulitis, bilateral lower extremity edema, previous appendectomy, idiopathic peripheral neuropathy, chronic kidney disease stage 3, previous TIAs, atrial fibrillation and previous cerebrovascular accident as well as history of diabetes. SOCIAL HISTORY: Negative for current alcohol use. He does occasionally use chewing tobacco. FAMILY HISTORY: Noncontributory. ALLERGIES: INCLUDE SULFA. MEDICATIONS: Include acetaminophen, gabapentin, lorazepam, metolazone, morphine sulfate, Silvadene, tamsulosin, torsemide, tramadol, trazodone. REVIEW OF SYSTEMS: CONSTITUTIONAL: The patient denies fever, chills, or weight loss. NEUROLOGICAL: The patient denies focal weakness, numbness or tingling. EYES: The patient denies visual changes, redness, or drainage. ENT: The patient denies earache, nasal drainage, or sore throat. CARDIOVASCULAR: The patient denies chest pain, palpitations or diaphoresis. PULMONARY: The patient denies cough or shortness of breath. [address] [address] CONSULTATION Name: GIDEONCAROLYNE V Room #: 359-P [facility] IN .R.#: [id number] Admission: 07/04/20 Attend Phys: Raymond Buchanan MD Discharge: 07/07/20 Date of : 38 Report #: [id number] GASTROINTESTINAL: The patient denies nausea or abdominal pain. ORTHOPEDIC: The patient complains of some pain and swelling of his lower extremities as well as a laceration to his left leg. Other systems in a 14-point review of systems are negative. PHYSICAL EXAMINATION: VITAL SIGNS: At this time include temperature 36.7, pulse 94, respiratory rate 20, blood pressure 93/64. GENERAL: This is a chronically ill-appearing male patient who appears to be in no distress. HEENT: Head normocephalic. Nose and throat are clear. NECK: Supple. LUNGS: Diminished. HEART: Irregular without murmur. ABDOMEN: Soft. Bowel sounds present. EXTREMITIES: Lower extremities demonstrate 2+ edema. He has a laceration to the left pretibial region and this has an irregular morphology. There are sutures in place. It does not appear to be grossly infected. He has few small venous ulcers on both lower extremities bilaterally, which are clean, granulating and not infected. Sacral-gluteal region is examined, there is some erythema present. It is blanchable. He does not have any open ulcerations. There are several areas that are tender. NEUROLOGIC: The patient is alert, does move all 4 extremities. LABORATORY DATA: Include sodium 136, potassium 4.0, chloride 99, CO2 of 28, BUN 63, creatinine 1.9, glucose 114, albumin 2.7. CLINICAL IMPRESSION: 1. Moisture-associated skin damage to the sacral-gluteal region. 2. Chronic venous stasis ulcerations, bilateral lower extremities. 3. Laceration to the left lower extremity sutures in place. 4. The patient has history of hypertension, atrial fibrillation, idiopathic peripheral neuropathy and chronic kidney disease. RECOMMENDATIONS: At this point in time, we will recommend Silvadene, morphine compound to the sacral-gluteal region for comfort. He will need a low air loss surface with q. 2 hour turning and repositioning. Recommend Xeroform, ABD, Kerlix and Lane wraps toes to knees bilaterally if he will allow. Sutures should be left in place for at least 14 days and then can be removed. I appreciate being asked to see the patient in consultation. <ELECTRONICALLY SIGNED> By: Zach Mcmillan MD 07/13/20 1540 1133 1347 Zach Mcmillan MD /nt
== END 2020-07-07 16:05 | disposition hospice, home (50) | DRG 291 ==
LOC: ER 13:09 → 3W 15:27 → EROBS 15:27 → 3W 16:47
PROVIDERS: Hospitalist; Nurse Practitioner Family; ADMIT Internal Medicine; ATTEND Internal Medicine
DX: I13.0 Hypertensive heart and chronic kidney disease with heart failure and stage 1 through stage 4 chronic kidney disease, or unspecified chronic kidney disease (principal); I50.23 Acute on chronic systolic (congestive) heart failure; I48.21 Permanent atrial fibrillation; N17.9 Acute kidney failure, unspecified; E44.0 Moderate protein-calorie malnutrition; N18.4 Chronic kidney disease, stage 4 (severe); E78.00 Pure hypercholesterolemia, unspecified; Z96.611 Presence of right artificial shoulder joint; Z96.612 Presence of left artificial shoulder joint; H54.62 Unqualified visual loss, left eye, normal vision right eye; Z96.643 Presence of artificial hip joint, bilateral; E11.51 Type 2 diabetes mellitus with diabetic peripheral angiopathy without gangrene; F17.220 Nicotine dependence, chewing tobacco, uncomplicated; E87.70 Fluid overload, unspecified; I25.10 Atherosclerotic heart disease of native coronary artery without angina pectoris; I87.2 Venous insufficiency (chronic) (peripheral); R53.81 Other malaise; E11.42 Type 2 diabetes mellitus with diabetic polyneuropathy; Z66 Do not resuscitate; D63.8 Anemia in other chronic diseases classified elsewhere; E11.22 Type 2 diabetes mellitus with diabetic chronic kidney disease; G60.9 Hereditary and idiopathic neuropathy, unspecified; Z60.2 Problems related to living alone; S81.812A Laceration without foreign body, left lower leg, initial encounter; Z96.659 Presence of unspecified artificial knee joint; N40.0 Benign prostatic hyperplasia without lower urinary tract symptoms; I65.29 Occlusion and stenosis of unspecified carotid artery; Y99.8 Other external cause status; Z90.49 Acquired absence of other specified parts of digestive tract; Z98.49 Cataract extraction status, unspecified eye; Z86.73 Personal history of transient ischemic attack (TIA), and cerebral infarction without residual deficits; X58.XXXA Exposure to other specified factors, initial encounter; Y93.89 Activity, other specified; Y92.89 Other specified places as the place of occurrence of the external cause; Z88.2 Allergy status to sulfonamides; Z86.16 Personal history of COVID-19; Z68.33 Body mass index [BMI] 33.0-33.9, adult; Z91.19 Patient's noncompliance with other medical treatment and regimen
CPT/HCPCS: 10879

== ENCOUNTER → 2020-08-01 | Outpatient (CLI) | payer OTHER ==
[~2020-08-01] MED LIST changes: +KLOR-CON M2020 MEQ PO; +LIPITOR 20 MG T20 M1 PO; +LORAZEPAM I2 MG/1 ML PO; +METOLAZONE 5 MG5 MG PO; +MSL20MG/ML PO; +SSD CREAM 1% 5050 GM TOP; +STOOL SOFTENER100 M1 PO; +VITAMIN D3 COM1 EACH PO
== END ==
LOC: HYPER 12:16
PROVIDERS: ATTEND Emergency Medicine
DX: L97.812 Non-pressure chronic ulcer of other part of right lower leg with fat layer exposed (principal); L89.152 Pressure ulcer of sacral region, stage 2; L03.116 Cellulitis of left lower limb; L03.115 Cellulitis of right lower limb; S81.802A Unspecified open wound, left lower leg, initial encounter; R60.0 Localized edema; I48.19 Other persistent atrial fibrillation; I25.10 Atherosclerotic heart disease of native coronary artery without angina pectoris; E78.00 Pure hypercholesterolemia, unspecified; I12.9 Hypertensive chronic kidney disease with stage 1 through stage 4 chronic kidney disease, or unspecified chronic kidney disease; N18.9 Chronic kidney disease, unspecified; I25.2 Old myocardial infarction; M19.90 Unspecified osteoarthritis, unspecified site; M86.9 Osteomyelitis, unspecified; F32.9 Major depressive disorder, single episode, unspecified; Z86.73 Personal history of transient ischemic attack (TIA), and cerebral infarction without residual deficits; Z96.611 Presence of right artificial shoulder joint; Z96.612 Presence of left artificial shoulder joint; Z87.891 Personal history of nicotine dependence; Z79.01 Long term (current) use of anticoagulants; Z79.899 Other long term (current) drug therapy; X58.XXXA Exposure to other specified factors, initial encounter; Y93.89 Activity, other specified; Y92.89 Other specified places as the place of occurrence of the external cause; Y99.8 Other external cause status

== ENCOUNTER 2020-08-02 15:34 | Inpatient (IN) | payer OTHER ==
[~2020-08-02] VITALS: Ht 185.4 cm; Wt 95.3 kg
[2020-08-02] VITALS (17 sets, daily range): BP systolic 73–115; BP diastolic 43–72
--- NOTE | ~2020-08-02 | HC ---
[facility] [place] [address] CONSULTATION Name: CAROLYNE MENESES V Room #: 360-P ADM IN M.R.#: [id number] Admission: 08/02/20 Attend Phys: Sheri Uribe MD Discharge: Date of : 38 Report #: [id number] THIS REPORT FOR: cc: Maciel Teixeira MD, Washington S. MD Khosla,Bright Gaffney MD ~ DATE OF SERVICE: 08/08/2020 HISTORY OF PRESENT ILLNESS: This is an 80-year-old male patient who was evaluated by me for altered mental status. This patient has numerous medical problems. He is being seen by Wound Care. He was admitted with generalized fatigue and weakness. History is from the record as well as from the family. If I understand correctly, this patient received a vaccine for COVID and then started feeling some weakness and his temperature went up. His mentation had progressively gone down, but is somewhat better today after changing the antibiotics according to the family. He is being followed by multiple physicians including ID. REVIEW OF SYSTEMS: A 14-point review of system is carried out. He has wound care problem in the lower extremities. He has been considered for hospice care. Apparently, he was having some memory issues even before March, but after March, he is having lot of cognitive issues. A 14-point review of system was carried out, the best it can be carried out from the exam as well as from the family. ID notes indicate that he was in septic shock. Some notes indicate he has a history of hypertension, sleep apnea, peripheral vascular disease, chronic venous insufficiency, atrial fibrillation, extensive medical problems. That was a relevant 14-point review of system. PAST MEDICAL HISTORY: Positive for infection and diabetes. FAMILY HISTORY: Unremarkable. SOCIAL HISTORY: He had a large family. I talked to ____. PHYSICAL EXAMINATION: Indicate he opens his eyes, but he falls asleep. When he opens his eye, he can intermittently follow simple command. His movement appears symmetrical. There does not appear to be any meningeal sign. I cannot look at the fundus. Overall, the patient is responsive, but not responsive enough for a good examination. Heart appeared to be regular. I cannot tell about the pulses. He has bandages there. His blood pressure is 164/76, respirations 17, temperature 98.5. LABORATORY DATA: His white count is 8.7. His potassium was only 2.5. He did have a CT scan during this admission and that was reviewed, which showed age-related finding as well [place] [address] CONSULTATION Name: CAROLYNE MENESES V Room #: 360-P [facility] IN .R.#: [id number] Admission: 08/02/20 Attend Phys: Sheri Uribe MD Discharge: Date of : 38 Report #: [id number] IMPRESSION: Most likely, this patient has encephalopathy. I am not sure what else can be done neurologically. I will talk to the accounting file clerk tomorrow. The only other thing we can do is an MRI in this patient or just continue to support depending upon how aggressive the family want to be. Thank you very much for this referral and if you have any question, please feel free to contact me. By: [id number] Bright Jeronimo MD /nt
[~2020-08-02 15:34] MED LIST changes: -KLOR-CON M2020 MEQ PO; -LIPITOR 20 MG T20 M1 PO; -STOOL SOFTENER100 M1 PO; -VITAMIN D3 COM1 EACH PO
[2020-08-02 16:27] LABS: ABSOLUTE NEUTROPHILS 14.6 thou/uL (1.4-8.2); BASOPHILS 0.7 % (0.0-2.0); HEMATOCRIT 29.5 % (42.0-52.0); HEMOGLOBIN 9.4 gm/dL (14.0-18.0); LYMPHOCYTES 2.1 % (24.0-44.0); MCH 27.2 pg (26.0-34.0); MCV 84.8 fL (80.0-100.0); MONOCYTES 5.1 % (1.0-8.0); PLATELET COUNT 156 thou/uL (150-400); POLYS 92.1 % (36.0-66.0); RBC 3.47 mil/uL (4.50-6.00); RDW 17.9 % (10.5-14.5); WBC 15.9 thou/uL (4.0-11.0)
[2020-08-02 16:35] LABS: CALCIUM 8.5 mg/dL (8.5-10.1); CREATININE 2.8 mg/dL (0.7-1.3); POTASSIUM 3.5 mmol/L (3.5-5.1)
--- NOTE | 2020-08-02 16:36 | EKG ---
[facility] [place] [address] ELECTROCARDIOGRAM REPORT Name: CAROLYNE MENESES V Room #: [facility]#: [id number] Admission: 08/02/20 Attend Phys: Discharge: Date of : 38 Report #: [id number] [facility] ED Test Date: 2020-08-02 Test Time: 16:26:55 Pat Name: CAROLYNE MENESES Department: Room: Gender: Enterprise Analyst: sandra : 1940 Requested By: Conner Brenner Order Number: [id number] MD: Rakesh Meyer Measurements Intervals [place] Rate: 90 P: [place]: QRS: 55 QRSD: 142 T: 19 QT: 439 QTc: 538 Interpretive Statements Atrial fibrillation Right bundle branch block Compared to ECG 07/04/2020 13:55:36 Right bundle-branch block now present Ventricular premature complex(es) no longer present Electronically Signed On 08-02-2020 16:36:09 CDT by Rakesh Meyer [email or web address] <ELECTRONICALLY SIGNED> By: Rakesh Meyer MD, [facility] 08/02/20 1636 25 25 Rakesh Meyer MD, FACC /EPI
[2020-08-02 16:45] LABS: ALBUMIN 2.7 g/dL (3.4-5.0); TOTAL PROTEIN 6.5 g/dL (6.4-8.2)
[2020-08-02 16:52] LABS: TROPONIN-I 1.27 ng/mL (<0.06)
[2020-08-02 17:04] LABS: URINE BILIRUBIN NEGATIVE (Negative); URINE BLOOD NEGATIVE (Negative); URINE CLARITY CLEAR; URINE COLOR YELLOW; URINE GLUCOSE-RANDOM* NEGATIVE (Negative); URINE KETONES NEGATIVE (Negative); URINE LEUKOCYTES-REFLEX NEGATIVE (Negative); URINE NITRITE-REFLEX NEGATIVE (Negative); URINE PROTEIN (DIPSTICK) NEGATIVE (Negative); URINE UROBILINOGEN 0.2 E.U./dl (0.2-1.0)
[2020-08-02] MEDS ORDERED: DEMADEX20 MG PO (17:36)
[2020-08-02] MEDS ORDERED: KLOR-CON M2020 MEQ PO (17:37)
[2020-08-02] MEDS ORDERED: STOOL SOFTENER100 M1 PO (17:39)
[2020-08-02] MEDS ORDERED: VITAMIN D3 COM1 EACH PO (17:40)
--- NOTE | 2020-08-02 19:49 | NUR ---
REPORT GIVEN TO [facility] ICU. RM NOT CLEAN. ICU WILL CALL WHEN CLEAN
[2020-08-02] MEDS ORDERED: XARELTO15 MG PO (20:58)
[2020-08-02 21:20] LABS: CALCIUM 8.1 mg/dL (8.5-10.1); CREATININE 2.7 mg/dL (0.7-1.3); POTASSIUM 3.4 mmol/L (3.5-5.1)
[2020-08-02 21:44] LABS: APTT 45.6 Seconds (24.5-32.8); INR 1.79
[2020-08-02 22:02] LABS: CHOLESTEROL 81 mg/dL (<200); HDL CHOLESTEROL 31 mg/dL (>40); LDL CHOLESTEROL 36 mg/dL (<100); TC:HDL 2.6 Ratio (Not establshd); TRIGLYCERIDE 74 mg/dL (<150); VLDL 15 mg/dL (<40)
[2020-08-02 22:03] LABS: SERUM ASSESSMENT Clear
[2020-08-03] VITALS (82 sets, daily range): BP systolic 66–123; BP diastolic 16–79
[2020-08-03] MEDS ORDERED: LIPITOR 20 MG T20 M1 PO (02:59)
[2020-08-03 05:17] LABS: ABSOLUTE NEUTROPHILS 17.3 thou/uL (1.4-8.2); BASOPHILS 0.1 % (0.0-2.0); HEMOGLOBIN 9.9 gm/dL (14.0-18.0); LYMPHOCYTES 0.6 % (24.0-44.0); MCH 27.7 pg (26.0-34.0); MCHC 32.1 g/dL (28.0-37.0); MCV 86.6 fL (80.0-100.0); MONOCYTES 3.4 % (1.0-8.0); PLATELET COUNT 172 thou/uL (150-400); POLYS 95.9 % (36.0-66.0); RBC 3.58 mil/uL (4.50-6.00); RDW 18.3 % (10.5-14.5); WBC 18.1 thou/uL (4.0-11.0)
[2020-08-03 05:41] LABS: CALCIUM 7.9 mg/dL (8.5-10.1); CREATININE 2.4 mg/dL (0.7-1.3); POTASSIUM 3.7 mmol/L (3.5-5.1)
[2020-08-03 06:20] LABS: TROPONIN-I 2.2 ng/mL (<0.06)
[2020-08-03 09:57] LABS: CALCIUM 8.1 mg/dL (8.5-10.1); CREATININE 2.3 mg/dL (0.7-1.3); POTASSIUM 3.4 mmol/L (3.5-5.1)
--- NOTE | 2020-08-03 10:23 | NUR ---
WILL D/C P.T. AT THIS TIME. PLS REFER TO P.T. VARIANCE AT THIS TIME.
--- NOTE | 2020-08-03 10:43 | NUR ---
chart review. not last visit in june 2020, dcp was home with [facility] community hosp[facility]. cm unable to visit with isabel rt resting with eyes closed. cm left message for son fatmata to call cm back and he did " no he is not on hospice, his dr's for wound, heart and pcp told him be did not need hospice, he had rebounded. he was looking in to palliative but had not done that yet. one community hospice would be his choice if needed in. thank you for checking i will be up there soon"/son fatmata. per [facility] jail manager ok for son to visit 15 min, in pod 1. noted her has [facility] in past and been on 5n acute rehab in past. lives at home. son and daughter support. dme: cpap, walker, cane, shower bench, grab bars and cane. no longer drives. 2 steps to enter home and approx 13 stairs inside the home. will cont following as needed for dc needs.
--- NOTE | 2020-08-03 12:05 | NUR ---
AT APPX 1100, DR. CASTRO WAS HERE ROUNDING ON PT. PT HAD MELENA STOOL THAT WAS WITNESSED BY DR. CASTRO.
[2020-08-03 12:51] LABS: CREATININE 2.4 mg/dL (0.7-1.3); POTASSIUM 3.4 mmol/L (3.5-5.1)
[2020-08-03 14:29] LABS: HEMATOCRIT 29.4 % (42.0-52.0); HEMOGLOBIN 9.5 gm/dL (14.0-18.0)
--- NOTE | 2020-08-03 18:32 | NUR ---
ASSUMED CARE AT 1615, ASSESSMENT AND VITAL SIGNS COMPLETED PER ICU PROTOCOL. PT TRANSFERRED, REPORT RECEIVED FROM JAYA ROBISON. RN WILL CONTINUE TO MONITOR.
[2020-08-03 21:00] LABS: HEMATOCRIT 28.1 % (42.0-52.0); HEMOGLOBIN 9.2 gm/dL (14.0-18.0)
[2020-08-03 21:08] LABS: CALCIUM 7.9 mg/dL (8.5-10.1); CREATININE 2.3 mg/dL (0.7-1.3)
[2020-08-04] VITALS (45 sets, daily range): BP systolic 83–122; BP diastolic 42–81
[2020-08-04 05:50] LABS: ABSOLUTE NEUTROPHILS 14.2 thou/uL (1.4-8.2); BASOPHILS 0.3 % (0.0-2.0); HEMATOCRIT 27.6 % (42.0-52.0); HEMOGLOBIN 8.8 gm/dL (14.0-18.0); LYMPHOCYTES 1.1 % (24.0-44.0); MCH 27.2 pg (26.0-34.0); MCHC 31.9 g/dL (28.0-37.0); MCV 85.4 fL (80.0-100.0); MONOCYTES 5.3 % (1.0-8.0); PLATELET COUNT 133 thou/uL (150-400); POLYS 93.3 % (36.0-66.0); RBC 3.24 mil/uL (4.50-6.00); RDW 17.9 % (10.5-14.5); WBC 15.2 thou/uL (4.0-11.0)
[2020-08-04 05:57] LABS: CALCIUM 7.8 mg/dL (8.5-10.1); CREATININE 1.9 mg/dL (0.7-1.3)
--- NOTE | 2020-08-04 07:36 | EKG ---
[address] [address] ELECTROCARDIOGRAM REPORT Name: CAROLYNE MENESES V Room #: 249- ADM IN M.R.#: [id number] Admission: 08/02/20 Attend Phys: Sheri Uribe MD Discharge: Date of : 38 Report #: [id number] [facility] Test Date: 2020-08-04 Test Time: 07:30:15 Pat Name: CAROLYNE MENESES Department: Room: 249 P Gender: M Store Team Member: MELBA : 1940 Requested By: Janel Hernández Order Number: [id number] MD: Eusebio Smallwood Measurements Intervals [place] Rate: 108 P: [place]: QRS: -5 QRSD: 144 T: -13 QT: 440 QTc: 590 Interpretive Statements Atrial fibrillation Right bundle branch block Compared to ECG 08/02/2020 16:26:55 No significant changes Electronically Signed On 08-04-2020 7:36:34 CDT by Eusebio Smallwood [email or web address] <ELECTRONICALLY SIGNED> By: Eusebio Smallwood MD, [facility] 08/04/2036 9 9 Eusebio Smallwood MD, FACC /EPI
--- NOTE | 2020-08-04 08:04 | HC ---
[facility] [place] [address] CONSULTATION Name: CAROLYNE MENESES V Room #: 249-P ADM IN M.R.#: [id number] Admission: 08/02/20 Attend Phys: Sheri Uribe MD Discharge: Date of : 38 Report #: [id number] THIS REPORT FOR: cc: Maciel Teixeira MD, Washington S. MD Barry, Joseph W. MD ~ DATE OF SERVICE: 08/03/2020 INFECTIOUS DISEASE CONSULTATION ATTENDING PHYSICIAN: Dr. Uribe. REASON FOR EVALUATION: Septic shock. HISTORY OF PRESENT ILLNESS: Chart reviewed, the patient examined. This is an 80-year-old gentleman with extensive medical history, has diabetes mellitus, has known vasculopathy, has venous stasis insufficiency, chronic ulcers of the lower extremity, has chronic renal disease as well who generally was doing fairly well. He was followed by the wound care center; however, he became progressively weak over the course of hours to a day prior to his presenting to the Emergency Room, also was noted to be febrile. Of note, had a second round of coronavirus vaccine just 2 days prior. He is quite lethargic at this point, per son had progressive fatigue as well as some anorexia with poor p.o. intake noted. He has been losing weight as well. Evaluation was undertaken in the Emergency Room, was found an elevated lactic acid of 3.0 and a procalcitonin of 39.36. Did have elevated troponin as well. Imaging of the chest, abdomen and pelvis, question of a right basilar pneumonitis. Urinalysis was otherwise unrevealing. Due to hemodynamic instability, he has required pressor support in addition to some fluid resuscitation. Blood cultures thus far are sterile. He has been started empirically on combination therapy with vancomycin, Levaquin and Zosyn. ALLERGIES: LISTED TO SULFA. CURRENT MEDICATIONS: In addition to the above antibiotics, rivaroxaban, amiodarone, hydrocortisone, ipratropium and albuterol inhaler, guaifenesin, famotidine, norepinephrine. PAST MEDICAL HISTORY: As described above, diabetes mellitus has been complicated by vasculopathy, history of hypertension, obstructive sleep apnea, peripheral vascular disease, has chronic venous stasis insufficiency with decubitus ulcer, previous TIAs, atrial fibrillation, had COVID infection in ____. SOCIAL HISTORY: Nonsmoker. No ethanol. No illicit drug use. [address] [address] CONSULTATION Name: CAROLYNE MENESES V Room #: 249-P [facility] IN ..#: [id number] Admission: 08/02/20 Attend Phys: Sheri Uribe MD Discharge: Date of : 38 Report #: [id number] FAMILY HISTORY: Noncontributory. REVIEW OF SYSTEMS: Not reliably obtained. PHYSICAL EXAMINATION: GENERAL: He appears chronically ill and undernourished. He is at least mildly encephalopathic. He is lethargic to somnolent. VITAL SIGNS: Temperature 98.2, pulse 102, respirations 15, blood pressure 119/57. SKIN: Warm, dry. HEENT: Normocephalic. Extraocular muscles intact. Nasal cannula in place at 2 liters per minute. NECK: Supple. LUNGS: Few scattered coarse breath sounds. HEART: Tachycardic, irregular. Does have a soft systolic murmur. He has got a central line in place. ABDOMEN: Mildly distended, otherwise no apparent tenderness, no peritoneal signs. EXTREMITIES: Lower extremities have changes consistent with chronic venous stasis insufficiency with some dermopathy, has got some superficial ulcers on the mid pretibial sites, does have 2+ edema. GENITOURINARY AND RECTAL: Deferred. LABORATORY DATA: Negative MRSA surveillance. Electrolytes: Sodium 135, potassium 3.4, chloride 97, bicarbonate is 25, anion gap of 13, BUN and creatinine 103 and 2.3. Lactic acid down to 2.8, on admission was 3.0. Blood cultures sterile thus far. CBC: White count of 18.1, H and H 9.9 and 31.0, platelets of 172. Coronavirus PCR testing was negative. PT of 19.0, INR of 1.79. Procalcitonin elevated at 39.36. Troponin 1.8. CT abdomen and pelvis ____ showed small to moderate right pleural effusion consolidating right lower lobe infiltrate, patchy dependent left lower lobe infiltrates, significant cardiomyopathy and coronary artery calcifications, cholelithiasis without evidence of cholecystitis, small amount of abdominal pelvic ascites. Urinalysis unremarkable. ASSESSMENT: Septic shock. The patient has extensive underlying medical disease, not entirely clear as to the source, but certainly favors infection given the elevation of procalcitonin and lactic acid. We will continue empiric broad-spectrum antimicrobial therapy has been prescribed, will await culture results. Continue to monitor expectantly, certainly at risk for additional complications. He was made aware that he may well want to strictly be made comfortable. Continue wound care as prescribed. Try to optimize his [facility] [address] [place] [address] CONSULTATION Name: CAROLYNE MENESES V Room #: 249-P ADM IN M.R.#: [id number] Admission: 08/02/20 Attend Phys: Sheri Uribe MD Discharge: Date of : 38 Report #: [id number] nutritional status. At this point, we will add incentive spirometry. We discussed with the patient's son. <ELECTRONICALLY SIGNED> By: Mamadou Moses MD 08/04/20 0804 1227 1815 Mamadou Moses MD /nt
--- NOTE | 2020-08-04 12:04 | NUR ---
discussed during los, no weekend dc. possible ready friday. possible ready to move out of icu. possible will want palliative care at home with dc ready. will cont following as needed for dc needs.
--- NOTE | 2020-08-04 12:09 | NUR ---
ASSUMED CARE AT 0700, ASSESSMENT AND VITAL SIGNS COMPLETED PER ICU PROTOCOL. PT TRANSFERRED TO 3W TO ROOM 360 BY RN IN WHEELCHAIR. REPORT GIVEN TO JAYA DE LEON. PT EXPERIENCED NO DISTRESS DURING TRANSPORT.
[2020-08-04 15:16] LABS: HEMATOCRIT 27.9 % (42.0-52.0); HEMOGLOBIN 9.2 gm/dL (14.0-18.0)
[2020-08-04 18:13] LABS: MAGNESIUM 2.3 mg/dL (1.8-2.4); POTASSIUM 3.5 mmol/L (3.5-5.1)
--- NOTE | 2020-08-04 19:39 | NUR ---
PT TRANSFERED FROM ICU TODAY, PT IS A&OX2 ( PERSON AND PLACE), PT IS CONFUSED AT TIME, PT IS CONTINUING IV PANTOPRAZOLE 8ML/HR AND IV ABX, PT'S VS ARE STABLE, PT HAS POTASSIUME REPLACEMENT TODAY,
[2020-08-04 20:59] LABS: HEMATOCRIT 27.3 % (42.0-52.0); HEMOGLOBIN 8.9 gm/dL (14.0-18.0)
[2020-08-04 21:05] LABS: ABSOLUTE NEUTROPHILS 10.9 thou/uL (1.4-8.2); BASOPHILS 0.2 % (0.0-2.0); HEMATOCRIT 27.3 % (42.0-52.0); HEMOGLOBIN 8.9 gm/dL (14.0-18.0); MCH 28.1 pg (26.0-34.0); MCHC 32.6 g/dL (28.0-37.0); MCV 86.1 fL (80.0-100.0); PLATELET COUNT 133 thou/uL (150-400); POLYS 92.8 % (36.0-66.0); RBC 3.17 mil/uL (4.50-6.00); RDW 18.2 % (10.5-14.5); WBC 11.8 thou/uL (4.0-11.0)
[2020-08-04 21:08] LABS: CALCIUM 8.2 mg/dL (8.5-10.1); CREATININE 1.9 mg/dL (0.7-1.3); POTASSIUM 3.5 mmol/L (3.5-5.1)
[2020-08-05 03:41] LABS: HEMATOCRIT 27.9 % (42.0-52.0)
[2020-08-05 04:16] VITALS: BP 136/77
[2020-08-05 07:49] VITALS: BP 133/96
--- NOTE | 2020-08-05 07:57 | NUR ---
Patient not making progress towards outcome goals. Short of breath with activity, saturation optimal on room air. Confused, figety in bed. Incontinent of loose to liquid maroon stools, monitoring hemoglobin levels. IVFluids infusing, sacral, right arm and lower extremity edema. High fall risks, fall precautions in place.
[2020-08-05 08:35] LABS: HEMATOCRIT 27.8 % (42.0-52.0); HEMOGLOBIN 9.2 gm/dL (14.0-18.0)
[2020-08-05 11:24] VITALS: BP 124/90
[2020-08-05 16:05] VITALS: BP 133/67
--- NOTE | 2020-08-05 18:39 | NUR ---
RN ASSUMED PT'S CARE AT 0700AM, PT KNOWS HIS NAME , PT CAN FOLLOW COMMANDS, BUT PT IS CONFUSED AT TIME, RN HAS REPRTED TO GI DR ABOUT PT STILL HAS SMALL BLOOD STOOL , BUT PT'S HG IS STABLE , PT'S VS ARE STABLE, PT'S WOUND CARE HAS DONE, PT DENIES PAIN AND N/V BY THIS TIME. PT NEEDS HELP MEALS AND CHANGE POSITION.
[2020-08-05 19:44] VITALS: BP 135/84
[2020-08-06] VITALS (7 sets, daily range): BP systolic 113–131; BP diastolic 71–90
[2020-08-06 02:59] LABS: CALCIUM 8.6 mg/dL (8.5-10.1); CREATININE 1.9 mg/dL (0.7-1.3); POTASSIUM 3.8 mmol/L (3.5-5.1)
[2020-08-06 03:12] LABS: ABSOLUTE NEUTROPHILS 6.4 thou/uL (1.4-8.2); BASOPHILS 0.1 % (0.0-2.0); HEMATOCRIT 27.6 % (42.0-52.0); HEMOGLOBIN 8.9 gm/dL (14.0-18.0); MCH 27.7 pg (26.0-34.0); MCHC 32.2 g/dL (28.0-37.0); MCV 85.9 fL (80.0-100.0); MONOCYTES 6.1 % (1.0-8.0); PLATELET COUNT 134 thou/uL (150-400); POLYS 88.8 % (36.0-66.0); RBC 3.21 mil/uL (4.50-6.00); RDW 18.4 % (10.5-14.5); WBC 7.2 thou/uL (4.0-11.0)
--- NOTE | 2020-08-06 03:35 | NUR ---
PT ALERT X1. CONFUSED AND UNCOOPERATIVE AT TIMES. HE PULLS OFF HT MONITOR BLANKETS AND GOWN. VSS AFEBRILE. RR 24. LUNGS SOUND DIMINISHED WITH SLIGHT WHEEZING NOTED. REPOSITIONING PT Q 2 HRS. INC OF STOOL. MAROON COLORED STOOL NOTED IN SMALL- MOD AMTS. FLUIDS CHANGES TO 1/2 NS AT 50 ML HR ORDERED/ LACTIC ACID IN IMPROVING. SEE LABS. BED DOWN CALL LIGHT IN REACH. WILL CONTINUE TO MONITOR PT FOR CHANGES.
[2020-08-06 06:23] LABS: ALBUMIN 2.6 g/dL (3.4-5.0); DIRECT BILIRUBIN 0.9 mg/dL (<0.1-0.2); MAGNESIUM 2.4 mg/dL (1.8-2.4); PHOSPHORUS 3.8 mg/dL (2.6-4.7); TOTAL BILIRUBIN 1.5 mg/dL (0.2-1.0); TOTAL PROTEIN 6.8 g/dL (6.4-8.2)
--- NOTE | 2020-08-06 06:25 | NUR ---
PT RESTING QUIETLY. VSS, CONFUSED . STILL PULLS OFF HT MONITOR.LACTIC ACID IMPROVED TO 2.0
[2020-08-06 18:09] LABS: HEMATOCRIT 28.7 % (42.0-52.0); HEMOGLOBIN 9.4 gm/dL (14.0-18.0)
[2020-08-06 18:21] LABS: CALCIUM 9.3 mg/dL (8.5-10.1); CREATININE 2.1 mg/dL (0.7-1.3); MAGNESIUM 2.5 mg/dL (1.8-2.4); PHOSPHORUS 4.7 mg/dL (2.6-4.7); POTASSIUM 4.3 mmol/L (3.5-5.1)
--- NOTE | 2020-08-06 19:51 | NUR ---
RN ASSUMED PT'S CARE AT 0700AM,RN REPORTED DR ABOUT PT STARTS MORE CONFUSION AND PT IS UNABLE TO TAKE PO MEDICATIONS AND MEALS, PT STILL HAS SMALL BLOOD STOOL TODAY, NEW ORDER , HEAD CT SCAN, AND START TPN , PT'S VS ARE STABLE AT DAY SHIFT, DR SIMS HAS CONSULT, FOR PALLIATIVE CARE AND PERSISTENT LACTIC ACIDOS, PT IS CONTINUING IV ABX, AND RN HAVE UPDATED PT'S INFORMATION.
[2020-08-07] VITALS (9 sets, daily range): BP systolic 12–141; BP diastolic 70–92
[2020-08-07 03:19] LABS: HEMATOCRIT 28.3 % (42.0-52.0); HEMOGLOBIN 9.1 gm/dL (14.0-18.0)
[2020-08-07 03:35] LABS: ALBUMIN 2.5 g/dL (3.4-5.0); CALCIUM 8.6 mg/dL (8.5-10.1); CREATININE 2.1 mg/dL (0.7-1.3); MAGNESIUM 2.4 mg/dL (1.8-2.4); PHOSPHORUS 4.7 mg/dL (2.5-4.9); POTASSIUM 3.8 mmol/L (3.5-5.1); TOTAL BILIRUBIN 1.9 mg/dL (0.2-1.0); TOTAL PROTEIN 6.4 g/dL (6.4-8.2)
--- NOTE | 2020-08-07 07:39 | NUR ---
PT HR REACHED 135 ON MONITOR AFIB. CHECKED PT'S VS.BP WNL, SATS 99% RR 24. SAT PT UP HIGHER IN BED. HR CAME BACK DOWN TO 103. NOW DOWN 88. PT HAD GOOD UO AFTER LASIX LAST NIGHT. EDEMA HAS DECREASED TO RUE. ARM IS ELEVATED BUT STILL WEEPING.LAST LA 1.8. HG 9.1. PT HAS BEEN TYPE AND CROSSED. NO BLOODY STOOLS NOTED TONIGHT, SILVADENE APPLIED TO BUTOCKS/SACRAL AREA. PT REFUSED ORAL CARE. HE BITES DOWN ON SWABS. TPN INFUSING ORDERED.
--- NOTE | 2020-08-07 10:35 | NUR ---
WOUND CARE F/U; MY INITIAL ASSESSMENT OF THIS KNOWN PATIENT. THERE ARE SKIN TEARS TO THE LE'S BILATERALLY AND THE UPPER EXTREMITIES BILATERALLY. THERE IS A DTI PRESENT TO THE SACRUM/BUTTOCKS WHICH IS STABLE AT THIS MOMENT. THE BILATERAL LE'S AND UPPER EXTREMITIES WERE CLEANSED AND APPLIED XEROOFORM,COVERED WITH A BORDER FOAM. SEE DR DAMICO NOTE. RN PRESENT.
--- NOTE | 2020-08-07 13:03 | NUR ---
ST RECEIVED ORDERS FOR BEDSIDE SWALLOW EVALUATION BUT UNABLE TO COMPLETE AT THIS TIME. PER SUPA RN THE PATIENT IS TOO CONFUSED AND NOT SAFE FOR PO INTAKE. HE IS CURRENTLY NPO FOR GI BLEED. ST WILL FOLLOW UP WITH BEDSIDE SWALLOW WHEN ABLE
--- NOTE | 2020-08-07 15:13 | NUR ---
SW reviewed chart and spoke with nursing and attending physician. Pt was transferred to from ICU. Pt is on TPN. GI and palliative care physicians consulted to discuss plan of care with pt/family. SW is following to assist as needed with discharge planning.
--- NOTE | 2020-08-07 19:58 | NUR ---
RN ASSUMED PT'S CARE AT 0700AM, PT OPENS HIS EYES BY VOICE , PT IS CONFUSED, PT IS ON NPO, PT IS CONTINUING IV ABX, AND TPN, PT'S LACTIC ACID LAB RESULT HAS IMPROVED ,PT'S VS ARE STBALE AT DAY SHIFT,PT STILL HAS SMALL BLOOD STOOL TODAY, PT'S FAMILY HAVE VISIT THIS PT, DR SIMS HAS SEEING THIS PT, AND HAS TALKING TO PT'S FAMILY ABOUT PT'S CONDITION.
--- NOTE | 2020-08-07 22:42 | NUR ---
PT CONFUSED. FOLLOWS SOME REQUESTS. USUALLY HE IS IRRITABLE AND WILL NOT FOLLOW COMMANDS. HE PINCHES EYES SHUT FOR PUPIL CHECKS AND IS UNCOOPERATIVE WITH NEURO EXAMS. VSS. AFEBRILE. AFIB ON MONITOR WITH BBB. PT REPOSITIONED Q 2 HRS. CELIO CARE DONE ORDERED TO BUTTOCK AND SACRAL AREA. EDEMA HAS DECREASED GREATLY FROM LAST NIGHT. WILL CONTINUE TO MONITOR PT FOR CHANGES. BED ALARM IS ON.
[2020-08-08] VITALS (9 sets, daily range): BP systolic 124–164; BP diastolic 76–98
[2020-08-08 06:09] LABS: HEMATOCRIT 28.7 % (42.0-52.0); HEMOGLOBIN 9.4 gm/dL (14.0-18.0); MCH 27.8 pg (26.0-34.0); MCHC 32.7 g/dL (28.0-37.0); MCV 84.8 fL (80.0-100.0); RBC 3.39 mil/uL (4.50-6.00); RDW 17.7 % (10.5-14.5); WBC 8.7 thou/uL (4.0-11.0)
[2020-08-08 06:16] LABS: CALCIUM 8.8 mg/dL (8.5-10.1); CREATININE 1.9 mg/dL (0.7-1.3); MAGNESIUM 2.1 mg/dL (1.8-2.4); PHOSPHORUS 4.1 mg/dL (2.5-4.9)
[2020-08-08 06:26] LABS: POTASSIUM 2.6 mmol/L (3.5-5.1)
--- NOTE | 2020-08-08 16:04 | NUR ---
PT ALERT AND ORIENTED X2, CONFUSE AND LETHARGIC. EASILY AROUSABLE AND ABLE TO FOLLOW VERBAL RESONSE. PT FAILED ST EVAL AND CONTINUE TO BE NPO. PT DAUGHTERS VISITING ANAChris UPDTATED ABOUT CARE. FALL PRECAUTION IN PLACE. WILL CONTINUE TO MONITOR
--- NOTE | 2020-08-08 16:12 | NUR ---
JOSESITO reviewed chart and spoke with nursing and attending physician. Pt remains on IV abx, IV Lasix and TPN. Palliative care physician discussed plan of care with pt's family. No plans for peg tube placement. Neuro consult ordered today. Pt did work with physical therapy this afternoon. JOSESITO is following to assist as needed with discharge planning.
[2020-08-09] VITALS (7 sets, daily range): BP systolic 114–140; BP diastolic 68–92
--- NOTE | 2020-08-09 03:33 | NUR ---
RESTING QUIETLY THIS SHIFT. CONTINUES ON TPN. POTASSIUM SUPPLEMENTED THIS SHIFT. ADEQUATE URINE OUTPUT. HE TENDS TO SWAT AT NURSES WHEN TRYING TO PROVIDE CARES
[2020-08-09 06:26] LABS: HEMATOCRIT 30.8 % (42.0-52.0); HEMOGLOBIN 9.8 gm/dL (14.0-18.0); MCH 27.2 pg (26.0-34.0); MCHC 31.9 g/dL (28.0-37.0); MCV 85.5 fL (80.0-100.0); RBC 3.6 mil/uL (4.50-6.00); RDW 18.7 % (10.5-14.5); WBC 11.1 thou/uL (4.0-11.0)
[2020-08-09 06:37] LABS: CALCIUM 8.8 mg/dL (8.5-10.1); CREATININE 1.5 mg/dL (0.7-1.3)
[2020-08-09 06:38] LABS: POTASSIUM 2.7 mmol/L (3.5-5.1)
[2020-08-09 07:57] LABS: CREATININE 1.6 mg/dL (0.7-1.3)
[2020-08-09 08:04] LABS: POTASSIUM 2.7 mmol/L (3.5-5.1)
--- NOTE | 2020-08-09 12:59 | NUR ---
If pt remains on TPN, recommend change to 15%dex, 5%AA, 2.9% lipids at 80ml/hr until further goals of care are established
--- NOTE | 2020-08-09 14:02 | NUR ---
Note Given: Y Facility List Provided:Y Facility Nael: None chosen at this time Karla Ding NP discussed BPCI with this pt 08/04/2020
--- NOTE | 2020-08-09 14:37 | NUR ---
PT CONTINUES TO BE DROWSY, AWAKE AT TIMES BUT RESTLESS. POTASSIUM LEVEL CONTINUE TO BE LOW, REPLACED NEEDED. DURHAM CATH IN PLACE. REPOSITION EVERY 2 HOURS. WOUND CARE COMPLETED AND PICURES TAKEN. PT DAUGHTER VISITING AND UPDAQTED ABOUT CARE. FALL PRECAUTIONS IN PLACE.
[2020-08-09 16:09] LABS: ALBUMIN 2.5 g/dL (3.4-5.0); DIRECT BILIRUBIN 0.9 mg/dL (<0.1-0.2); TOTAL BILIRUBIN 1.7 mg/dL (0.2-1.0); TOTAL PROTEIN 6.3 g/dL (6.4-8.2)
--- NOTE | 2020-08-09 16:20 | NUR ---
SW reviewed chart and spoke with nursing and attending physician. Pulm consult ordered today. Pt remains on TPN/IV abx/IV Lasix. Pt's family interested in pursuing comfort care measures at this time. SW met with pt and dtr at bedside to discuss plan of care. Pt's dtr requests SW contact pt's son, Arslan, to discuss. JOSESITO spoke with pt's son, who states that they are interested in [facility] in hospice unit. JOSESITO faxed referral to [facility] for review. Spoke with intake. Info to be reviewed and hospice will contact pt's son to discuss respite inpt hospice stay and possible transition to termite control service representative care at [facility] if needed. SW followed up with pt's son and provided update. Pt's son is aware and agreeable with plan. Pt will need a repeat COVID test within 48 hours of discharge per hospice's request. SW notified attending physician. SW is following to assist as needed with discharge planning.
[2020-08-09 16:42] LABS: URINE BILIRUBIN NEGATIVE (Negative); URINE BLOOD 1+ (Negative); URINE CLARITY CLEAR; URINE COLOR YELLOW; URINE GLUCOSE-RANDOM* 1+ (Negative); URINE KETONES NEGATIVE (Negative); URINE LEUKOCYTES-REFLEX NEGATIVE (Negative); URINE NITRITE-REFLEX NEGATIVE (Negative); URINE PROTEIN (DIPSTICK) NEGATIVE (Negative); URINE UROBILINOGEN 0.2 E.U./dl (0.2-1.0)
[2020-08-09 16:54] LABS: HYALINE CASTS 4-10 Moderate /LPF (None Seen); URINE RBC 0-2 Rare /HPF (0-2); URINE WBC-REFLEX 0-5 Rare /HPF (0-5)
[2020-08-09 16:55] LABS: BACTERIA-REFLEX 1-9 Few /HPF (None Seen); CRYSTALS None Seen /LPF (None Seen); SQUAMOUS 0-3 Few /LPF (0-3)
--- NOTE | 2020-08-09 23:07 | NUR ---
PT AWAKE RESTING IN BED. PT ALERT WHEN STAFF WALK IN THE ROOM. PT DOES NOT ANSWER QUESTIONS BUT DOES CURSE LOUDLY WHEN ADL CARES ARE PROVIDED. TPN INTACT, [facility]. NPO STATUS. TPN TO BE TURNED OFF FOR MORNING US PER QUICK SERVICE TECHNICIAN. IVF INTACT. BED ALARM ON.
[2020-08-10 03:45] VITALS: BP 136/81
[2020-08-10 06:32] LABS: HEMATOCRIT 32.9 % (42.0-52.0); HEMOGLOBIN 10.3 gm/dL (14.0-18.0); MCH 26.9 pg (26.0-34.0); MCHC 31.2 g/dL (28.0-37.0); MCV 86.3 fL (80.0-100.0); RBC 3.81 mil/uL (4.50-6.00); RDW 18.7 % (10.5-14.5); WBC 11.3 thou/uL (4.0-11.0)
[2020-08-10 06:45] LABS: CALCIUM 9.4 mg/dL (8.5-10.1); CREATININE 1.3 mg/dL (0.7-1.3); PHOSPHORUS 2.7 mg/dL (2.6-4.7)
[2020-08-10 07:09] LABS: POTASSIUM 2.9 mmol/L (3.5-5.1)
[2020-08-10 07:40] VITALS: BP 136/81
[2020-08-10 09:20] VITALS: BP 136/81
--- NOTE | 2020-08-10 11:19 | NUR ---
SPOKE WITH [facility]. THEY PLAN TO MEET WITH FAMILY TODAY AT 4:45 TO DISCUSS HOSPICE. OUTSIDE DNR ON CHART SIGNED BY PHYS IF HOSPICE WANTS TO COMPLETE. UPDATED RN AND PHYS ON VISIT THIS EVENING. POSSIBLE DC TOMORROW.
--- NOTE | 2020-08-10 12:53 | NUR ---
PT FAMILY IN THE ROOM DISCUSSION FOR HOSPICE CARE WITH DR. WILSON.PT REPOSITION NEEDED. MORPHINE AND ATIVAN GIVEN FOR COMFORT. ORAL CARE DONE REPOSITION NEEDED. FALL PRECAUTIONS IN PLACE. WILL CONTINUE TO MONITOR
--- NOTE | 2020-08-10 17:19 | NUR ---
[facility] hospice liason completed onsite info visit and eval. Patient accepted to [facility] hospice house. Family wants to monitor patient throughout night and revisit transfer in am
[2020-08-10 20:00] VITALS: BP 73/35
[2020-08-11 07:24] VITALS: BP 136/77
--- NOTE | 2020-08-11 07:44 | NUR ---
PROGRESS VS TANKING PT AGONAL BREATHING NOTED MORPHINE GIVEN X1, REPOSITIONED NEEDED. CONTINUE TO MONITOR.
--- NOTE | 2020-08-11 08:17 | HC ---
[facility] [place] [address] CONSULTATION Name: CAROLYNE MENESES V Room #: 360-P ADM IN M.R.#: [id number] Admission: 08/02/20 Attend Phys: Sheri Uribe MD Discharge: Date of : 36 Report #: [id number] THIS REPORT FOR: cc: Maciel Teixeira MD, [place] S. MD Althoff, Jeffrey R. MD ~ DATE OF SERVICE: 08/03/2020 CHIEF COMPLAINT: Right lower extremity ulceration with cellulitis as well as sacral-gluteal pressure ulceration. HISTORY OF PRESENT ILLNESS: This is an 80-year-old male patient with whom I am familiar from multiple visits as an outpatient as well as multiple hospitalizations. He has a history of hypertension, hyperlipidemia, previous cerebrovascular accident, chronic kidney disease, and diabetes. 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 He did undergo a biopsy of the right pretibial area earlier in the week. He developed some redness and swelling around this. He was admitted. He is in ICU, but states he feels reasonably well and is feeling much better since admission. ALLERGIES: INCLUDE SULFA. MEDICATIONS: Include tramadol, metolazone, Silvadene cream with morphine, torsemide, gabapentin, Xarelto, Tylenol, Flomax, Desyrel, Klor-Con, docusate sodium, and multivitamins. PAST MEDICAL HISTORY: Again, positive for hypertension, hypercholesterolemia, bilateral shoulder replacements, lumbar laminectomy, sleep apnea, noncompliant with CPAP, colon resection, diverticulitis, diabetes mellitus, and history of COVID infection. SOCIAL HISTORY: The patient has been a previous light smoker. No significant alcohol use. FAMILY HISTORY: Noncontributory. REVIEW OF SYSTEMS: CONSTITUTIONAL: The patient did complain of fever and chills. Denies recent weight loss. NEUROLOGICAL: The patient denies focal weakness, numbness, or tingling. EYES: The patient has blindness of one eye, which is normal baseline. ENT: The patient denies earache, nasal drainage or sore throat. CARDIOVASCULAR: The patient denies chest pain, palpitations or diaphoresis. PULMONARY: The patient denies cough or shortness of breath. GASTROINTESTINAL: The patient denies nausea, vomiting, diarrhea, or abdominal [address] [address] CONSULTATION Name: MOUNA MENESESDRICK Sin Room #: [address] [place] [address].#: [id number] Admission: 08/02/20 Attend Phys: Sheri Uribe MD Discharge: Date of : 36 Report #: [id number] pain. ORTHOPEDIC: The patient does have some pain, swelling and redness to the right lower extremity. Sacral region demonstrates a stage 3 sacral-gluteal pressure ulceration present. PHYSICAL EXAMINATION: NEUROLOGIC: He is alert, moving all 4 extremities spontaneously. LABORATORY DATA: White blood cell count 18,000 with a hemoglobin of 9.9, hematocrit of 31.0. Sodium 135, potassium 3.4, chloride 97, CO2 of 25, BUN 103. Creatinine 2.3, calcium is 8.1. CLINICAL IMPRESSION: 1. Chronic ulcerations, bilateral pretibial regions bilaterally, likely due to underlying venous insufficiency. 2. Diabetes mellitus. 3. Stage 3 sacral-gluteal pressure ulceration. 4. Chronic atrial fibrillation. 5. Hypertension. 6. Idiopathic neuropathy. 7. Chronic kidney disease. RECOMMENDATIONS: At this point in time, we will recommend topical morphine and Silvadene cream to be mixed with barrier cream and applied to the sacral-gluteal region q. 6 hours and p.r.n. Otherwise, left open to air. He will need q. 2 hour turning and positioning, as well as low air loss surface. Recommend topical gentamicin, Xeroform gauze, and a bordered foam to the open areas on the lower extremities. We will hold off on any compression at this time while cellulitis resolves. Continue with medical management of his other underlying pressure issues as well as ongoing nutritional support. I appreciate being asked to see him in consultation. <ELECTRONICALLY SIGNED> By: Zach Mcmillan MD 08/11/20 0817 [id number] Zach Mcmillan MD /nt
--- NOTE | 2020-08-11 12:28 | NUR ---
DISCHARGE NOTE: JOSESITO reviewed chart and spoke with nursing and attending physician. Pt has been accepted to the inpt hospice unit at [facility] JOSESITO spoke with Jada in admissions, who confirms they are able to accept pt today. JOSESITO met with pt and dtr at bedside to provide update. Pt's family are agreeable with discharge plan. JOSESITO arranged ambulance transportation at 1330 per facility's request. Outside the Hospital DNR form signed by attending physician and is on pt's chart. [facility] ambulance form also on pt's chart. JOSESITO spoke with pt's son, Arslan, via phone to provide update and confirmed discharge plan. Awaiting final discharge orders/summary at this time. Nursing provided with number to call report. JOSESITO is following to finalize discharge.
--- NOTE | 2020-08-11 14:54 | NUR ---
assumed care of pt at 0700. pt unresponsive. david castro respirations. morphine and ativan given for partient comfort. family at bedside. plans to d/c [facility] w/ hospice. waiting on transport.
== END 2020-08-11 15:01 | disposition hospice, home (50) | DRG 871 ==
LOC: ER 15:34 → EROBS 19:21 → ICU 19:21 → 3W 08-04 11:29
PROVIDERS: Internal Medicine; Internal Medicine Gastroenterology; Nurse Practitioner Family; Physician Assistant; Specialist; ADMIT Hospitalist; ATTEND Hospitalist
PROC: 02HV33Z Insertion of Infusion Device into Superior Vena Cava, Percutaneous Approach (ICD-10-PCS; principal; 2020-08-02)
DX: A41.9 Sepsis, unspecified organism (principal); L89.153 Pressure ulcer of sacral region, stage 3; L89.303 Pressure ulcer of unspecified buttock, stage 3; R65.21 Severe sepsis with septic shock; J18.9 Pneumonia, unspecified organism; I21.4 Non-ST elevation (NSTEMI) myocardial infarction; J96.01 Acute respiratory failure with hypoxia; G92 Toxic encephalopathy; I50.23 Acute on chronic systolic (congestive) heart failure; E43 Unspecified severe protein-calorie malnutrition; N17.9 Acute kidney failure, unspecified; L97.819 Non-pressure chronic ulcer of other part of right lower leg with unspecified severity; L97.829 Non-pressure chronic ulcer of other part of left lower leg with unspecified severity; L03.115 Cellulitis of right lower limb; I48.21 Permanent atrial fibrillation; N18.4 Chronic kidney disease, stage 4 (severe); I13.0 Hypertensive heart and chronic kidney disease with heart failure and stage 1 through stage 4 chronic kidney disease, or unspecified chronic kidney disease; K92.2 Gastrointestinal hemorrhage, unspecified; N39.0 Urinary tract infection, site not specified; L03.116 Cellulitis of left lower limb; I47.1 Supraventricular tachycardia; E87.0 Hyperosmolality and hypernatremia; D62 Acute posthemorrhagic anemia; Z20.822 Contact with and (suspected) exposure to COVID-19; E78.00 Pure hypercholesterolemia, unspecified; Z96.643 Presence of artificial hip joint, bilateral; M19.90 Unspecified osteoarthritis, unspecified site; E11.40 Type 2 diabetes mellitus with diabetic neuropathy, unspecified; E11.51 Type 2 diabetes mellitus with diabetic peripheral angiopathy without gangrene; H54.62 Unqualified visual loss, left eye, normal vision right eye; F17.220 Nicotine dependence, chewing tobacco, uncomplicated; R53.81 Other malaise; Z96.612 Presence of left artificial shoulder joint; Z96.611 Presence of right artificial shoulder joint; Z66 Do not resuscitate; F03.90 Unspecified dementia, unspecified severity, without behavioral disturbance, psychotic disturbance, mood disturbance, and anxiety; I25.10 Atherosclerotic heart disease of native coronary artery without angina pectoris; I65.29 Occlusion and stenosis of unspecified carotid artery; I95.9 Hypotension, unspecified; I87.8 Other specified disorders of veins; E11.22 Type 2 diabetes mellitus with diabetic chronic kidney disease; E87.6 Hypokalemia; I07.1 Rheumatic tricuspid insufficiency; I05.0 Rheumatic mitral stenosis; R41.0 Disorientation, unspecified; I25.5 Ischemic cardiomyopathy; Z51.5 Encounter for palliative care; S51.812A Laceration without foreign body of left forearm, initial encounter; S51.811A Laceration without foreign body of right forearm, initial encounter; X58.XXXA Exposure to other specified factors, initial encounter; Z90.49 Acquired absence of other specified parts of digestive tract; Z98.49 Cataract extraction status, unspecified eye; Z86.73 Personal history of transient ischemic attack (TIA), and cerebral infarction without residual deficits; Z86.16 Personal history of COVID-19; Z88.2 Allergy status to sulfonamides; Y93.89 Activity, other specified; Y92.89 Other specified places as the place of occurrence of the external cause; Y99.8 Other external cause status
CPT/HCPCS: 10078; 10779; 10879